=== PATIENT | male | born 1960 | race Asian ===

== ENCOUNTER → 2020-09-11 08:44 | Outpatient (BNVA) | payer OTHER, SELFPAY | PROVIDERS: PCP Internal Medicine; Visit Provider Internal Medicine Cardiovascular Disease | DX: I70.0 Atherosclerosis of aorta (principal) | CPT/HCPCS: 93005 ==

== ENCOUNTER 2022-08-28 14:30 | Outpatient (REF) | payer OTHER, SELFPAY ==
[2022-08-29 11:43] LABS: CRP High Sensitivity 1.3 mg/L
== END 2022-08-28 14:31 | disposition home or self-care (01) ==
LOC: HO.LAB 14:30
PROVIDERS: PCP Internal Medicine; Referring Provider Internal Medicine; Visit Provider Internal Medicine Cardiovascular Disease
DX: I70.0 Atherosclerosis of aorta (principal); E78.5 Hyperlipidemia, unspecified
CPT/HCPCS: 36415; 86141; 93005

== ENCOUNTER 2023-10-29 11:15 | Outpatient (AMB) | payer OTHER, SELFPAY ==
--- NOTE | 2023-10-29 11:16 | A.OFFVIS_ITS ---
Intake Vital Signs 10/29/23 11:19 Height 5 ft 9 in Weight 194 lb 0.108 oz BMI 28.6 BP 138/71 Blood Pressure Location Lt brachial Position Sitting Pulse 81 Intake Visit Reasons: Crohn's disease Intake Note: Solis presents in the office as a new patient for Crohns disease. CC: Allergies ciprofloxacin [From Cipro] Allergy (Mild, Verified 10/29/23 11:19) Unknown HPI HPI Comments History of Present Illness Details 63 y.o M with PMH of known hx of crohns disease, GERD with BE, HTN who is here to establish care. IBD History: Age/Year: 30s abd cramping, fatigue, diarrhea with bleeding. Location: Right sided colon with rectal sparing Current meds: None Prev meds:Lialda, Asacol, canasa supp PRN Colonoscopy: [place] 2022 (Roland): Abd surgeries: none Fam hx: sister with crohns. EIM: ? Sacroilitis in 40s. Reports having decade of upper gastrointestinal sx that were attributed to functional GI sx until he landed in hospital in his 30s with GI bleeding and required a scope which confirmed the diagnosis. Has been to many doctors since then including Catarina Bolanos, Terry, Guadalupe, Femi, Roland. [place] reports not available but from previous documentation has had evidence of endoscopic inflammation. Pt hesitant to escalate therapy beyond mesalamine due to side effect profile. Currently: no abd pain, diarrhea, blood in stool. No unintentional weight loss. At an average has 2 flares a year that last a few days. Last hospitalization was in 30s. Also has hx of GERD with BE. Most recent EGD was 2022 - was told no martinez's. Currently not on antisecretory therapy. Frustrated that had conflicting report of GERD/BE but reviewed data available from [facility] including EGD, motiltiy study and Castillo that all CONFIRM gerd with esophagitis. Not a candidate for LINX and TIF. Pt does not wish to pursue surgical fundoplication. PFSH Medical History Carotid artery plaque Atherosclerosis of abdominal aorta Surgical History Hx of colonoscopy History of esophagogastroduodenoscopy (EGD) Hx of hand surgery History of shoulder surgery Family History Father Cancer Mother Arthritis Review of Systems Const All systems reviewed & are unremarkable except as noted in HPI and below Physical Exam Vital Signs: Last Vital Signs Pulse 81 10/29/23 11:19 BP 138/71 10/29/23 11:19 BMI result Body Mass Index 28.6 Gen appear: NAD HEENT: nonicteric, no cervical lymphadenopathy Chest: CTA CVS: Regular S1/S2 Abd: soft, nontender, nondistended, bowel sounds + Ext: no peripheral edema Neuro: A/Ox3, noted to move all extremities spontaneously Psych: interacting appropriately Const General: cooperative, healthy appearing and comfortable Orientation/consciousness: patient oriented x3 Resp Effort & Inspection: normal respiratory effort Neuro General: patient oriented x3 and gait normal Assessment & Plan Assessment & Plan (1) Crohn's colitis: Code(s): K50.10 - Crohn's disease of large intestine without complications Plan: Reported that sometimes subjective sx do not correlate with degree of active colitis and therefore will need objective data such as CRP and fecal calpro. In addition will also get baseline labs for renal and liver function as well as hep, TB in anticipation of biologic in future. Records also requested from [facility] (Dr Watkins's office) for last colo report and path. He will likely need a colo this year or next for IBD dysplasia screening. Was also counseled on sun safety. (2) Barretts esophagus: Code(s): K22.70 - Martinez's esophagus without dysplasia (3) GERD (gastroesophageal reflux disease): Code(s): K21.9 - Gastro-esophageal reflux disease without esophagitis Plan: Pt was educated that based on endoscopic evidence of esophagitis, motility study and pH capsule study, he DOES have gerd and with underlying BE should be on antisecretory therapy saqib PPI to mitigate the albeit small but finite risk of progression to adenoca. Pt understands but would still like to hold off as he reports was told does NOT have barretts. EGD records from Dr Watkins's awaited as above. Plan Follow up 8 weeks Orders: Orders Complete Blood Count no Diff Today K21.9 - Gastro-esophageal reflux disease without esophagitis, K22.70 - Martinez's esophagus without dysplasia, K50.10 - Crohn's disease of large intestine without complications Ferritin Today K21.9 - Gastro-esophageal reflux disease without esophagitis, K22.70 - Martinez's esophagus without dysplasia, K50.10 - Crohn's disease of large intestine without complications Vitamin B12 and Folate Today K21.9 - Gastro-esophageal reflux disease without esophagitis, K22.70 - Martinez's esophagus without dysplasia, K50.10 - Crohn's disease of large intestine without complications Vitamin D 25-OH Total Today K21.9 - Gastro-esophageal reflux disease without esophagitis, K22.70 - Martinez's esophagus without dysplasia, K50.10 - Crohn's disease of large intestine without complications Hepatitis A IgG Today K21.9 - Gastro-esophageal reflux disease without esophagi tis, K22.70 - Martinez's esophagus without dysplasia, K50.10 - Crohn's disease of large intestine without complications Hepatitis C Antibody Today K21.9 - Gastro-esophageal reflux disease without esophagitis, K22.70 - Martinez's esophagus without dysplasia, K50.10 - Crohn's disease of large intestine without complications Thiopurine Methyltransferase Today K21.9 - Gastro-esophageal reflux disease without esophagitis, K22.70 - Martinez's esophagus without dysplasia, K50.10 - Crohn's disease of large intestine without complications C Reactive Protein Today K21.9 - Gastro-esophageal reflux disease without esophagitis, K22.70 - Martinez's esophagus without dysplasia, K50.10 - Crohn's disease of large intestine without complications Calprotectin, Fecal Today K21.9 - Gastro-esophageal reflux disease without esophagitis, K22.70 - Martinez's esophagus without dysplasia, K50.10 - Crohn's disease of large intestine without complications Comprehensive Met. Panel Today K21.9 - Gastro-esophageal reflux disease without esophagitis, K22.70 - Martinez's esophagus without dysplasia, K50.10 - Crohn's disease of large intestine without complications TSH reflex Free T4 Today K21.9 - Gastro-esophageal reflux disease without esophagitis, K22.70 - Martinez's esophagus without dysplasia, K50.10 - Crohn's disease of large intestine without complications Transglutaminase IgA Today K21.9 - Gastro-esophageal reflux disease without esophagitis, K22.70 - Martinez's esophagus without dysplasia, K50.10 - Crohn's disease of large intestine without complications Immunoglobulin A Today K21.9 - Gastro-esophageal reflux disease without esophagitis, K22.70 - Martinez's esophagus without dysplasia, K50.10 - Crohn's disease of large intestine without complications Hepatitis B Core Antibody Today K21.9 - Gastro-esophageal reflux disease without esophagitis, K22.70 - Martinez's esophagus without dysplasia, K50.10 - Crohn's disease of large intestine without complications Hepatitis B Surface Antibody Today K21.9 - Gastro-esophageal reflux disease without esophagitis, K22.70 - Martinez's esophagus without dysplasia, K50.10 - Crohn's disease of large intestine without complications Hepatitis B Surface Antigen Today K21.9 - Gastro-esophageal reflux disease without esophagitis, K22.70 - Martinez's esophagus without dysplasia, K50.10 - Crohn's disease of large intestine without complications T Spot TB Today K21.9 - Gastro-esophageal reflux disease without esophagitis, K22.70 - Martinez's esophagus without dysplasia, K50.10 - Crohn's disease of large intestine without complications IRON PROFILE Today K21.9 - Gastro-esophageal reflux disease without esophagitis, K22.70 - Martinez's esophagus without dysplasia, K50.10 - Crohn's disease of large intestine without complications Coding Level of Care Code New Pt Level 5 (33813) Diagnoses Crohn's colitis K50.10 Barretts esophagus K22.70 GERD (gastroesophageal reflux disease) K21.9
[2023-10-29 11:19] VITALS: BP 138/71; PULSE 81; BMI 28.6
== END 2023-10-29 12:12 | disposition home or self-care (01) ==
PROVIDERS: PCP Family Medicine; Visit Provider Internal Medicine
DX: K50.10 Crohn's disease of large intestine without complications (principal); K22.70 Barrett's esophagus without dysplasia; K21.9 Gastro-esophageal reflux disease without esophagitis
CPT/HCPCS: 99204

== ENCOUNTER 2023-10-29 11:15 | Outpatient (REF) | payer OTHER, SELFPAY ==
[2023-10-29 12:48] LABS: Hematocrit 47.6 % (42.0-52.0); Hemoglobin 16.2 g/dl (14.0-18.0); Mean Corpuscular Hemoglobin 32.4 pg (27.0-33.0); Mean Corpuscular Volume 95.2 fL (80.0-98.0); Mean Platelet Volume 9.6 fL (9.4-12.4); Platelet Count 297 X10*3/uL (160-400); Red Cell Distribution Width 12.6 % (11.0-16.0); White Blood Count 8.6 X10*3/uL (4.8-10.8)
[2023-10-29 13:29] LABS: Alanine Aminotransferase 13 U/L (0-40); Albumin Level 4.1 g/dL (3.5-5.0); Alkaline Phosphatase 81 U/L (39-117); Anion Gap 11 (12-20); Aspartate Amino Transferase 12 U/L (5-37); Bilirubin Total 0.6 mg/dL (0.0-1.0); Blood Urea Nitrogen 22 mg/dL (9-16); C Reactive Protein < 0.10 mg/dL (< or = 0.50); Calcium 9.7 mg/dL (8.4-10.2); Carbon Dioxide 27 mmol/L (22-29); Chloride 106 mmol/L (96-108); Estimated Glomerular Filt Rate > 60; Glucose Random 107 mg/dL (60-115); Iron 145 mcg/dL (45-160); Percent Iron Saturation 47 % (15-50); Potassium 4.2 mmol/L (3.3-5.1); Sodium 140 mmol/L (135-145); Total Iron Binding Capacity 309 mcg/dL (228-428); Total Protein 7.4 g/dL (6.5-8.0); Unsaturated Iron Binding 164 ug/dL
[2023-10-29 13:57] LABS: Ferritin 124 ng/mL (20-250); TSH reflex Free T4 1.33 uIU/mL (0.32-4.0); Vitamin D 25-OH Total 53.2 ng/mL (>30)
[2023-10-29 14:01] LABS: Folate 11.7 ng/mL (> or = 4.0); Vitamin B12 305 pg/mL (200-900)
[2023-10-30 08:59] LABS: Hepatitis A Antibody IgG REACTIVE (Nonreactive); ~Hepatitis A Antibody IgG 1.49 S/CO (0.00-0.99)
[2023-10-30 09:00] LABS: HBS Num1 70.88 mIU/mL (0-7.99); HBc Num1 0.17 S/CO (0.00-0.79); HBsAGNum1 0.44 S/CO (0.00-0.99); Hepatitis B Core Antibody Nonreactive (Nonreactive); Hepatitis B Surface Antigen Negative (Negative); ~HepC Num1 0.17 S/CO (0.00-0.79); ~Hepatitis B Surface Antibody REACTIVE (Nonreactive); ~Hepatitis C Antibody Nonreactive (Nonreactive)
[2023-10-30 17:04] LABS: Immunoglobulin A 322 mg/dL (70-320)
[2023-10-30 19:18] LABS: Transglutaminase IgA <1.0 U/mL
[2023-11-01 13:23] LABS: TS Negative Control Passed; TS Panel A 0; TS Panel B 2; TS Positive Control Passed; TSpotTB Negative (Negative)
[2023-11-16 18:19] LABS: TPMT Activity 14
== END 2023-10-29 11:16 | disposition home or self-care (01) ==
LOC: HO.LAB 11:15
PROVIDERS: PCP Family Medicine; Visit Provider Internal Medicine
DX: Z11.1 Encounter for screening for respiratory tuberculosis (principal); K50.10 Crohn's disease of large intestine without complications; K22.70 Barrett's esophagus without dysplasia; K21.9 Gastro-esophageal reflux disease without esophagitis
CPT/HCPCS: 36415; 80053; 82306; 82607; 82728; 82746; 82784; 83540; 84433; 84443; 85027; 86140; 86364; 86481; 86704; 86706; 86708; 86803; 87340

== ENCOUNTER 2023-11-06 14:40 | Outpatient (REF) | payer OTHER, SELFPAY ==
[2023-11-14 00:03] LABS: Calprotectin, Fecal 34 mcg/g
== END 2023-11-06 14:41 | disposition home or self-care (01) ==
LOC: HO.LNP 14:40
PROVIDERS: Visit Provider Internal Medicine
DX: K50.10 Crohn's disease of large intestine without complications (principal); K21.9 Gastro-esophageal reflux disease without esophagitis; K22.70 Barrett's esophagus without dysplasia
CPT/HCPCS: 83993

== ENCOUNTER 2023-12-29 08:57 | Outpatient (AMB) | payer OTHER, SELFPAY ==
--- NOTE | 2023-12-29 08:58 | A.OFFVIS_ITS ---
Vital Signs 12/29/23 08:59 Height 5 ft 9 in Weight 194 lb 0.108 oz BMI 28.6 BP 145/76 H Blood Pressure Location Lt brachial Position Sitting Pulse 75 Intake Visit Reasons: 8 week follow up crohns, BE Intake Note: Solis presents in the office as a 8 week follow up regarding crohns. CC: states that he is here for results to his labs and get scheduled for procedures. Allergies ciprofloxacin [From Cipro] Allergy (Mild, Verified 12/29/23 09:00) Unknown HPI Comments Details: 63 y.o M with PMH of known hx of crohns disease, GERD with BE, HTN who is here to establish care. 10/29/23: IBD History: Age/Year: 30s abd cramping, fatigue, diarrhea with bleeding. Location: Right sided colon with rectal sparing Current meds: None Prev meds:Lialda, Asacol, canasa supp PRN Colonoscopy: [place] 2022 (Roland): Abd surgeries: none Fam hx: sister with crohns. EIM: ? Sacroilitis in 40s. Reports having decade of upper gastrointestinal sx that were attributed to functional GI sx until he landed in hospital in his 30s with GI bleeding and required a scope which confirmed the diagnosis. Has been to many doctors since then including Catarina Bolanos, Terry, Guadalupe, Femi, Roland. [place] reports not available but from previous documentation has had evidence of endoscopic inflammation. Pt hesitant to escalate therapy beyond mesalamine due to side effect profile. Currently: no abd pain, diarrhea, blood in stool. No unintentional weight loss. At an average has 2 flares a year that last a few days. Last hospitalization was in 30s. Also has hx of GERD with BE. Most recent EGD was 2022 - was told no martinez's. Currently not on antisecretory therapy. Frustrated that had conflicting report of GERD/BE but reviewed data available from [facility] including EGD, motiltiy study and Castillo that all CONFIRM gerd with esophagitis. Not a candidate for LINX and TIF. Pt does not wish to pursue surgical fundoplication. 12/29/23: Here for follow up. Records were requested from [facility] but returned with not a pt here notification. Pt notified. Otherwise, no acute GI issues. Lab results reviewed. Pt on pepcid, cont to be reluctant to switch to PPI despite known hx of GERD with esophagitis and ?BE. PFSH Medical History Carotid artery plaque Atherosclerosis of abdominal aorta Surgical History Hx of colonoscopy History of esophagogastroduodenoscopy (EGD) Hx of hand surgery History of shoulder surgery Family History Father Cancer Mother Arthritis Review of Systems Const All systems reviewed & are unremarkable except as noted in HPI and below Physical Exam Vital Signs: Last Vital Signs Pulse 75 12/29/23 08:59 BP 145/76 H 12/29/23 08:59 BMI result Body Mass Index 28.6 NAD Nonicteric No overt resp distress A/Ox3, normal gait Assessment & Plan Assessment & Plan (1) Crohn's colitis: Code(s): K50.10 - Crohn's disease of large intestine without complications Category: Medical (2) Barretts esophagus: Code(s): K22.70 - Martinez's esophagus without dysplasia Category: Medical (3) GERD (gastroesophageal reflux disease): Code(s): K21.9 - Gastro-esophageal reflux disease without esophagitis Category: Medical Plan #Crohns: Appears to be in biochemical remission. As above, pt not on any meds. Treats occ flares with PO pred course. Plan: - [place] for IBD dysplasia screening due next year. - CRP and fecal calpro in 6 months for proactive disease monitoring/ - If results normal, follow up in a year. #GERD w/ BE Pt was educated that based on endoscopic evidence of esophagitis, motility study and pH capsule study, he DOES have gerd and with underlying BE should be on antisecretory therapy saqib PPI to mitigate the albeit small but finite risk of progression to adenoca. Pt understands but would still like to hold off as he reports was told does NOT have barretts. Records could not be obtained from Dr Watkins's as above. Pt mentions he will call their office and attempt to get them faxed over. Will also book for EGD next year alongside colo. Orders: Orders C Reactive Protein 6 Months K50.10 - Crohn's disease of large intestine without complications Calprotectin, Fecal 6 Months K50.10 - Crohn's disease of large intestine without complications Coding Level of Care Code Est Pt Level 3 (39452) Diagnoses Crohn's colitis K50.10 Barretts esophagus K22.70 GERD (gastroesophageal reflux disease) K21.9
[2023-12-29 08:59] VITALS: BP 145/76; PULSE 75; BMI 28.6
== END 2023-12-29 09:34 | disposition home or self-care (01) ==
PROVIDERS: PCP Family Medicine; Visit Provider Internal Medicine
DX: K50.10 Crohn's disease of large intestine without complications (principal); K22.70 Barrett's esophagus without dysplasia; K21.9 Gastro-esophageal reflux disease without esophagitis
CPT/HCPCS: 99213

== ENCOUNTER → 2023-12-29 08:57 | Outpatient (BNVA) | payer OTHER, SELFPAY | PROVIDERS: PCP Family Medicine; Visit Provider Internal Medicine ==

== ENCOUNTER 2024-03-08 09:53 | Outpatient (AMB) | payer OTHER, SELFPAY ==
[2024-03-08 10:00] VITALS: BP 126/70; PULSE 72; RESP 15; TEMP 36.4; O2SAT 98; BMI 29.3
--- NOTE | 2024-03-08 10:00 | MHC.PC.OV ---
Vital Signs 03/08/24 10:00 Height 5 ft 9 in Weight 198 lb 6 oz BMI 29.3 BP 126/70 Blood Pressure Location Rt brachial Position Sitting Respiration 15 Pulse 72 Pulse Source Pulse Oximeter Temp 97.6 F Temp Source Temporal Artery Scan Pulse Oximetry (%) 98 Oxygen Delivery Method Room Air Intake Visit Reasons: Establish Care Intake Note: Patient states that in the morning he has dark cloudy urine. Hat Braider Required: No Accompanied by: Self / Same As Patient Allergies dog dander Allergy (Intermediate, Verified 03/08/24 10:13) Unknown ciprofloxacin [From Cipro] Allergy (Mild, Verified 03/08/24 10:12) Unknown Tobacco use date assessed: 03/08/24 Dental Screening Dental Screen Date: 03/08/24 Did you have a dental visit in the last 12 months?: No Did you have a dental problem in the last 6 months where you did not have access to dental care?: No Was dental information given to patient?: Yes HPI Establish Care HPI Details New?patient Prior?PCP: Savannah Herman Last?office?visit/CPE: 1 yr Acute?issue(s): complex?cyst?lower?pole?left?kidney & Small R kidney stone, elevated?rheumatoid?factor?and?JACLYN -Urologist [facility] and follows up with them Hypertension -Blood pressure today 126/70. He is on valsartan 80mg daily. PMHx:??Hypertension,?complex?cyst?lower?pole?left?kidney, elevated?rheumatoid?factor?and?JACLYN, Crohn's, L shoulder impingement, Atherosclerosis of abdominal aorta, Carotid artery plaque. Pulm nodule. Followed by Dr. Hernandez. Detached Retina - Dr. Bautista & Dr. Head SurgHx: L detached retina repair, Shoulder surgery, Hand surgery 3-4x, Vasectomy. FHx: Dad: Glioblastoma. Mom: Healthy. Sister: Crohn's. SocHx: Nonsmoker. EtOH none. No drugs. HPI Comments History of Present Illness Details Documentation assistance for Macario Solano MD, was provided by Chauncey Tomlinson,? Forming Press Operator on 03/08/2024 at 11:03 AM ESTDennis Meraz, Dr. Solano, have read, observed, and verified documentation. [facility] Medical History Sleep apnea Cyst of right kidney Carotid artery plaque Atherosclerosis of abdominal aorta Surgical History Hx of colonoscopy History of esophagogastroduodenoscopy (EGD) Hx of hand surgery History of shoulder surgery Family History Father Cancer Mother Arthritis Social History Household Members: None Both parents involved: No Caregiver staying overnight: No Housing: House Are you a primary insurance healthcare representative to a significant other at home: No Do you presently have visiting nurse or other home services: No Alcohol intake: never Patient Tobacco Use Status: Never used Tobacco Tobacco use type: Cigarette e-Cigarette/Vaping Use: Never Used Special leila needs: No service: Yes Current occupational status: retired Cognitive needs: No Hearing needs: No Vision needs: Yes (Patient wears glasses.) Questionnaire PHQ-9 Over the last 2 weeks, how often have you been bothered by any of the following problems? 1. Little interest or pleasure in doing things: not at all 2. Feeling down, depressed, or hopeless: not at all 3. Trouble falling or staying asleep, or sleeping too much: not at all 4. Feeling tired or having little energy: not at all 5. Poor appetite or overeating: not at all 6. Feeling bad about yourself - or that you are a failure or have let yourself or your family down: not at all 7. Trouble concentrating on things, such as reading the newspaper or watching television: not at all 8. Moving or speaking so slowly that other people could have noticed. Or the opposite - being so fidgety or restless that you have been moving around a lot more than usual: not at all 9. Thoughts that you would be better off or of hurting yourself in some way: not at all Total score: 0 Depression Screening Interpretation: Negative Depression Screening Done: Yes 42009 - PHQ-9 Billing: Yes Source: Developed by Drs. Keyshawn Rodriguez, Ladonna Spears, Clovis Frances and colleagues, with an educational maggie from [employer]. Thrive Questionnaire Date Thrive assessed: 03/08/24 I am a: Patient What is your living situation today?: I have a steady place to live Within the past 12 months, did the food you bought not last and you didn't have the money to get more?: Never true Within the past 12 months, did you worry whether your food would run out before you got money to buy more?: Never true Do you have trouble paying for medicines?: No Do you have trouble getting transportation to medical appointments?: No Do you have trouble paying your heating and electricity bill?: No Do you have trouble taking care of your child, family member or friend?: No Do you have trouble with day-to-day activities such as bathing, preparing meals, shopping, managing finances, etc.?: No Are you currently unemployed and looking for a job?: No Are you interested in more education?: No Please select the resources that you would like help with: None Currently or been in a relationship where the following occur: No concerns reported THRIVE Score: 0 AUDIT C Alcohol Use Questionnaire (AUDIT-C) 1. How often do you have a drink containing alcohol?: Never 3. How often do you have six or more drinks on one occasion?: Never Total Score: 0 TEGAN-7 AMB Questionnaire TEGAN-7 Date TEGAN - 7 assessed: 03/08/24 Feeling nervous, anxious, or on edge: 0 = Not at all Not being able to stop or control worryin = Not at all Worrying too much about different things: 0 = Not at all Trouble relaxin = Not at all Being so restless that it is hard to sit still: 0 = Not at all Becoming easily annoyed or irritable: 0 = Not at all Feeling afraid as if something awful might happen: 0 = Not at all Total TEGAN-7 score (0-4 normal; 5-9 mild; 10-14 moderate; 15-21 severe): 0 Source: Developed by Drs. Keyshawn Rodriguez, Ladonna Spears, Clvois Frances and colleagues, with an educational maggie from [employer]. TEGAN-7 Assessment Billing TEGAN-7 Assessment Tool: TEGAN-7 Assessment 82048 Review of Systems Const Denies chills, Denies fatigue, Denies fever(s), Denies headache(s) and Denies weakness ENT Denies dizziness and Denies headache(s) Card Denies chest pain, Denies lightheadedness, Denies dyspnea and Denies other (Palpitations) Resp Denies cough, Denies dyspnea, Denies wheezing and Denies other ( shortness of breath) Musc Denies numbness and Denies tingling Neuro Denies dizziness, Denies headache(s), Denies numbness, Denies tingling, Denies paresthesias and Denies weakness Psych Denies anxiety and Denies depression Endo Denies fatigue Aller/Immun Denies wheezing Physical exam (Primary Care) Vital Signs: Last Vital Signs Temp 97.6 F 03/08/24 10:00 Pulse 72 03/08/24 10:00 Resp 15 03/08/24 10:00 BP 126/70 03/08/24 10:00 Pulse Ox 98 03/08/24 10:00 Oxygen Delivery Method Room Air 03/08/24 10:00 BMI result Body Mass Index 29.3 Tobacco/Smoking Status: Tobacco use Status Tobacco use date assessed 03/08/24 03/08/24 10:16 Patient Tobacco Use Status Never used Tobacco 03/08/24 10:16 Tobacco use type Cigarette 03/08/24 10:16 e-Cigarette/Vaping Use Never Used 03/08/24 10:16 PHQ-9: PHQ-9 Score PHQ-9: Total score 0 03/08/24 10:29 Depression Screening Interpretation: Negative Thrive Assessment: Date of Thrive Assessment Date Thrive assessed 03/08/24 03/08/24 10:16 Currently or been in a relationship where the following occur: No concerns reported Const General: no acute distress and well developed Nutritional Appearance: well nourished Orientation/consciousness: patient oriented x3 [facility] Head: Yes normocephalic and Yes atraumatic Eyes General: appearance normal, both eyes and all related structures Pupils: Equal, round and reactive pupils present EOM: EOMs intact bilaterally Resp Effort & Inspection: normal respiratory effort Auscultation: clear to auscultation bilaterally Cardio Rate: regular rate Rhythm: regular rhythm Heart sounds: S1 normal heart sound present, S2 normal heart sound present, no gallops, no murmurs and no rubs Neuro General: patient oriented x3 and gait normal Cranial nerves: Yes Equal, round and reactive pupils present Psych Affect: normal affect Assessment and Plan Assessment & Plan (1) Left shoulder pain: Code(s): M25.512 - Pain in left shoulder Plan: Followed?by?Ortho?for?left?shoulder?impingement. Continue?conservative?care?including?physical?therapy?with?dry?needling (2) Hypertension: Code(s): I10 - Essential (primary) hypertension Plan: Blood?pressure?is?controlled.??Goal?is?less?than?130/80 Continue?valsartan (3) Complex renal cyst: Code(s): N28.1 - Cyst of kidney, acquired Plan: Followed?by[facility] I?have?asked?him?to?forward?his?urologist?notes (4) Crohn's colitis: Code(s): K50.10 - Crohn's disease of large intestine without complications Plan: Followed?by?[facility] Patient?gets?flare?ups?of?up?to?about?3?times?per?year. Follow-up?with?GI Will?help?manage?acutely?if?patient?calls?with?flare (5) Carotid artery plaque: Code(s): I65.29 - Occlusion and stenosis of unspecified carotid artery Plan: Maintain?blood?pressure?less?than?130/80 Recommended?LDL?cholesterol?less?than?70.??Patient?will?work?on?diet?low?in?saturated?fats?and?cholesterol Checking?lipids?with?upcoming?blood?draw. He?is?somewhat?against?taking?statin?medications?but?we?did?have?a?long?discussion?about?this. Will?try?to?have?patient?reach?goal?without?medication?however?we?did?talk?about?the?fact?that?statin?medications?reduce?intravascular?inflammation?which?he?may?have?due?to?Crohn's?so?best?recommendation?might?still?be?using?a?statin?at?low?dose. (6) Elevated antinuclear antibody (JACLYN) level: Code(s): R76.8 - Other specified abnormal immunological findings in serum Plan: JACLYN?and?rheumatoid?factor?mildly?elevated?likely?secondary?to?Crohns (7) Laboratory exam ordered as part of routine general medical examination: Code(s): Z00.00 - Encounter for general adult medical examination without abnormal findings Plan: Patient?requests checking?magnesium?level?and?A1c?along?with?his?pre?physical?labs. Ordered (8) Hyperlipidemia: Code(s): E78.5 - Hyperlipidemia, unspecified Plan: LDL?cholesterol?is?above?goal?of?less?than?70?for?this?patient See?above?for?discussion?on?recommendations (9) Atherosclerosis of abdominal aorta: Code(s): I70.0 - Atherosclerosis of aorta Plan: As?above Orders: Orders Complete Blood Count Auto Diff Today Z00.00 - Encounter for general adult medical examination without abnormal findings Lipid Panel Today Z00.00 - Encounter for general adult medical examination without abnormal findings Prostate Specific Antigen Scr Today Z00.00 - Encounter for general adult medical examination without abnormal findings, Z12.5 - Encounter for screening for malignant neoplasm of prostate TSH reflex Free T4 Today Z00.00 - Encounter for general adult medical examination without abnormal findings UA and rflx microscopic Today Z00.00 - Encounter for general adult medical examination without abnormal findings Hemoglobin A1c Today R73.01 - Impaired fasting glucose, Z00.00 - Encounter for general adult medical examination without abnormal findings Magnesium Today Z00.00 - Encounter for general adult medical examination without abnormal findings Comprehensive [place]. Panel Fast Today Z00.00 - Encounter for general adult medical examination without abnormal findings Microalbumin, Random (w Creat) Today I10 - Essential (primary) hypertension, Z00.00 - Encounter for general adult medical examination without abnormal findings Vitamin D 25-OH Total Today E55.9 - Vitamin D deficiency, unspecified, Z00.00 - Encounter for general adult medical examination without abnormal findings Coding Level of Care Code New Pt Level 4 (02739) Diagnoses Left shoulder pain M25.512 Hypertension I10 Complex renal cyst N28.1 Crohn's colitis K50.10 Carotid artery plaque I65.29 Elevated antinuclear antibody (JACLYN) level R76.8 Laboratory exam ordered as part of routine general medical examination Z00.00 Hyperlipidemia E78.5 Atherosclerosis of abdominal aorta I70.0 Additional Codes TEGAN-7 Assessment Billing - TEGAN-7 Assessment Tool: TEGAN-7 Assessment 88905 ([id number])
== END 2024-03-08 11:00 | disposition home or self-care (01) ==
PROVIDERS: PCP Family Medicine; Visit Provider Family Medicine
DX: M25.512 Pain in left shoulder (principal); K50.10 Crohn's disease of large intestine without complications; I70.0 Atherosclerosis of aorta; I10 Essential (primary) hypertension; N28.1 Cyst of kidney, acquired; I65.29 Occlusion and stenosis of unspecified carotid artery; R76.8 Other specified abnormal immunological findings in serum; E78.5 Hyperlipidemia, unspecified
CPT/HCPCS: 99214

== ENCOUNTER 2024-05-03 08:13 | Outpatient (REF) | payer OTHER, SELFPAY ==
[2024-05-03 11:17] LABS: MANUAL DIFF FLAG NO
[2024-05-03 11:26] LABS: Appearance Urine Turbid; Color Urine Yellow; Glucose Urine UA Negative (Negative); Leukocyte Esterase Urine Negative (Negative); Nitrite Urine Negative (Negative); PH 5.5 (5.0-9.0); Specific Gravity - Urine 1.025 (1.005-1.025); Urine Blood Negative (Negative); Urine Ketones Negative (Negative); Urine Protein Trace mg/dL (Neg-Trace)
[2024-05-03 11:49] LABS: Basophils Percent Auto 0.7 % (0-2); Eosinophils Absolute Auto 0.1 X10*3/uL (0.0-0.4); Eosinophils Percent Auto 2.1 % (0-4); Hematocrit 46.5 % (42.0-52.0); Hemoglobin 15.9 g/dl (14.0-18.0); Imm Gran Abs Auto 0.01 X10*3/uL (0.00-0.03); Imm Gran Pct Auto 0.2 % (0.0-0.4); Lymphocytes Absolute Auto 1.7 X10*3/uL (1.2-4.9); Lymphocytes Percent Auto 29.3 % (20-40); Mean Corpuscular HGB Conc 34.2 g/dl (31.0-36.0); Mean Corpuscular Hemoglobin 31.6 pg (27.0-33.0); Mean Corpuscular Volume 92.4 fL (80.0-98.0); Mean Platelet Volume 9.6 fL (9.4-12.4); Monocytes Absolute Auto 0.7 X10*3/uL (0.1-1.2); Monocytes Percent Auto 11.5 % (2-11); Neutrophils Absolute Auto 3.2 x10*3/uL (2.0-8.3); Neutrophils Percent Auto 56.2 % (45-73); Platelet Count 169 X10*3/uL (160-400); Red Blood Count 5.03 X10*6/uL (4.60-5.80); Red Cell Distribution Width 12.3 % (11.0-16.0); White Blood Count 5.7 X10*3/uL (4.8-10.8)
[2024-05-03 12:16] LABS: Estimated Average Glucose 111 mg/dL; Hemoglobin A1c % 5.5 % (<6.0)
[2024-05-03 12:19] LABS: Prostate Specific Antigen Scr 1.24 ng/mL (<0.05-4.0)
[2024-05-03 12:29] LABS: Creatinine Urine 198.92 mg/dL
[2024-05-03 13:09] LABS: Alanine Aminotransferase 22 U/L (0-40); Albumin Level 3.7 g/dL (3.5-5.0); Alkaline Phosphatase 55 U/L (39-117); Anion Gap 10 (12-20); Aspartate Amino Transferase 15 U/L (5-37); Bilirubin Total 0.6 mg/dL (0.0-1.0); Blood Urea Nitrogen 14 mg/dL (9-16); Calcium 8.7 mg/dL (8.4-10.2); Carbon Dioxide 25 mmol/L (22-29); Chloride 110 mmol/L (96-108); Cholesterol 136 mg/dL (<200); Estimated Glomerular Filt Rate > 60; Glucose Fasting 109 mg/dL (60-99); HDL Cholesterol 38 mg/dL (>40); LDL Cholesterol Calculated 76 mg/dL (<100); Potassium 4.1 mmol/L (3.3-5.1); Sodium 141 mmol/L (135-145); TSH reflex Free T4 1.98 uIU/mL (0.32-4.0); Total Protein 6.6 g/dL (6.5-8.0); Triglycerides 112 mg/dL (<150); Vitamin D 25-OH Total 62.7 ng/mL (>30)
== END 2024-05-03 08:14 | disposition home or self-care (01) ==
LOC: HO.WFDLDS 08:13
PROVIDERS: Visit Provider Family Medicine
DX: Z00.00 Encounter for general adult medical examination without abnormal findings (principal); I10 Essential (primary) hypertension; Z12.5 Encounter for screening for malignant neoplasm of prostate; R73.01 Impaired fasting glucose; E55.9 Vitamin D deficiency, unspecified
CPT/HCPCS: 36415; 80053; 80061; 81003; 82043; 82306; 82570; 83036; 83735; 84153; 84443; 85025; 86140

== ENCOUNTER 2024-05-05 11:56 | Outpatient (REF) | payer OTHER, SELFPAY ==
[2024-05-14 03:33] LABS: Calprotectin, Fecal 12 mcg/g
== END 2024-05-05 11:57 | disposition home or self-care (01) ==
LOC: HO.LNP 11:56
PROVIDERS: Visit Provider Internal Medicine
DX: K50.10 Crohn's disease of large intestine without complications (principal)
CPT/HCPCS: 83993

== ENCOUNTER 2024-05-20 09:30 | Outpatient (AMB) | payer OTHER, SELFPAY ==
--- NOTE | 2024-05-20 09:36 | A.OFFPC_ITS ---
Vital Signs 05/20/24 09:37 Height 5 ft 9 in Weight 198 lb 8 oz BMI 29.3 BP 132/72 Blood Pressure Location Rt brachial Position Sitting Respiration 14 Pulse 75 Pulse Source Pulse Oximeter Pulse Oximetry (%) 95 Oxygen Delivery Method Room Air Intake Visit Reasons: CPE with f/u labs and health maint. Intake Note: Physical Yarn Handler Required: No Allergies dog dander Allergy (Intermediate, Verified 05/20/24 09:36) Unknown ciprofloxacin [From Cipro] Allergy (Mild, Verified 05/20/24 09:36) Unknown Medication List - Last Reconciled 05/20/24 by Sunita Sharp PA-C valsartan 80 mg PO DAILY Tobacco use date assessed: 03/08/24 Dental Screening Dental Screen Date: 03/08/24 Did you have a dental visit in the last 12 months?: Yes Did you have a dental problem in the last 6 months where you did not have access to dental care?: No Was dental information given to patient?: Patient has dentist HPI CPE with f/u labs and health maint. HPI Details Patient is a 64-year-old male with a significant past medical history of hypertension, hyperlipidemia, complex renal cysts, Crohn's disease, Pak's esophagus, atherosclerosis presenting today for a physical exam. He normally follows with Dr. Solano. He is relatively new to this practice. Prior?PCP: Dr Kelly Lowery [facility] uro: Follows with [facility] for his renal cysts and kidney stone. He gets routine ultrasounds. He has had an MRI that was ordered by his mortgage or loan underwriter to monitor this as well. PULM: Has a history of a pulmonary nodule. Follows with Dr. Sierra CV: Blood pressure today in the office is 132/72. He is on valsartan 80 mg. States that he eats very healthy. Follows with cardiology for routine surveillance of his atherosclerosis. Last LDL was 76. He does not like the idea of taking statins. GI: His Crohn's disease and GERD is controlled with diet. Follows with Gastroenterology. SurgHx: L detached retina repair, Shoulder surgery, Hand surgery 3-4x, Vasectomy. FHx: Dad: Glioblastoma. Mom: Healthy. Sister: Crohn's. SocHx: Nonsmoker. EtOH none. No drugs PFSH Medical History (Updated 07/15/24 @ 10:39 by Chauncey Tomlinson) Sleep apnea Cyst of right kidney Carotid artery plaque Atherosclerosis of abdominal aorta Surgical History Hx of colonoscopy History of esophagogastroduodenoscopy (EGD) Hx of hand surgery History of shoulder surgery Family History Father Cancer Mother Arthritis Social History Household Members: None Both parents involved: No Caregiver staying overnight: No Housing: House Are you a primary post anesthesia care unit nurse to a significant other at home: No Do you presently have visiting nurse or other home services: No Alcohol intake: never Patient Tobacco Use Status: Never used Tobacco Tobacco use type: Cigarette e-Cigarette/Vaping Use: Never Used Special leila needs: No service: Yes Current occupational status: retired Cognitive needs: No Hearing needs: No Vision needs: Yes (Patient wears glasses.) Questionnaire PHQ-9 Over the last 2 weeks, how often have you been bothered by any of the following problems? 1. Little interest or pleasure in doing things: not at all 2. Feeling down, depressed, or hopeless: not at all 3. Trouble falling or staying asleep, or sleeping too much: not at all 4. Feeling tired or having little energy: not at all 5. Poor appetite or overeating: not at all 6. Feeling bad about yourself - or that you are a failure or have let yourself or your family down: not at all 7. Trouble concentrating on things, such as reading the newspaper or watching television: not at all 8. Moving or speaking so slowly that other people could have noticed. Or the opposite - being so fidgety or restless that you have been moving around a lot more than usual: not at all 9. Thoughts that you would be better off or of hurting yourself in some way: not at all Total score: 0 Depression Screening Interpretation: Negative Depression Screening Done: Yes 13333 - PHQ-9 Billing: Yes Source: Developed by Drs. Keyshawn Rodriguez, Ladonna Spears, Clovis Frances and colleagues, with an educational maggie from [employer] Thrive Questionnaire Date Thrive assessed: 03/08/24 I am a: Patient What is your living situation today?: I choose not to answer this question Within the past 12 months, did the food you bought not last and you didn't have the money to get more?: I choose not to answer this question Within the past 12 months, did you worry whether your food would run out before you got money to buy more?: I choose not to answer this question Do you have trouble paying for medicines?: I choose not to answer this question Do you have trouble getting transportation to medical appointments?: I choose not to answer this question Do you have trouble paying your heating and electricity bill?: I choose not to answer this question Do you have trouble taking care of your child, family member or friend?: I choose not to answer this question Do you have trouble with day-to-day activities such as bathing, preparing meals, shopping, managing finances, etc.?: I choose not to answer this question Are you currently unemployed and looking for a job?: I choose not to answer this question Are you interested in more education?: I choose not to answer this question Please select the resources that you would like help with: None Currently or been in a relationship where the following occur: I choose not to answer THRIVE Score: 0 AUDIT C Alcohol Use Questionnaire (AUDIT-C) 1. How often do you have a drink containing alcohol?: Never 3. How often do you have six or more drinks on one occasion?: Never Total Score: 0 TEGAN-7 AMB Questionnaire TEGAN-7 Date TEGAN - 7 assessed: 05/20/24 Feeling nervous, anxious, or on edge: 0 = Not at all Not being able to stop or control worryin = Not at all Worrying too much about different things: 0 = Not at all Trouble relaxin = Not at all Being so restless that it is hard to sit still: 0 = Not at all Becoming easily annoyed or irritable: 0 = Not at all Feeling afraid as if something awful might happen: 0 = Not at all Total TEGAN-7 score (0-4 normal; 5-9 mild; 10-14 moderate; 15-21 severe): 0 Source: Developed by Drs. Keyshawn Rodriguez, Ladonna SpearsClovis and colleagues, with an educational maggie from [employer] TEGAN-7 Assessment Billing TEGAN-7 Assessment Tool: TEGAN-7 Assessment 88335 Physical exam (Primary Care) Vital Signs: Last Vital Signs Pulse 75 05/20/24 09:37 Resp 14 05/20/24 09:37 BP 132/72 05/20/24 09:37 Pulse Ox 95 05/20/24 09:37 Oxygen Delivery Method Room Air 05/20/24 09:37 BMI result Body Mass Index 29.3 Tobacco/Smoking Status: Tobacco use Status Tobacco use date assessed 03/08/24 05/20/24 09:45 Patient Tobacco Use Status Never used Tobacco 05/20/24 09:45 Tobacco use type Cigarette 05/20/24 09:45 e-Cigarette/Vaping Use Never Used 05/20/24 09:45 PHQ-9: PHQ-9 Score PHQ-9: Total score 0 05/20/24 09:45 Depression Screening Interpretation: Negative Thrive Assessment: Date of Thrive Assessment Date Thrive assessed 03/08/24 05/20/24 09:45 Currently or been in a relationship where the following occur: I choose not to answer Const Orientation/consciousness: patient oriented x3 HENMT Ears: hearing grossly normal bilaterally and TM's normal bilaterally General nose exam: No nasal polyps present Face and sinus: Yes sinuses nontender Mouth: Normal oral and palatal mucosa present Eyes Pupils: Equal, round and reactive pupils present EOM: EOMs intact bilaterally Neck Neck: Yes full ROM and Yes no lymphadenopathy Thyroid: Thyroid normal Chest Chest palpation & inspection: normal inspection of the chest Resp Auscultation: clear to auscultation bilaterally Cardio Rate: regular rate Rhythm: regular rhythm Heart sounds: S1 normal heart sound present and S2 normal heart sound present Peripheral pulses: Peripheral pulses 2+ throughout GI Other: Soft, nontender Auscultation: normal bowel sounds Rectal Exam - Male: Yes deferred General: Yes no CVA tenderness Back/Spine/Pelvis Other: Nontender Back: no CVA tenderness Skin General skin exam: no rashes or lesions noted Neuro General: patient oriented x3, gait normal, CN's II-XI intact bilaterally and deep tendon reflexes 2+ bilaterally Cranial nerves: Yes Equal, round and reactive pupils present Motor exam (neuro): 5/5 motor strength present throughout Sensory Exam: double simultaneous stimulation for sensation normal Coordination: [id number] test normal and Romberg test negative Extrem General: Yes normal to inspection and Yes full ROM Psych Affect: normal affect Attitude: cooperative Thought process: Normal thought process present Thought content: Normal thought content present Insight: Good insight present (Psych) Judgement: Good judgement present (Psych) Results Reviewed Results Reviewed: Laboratory Tests 05/03/24 05/03/24 08:15 08:20 WBC 5.7 RBC 5.03 Hgb 15.9 Hct 46.5 Plt Count 169 D Sodium 141 Potassium 4.1 Chloride 110 H Carbon Dioxide 25 Anion Gap 10 L Creatinine 0.89 Estimated GFR > 60 Estimat Average Glucose 111 Hemoglobin A1c % 5.5 Triglycerides 112 Cholesterol 136 LDL Cholesterol, Calc 76 HDL Cholesterol 38 L PSA Screen 1.24 TSH 1.98 Urine Creatinine 198.92 Urine Microalbumin 16.0 Microalb/Creat Ratio 8.0 Assessment and Plan Assessment & Plan (1) Routine general medical examination at a health care facility: Code(s): Z00.00 - Encounter for general adult medical examination without abnormal findings Plan: Health maintenance reviewed. Labs reviewed today with patient. (2) Crohn's colitis: Code(s): K50.10 - Crohn's disease of large intestine without complications Plan: Stable. Continue current regimen (3) Complex renal cyst: Code(s): N28.1 - Cyst of kidney, acquired Plan: Follows with [facility]. (4) Carotid artery plaque: Code(s): I65.29 - Occlusion and stenosis of unspecified carotid artery Plan: Continues to eat very healthy. Managed by Cardiology. Does not want statins. (5) Hypertension: Code(s): I10 - Essential (primary) hypertension Plan: BP WNL. Continue current regimen Plan Follow up in 6 months with PCP or sooner if needed. Patient understands and agrees with the plan. Medications: New betamethasone valerate 0.1% 1 appl topical BID PRN 45 grams 3RF rash valsartan 80 mg PO DAILY 90 tabs 3RF Coding Level of Care Code Est Pt Prev Care 40-64y(78452) Diagnoses Routine general medical examination at a health care facility Z00.00 Crohn's colitis K50.10 Complex renal cyst N28.1 Carotid artery plaque I65.29 Hypertension I10 Additional Codes TEGAN-7 Assessment Billing - TEGAN-7 Assessment Tool: TEGAN-7 Assessment 55630 ([id number])
[2024-05-20 09:37] VITALS: BP 132/72; PULSE 75; RESP 14; O2SAT 95; BMI 29.3
== END 2024-05-20 10:52 | disposition home or self-care (01) ==
PROVIDERS: PCP Family Medicine; Visit Provider Physician Assistant
DX: Z00.00 Encounter for general adult medical examination without abnormal findings (principal); K50.10 Crohn's disease of large intestine without complications; N28.1 Cyst of kidney, acquired; I65.29 Occlusion and stenosis of unspecified carotid artery; I10 Essential (primary) hypertension

== ENCOUNTER → 2024-05-20 09:30 | Outpatient (BNVA) | payer OTHER, SELFPAY | PROVIDERS: PCP Family Medicine; Visit Provider Physician Assistant | DX: Z00.00 Encounter for general adult medical examination without abnormal findings (principal); K50.10 Crohn's disease of large intestine without complications; N28.1 Cyst of kidney, acquired; I65.29 Occlusion and stenosis of unspecified carotid artery; I10 Essential (primary) hypertension | CPT/HCPCS: 96127 ==

== ENCOUNTER 2024-07-30 09:26 | Outpatient (AMB) | payer OTHER, SELFPAY ==
--- NOTE | 2024-07-30 09:29 | AM.OFFWIN_ITS ---
Intake Vital Signs 07/30/24 09:32 Height 5 ft 9 in Weight 204 lb BMI 30.1 BP 138/80 Blood Pressure Location Rt brachial Position Sitting Respiration 13 Pulse 79 Pulse Source Pulse Oximeter Temp 97.4 F Temp Source Oral Pulse Oximetry (%) 97 Oxygen Delivery Method Room Air Intake Visit Reasons: Chills, fever had a cold since last week Intake Note: Patient is complaining of coughing, post nasal drip, fever, and chills x10 days Patient Tobacco Use Status: Never used Tobacco Allergies dog dander Allergy (Intermediate, Verified 07/30/24 09:43) Unknown ciprofloxacin [From Cipro] Allergy (Mild, Verified 07/30/24 09:43) Unknown Medication List - Last Reconciled 07/30/24 by JAZMINE Lemos-KAREEN betamethasone valerate 0.1% 1 appl topical BID PRN valsartan 80 mg PO DAILY Do you need a note to return to daycare/school/sports/work: No HPI HPI Comments History of Present Illness Details History of Present Illness The patient is a 64-year-old male presenting with URI sx. The illness began last Friday with symptoms indicative of a common cold, including the production of thick mucus and possible chills. The patient noted marginal improvement by the following Friday; however, over the past few days, his condition has deteriorated. He reports night sweats, waking up drenched, and persistent chills. He also experiences fatigue. The patient has a known history of Crohn's disease, which involves careful consideration when prescribing medications such as antibiotics. Exam Awake alert NAD Sclera and conjunctiva clear bilat Nares mucoid d/c on R, turbinates erythematous and edematous worse on R, + frontal sinus tenderness with palpation TM intact bilat, + injection on R MMM, pharynx + mucoid PND RRR LS CTAB Plan - Acute Sinusitis: The plan is to initia te antibiotic therapy with Amoxicillin- Clavulanate Augmentin. Given the patient's history of Crohn's disease, care will be taken to select an antibiotic regimen with a tolerable side effect profile for his condition. I will review the patient's medical chart to confirm past medication tolerance before prescription. The patient will obtain medication from [facility] on [facility]. I reviewed chart, no listed AB use recently. Consulted w/ GI ok to use Augmentin, if diarrhea, use fiber. - Crohn's Disease: I will conduct additi onal research into the patient's history of Crohn's disease to ensure the prescribed antibiotic regimen is compatible with his condition and does not exacerbate symptoms. Further steps include confirming a history of previous interventions and complications related to Crohn?s disease. Patient was informed and verbally consented to the use of an ambient scribe for clinic note documentation during this visit. Total time spent caring for the patient today was 30 minutes. This includes time spent before the visit reviewing the chart, time spent during the visit, and time spent after the visit on documentation [facility] Medical History (Updated 03/08/24 @ 10:39 by Chauncey Tomlinson) Sleep apnea Cyst of right kidney Carotid artery plaque Atherosclerosis of abdominal aorta Surgical History Hx of colonoscopy History of esophagogastroduodenoscopy (EGD) Hx of hand surgery History of shoulder surgery Family History Father Cancer Mother Arthritis Social History Household Members: None Both parents involved: No Caregiver staying overnight: No Housing: House Are you a primary critical care specialist to a significant other at home: No Do you presently have visiting nurse or other home services: No Alcohol intake: never Patient Tobacco Use Status: Never used Tobacco Tobacco use type: Cigarette e-Cigarette/Vaping Use: Never Used Special leila needs: No service: Yes Current occupational status: retired Cognitive needs: No Hearing needs: No Vision needs: Yes (Patient wears glasses.) Physical Exam Vital Signs: Last Vital Signs Temp 97.4 F 07/30/24 09:32 Pulse 79 07/30/24 09:32 Resp 13 07/30/24 09:32 BP 138/80 07/30/24 09:32 Pulse Ox 97 07/30/24 09:32 Oxygen Delivery Method Room Air 07/30/24 09:32 BMI result Body Mass Index 30.1 Assessment & Plan Assessment & Plan (1) Acute bacterial sinusitis: Code(s): J01.90 - Acute sinusitis, unspecified; B96.89 - Other specified bacterial agents as the cause of diseases classified elsewhere (2) Crohn's colitis: Code(s): K50.10 - Crohn's disease of large intestine without complications Plan . Medications: New amoxicillin-pot clavulanate 875-125 mg 1 tab PO BID 7 days 14 tabs 0RF Coding Level of Care Code Est Pt Level 4 (93427) Diagnoses Acute bacterial sinusitis J01.90; B96.89 Crohn's colitis K50.10
[2024-07-30 09:32] VITALS: BP 138/80; PULSE 79; RESP 13; TEMP 36.3; O2SAT 97; BMI 30.1
--- OUTSIDE RECORDS SUMMARY | 2024-08-04 06:57 | XMS_ITS ---
Author Name [facility] Organization Unknown History of Medication Use Medication Directions Dispensed Refills Start Date End Date Stat Cholecalciferol (VITAMIN D3) 2000 UNITS Cap capsule Vitamin D 2000 UNIT Oral Capsule 1 TAB DAILY Refills: 0 Active 02/08/2023 active Sodium Sulfate-Mag Sulfate-KCl (Sutab) 4441-276-829 MG Tab One dose of 12 tablets on the Day Prior to procedure. One dose of 12 tablets on the Day Of the procedure. 02/08/2023 aborted Sodium Sulfate-Mag Sulfate-KCl (Sutab) 1686-932-983 MG Tab Take 12 tablets by mouth once. One dose of 12 tablets on the Day Prior to procedure. One dose of 12 tablets on the Day Of the procedure. BIN: [id number] PCN: CN GROUP: [id number] ID: [id number] 02/09/2023 active tadalafil (CIALIS) 20 MG tablet 1 tablet 02/08/2023 active Zinc 50 MG Tab 1 tablet 04/25/2023 activ e PANTOprazole (PROTONIX) 40 MG EC tablet 02/08/2023 aborted Calcium Carb-Cholecalciferol 500-10 MG-MCG Tab Calcium-Vitamin D 500-400 MG-UNIT Oral Tablet 1 TAB DAILY Refills: 0 Active 02/08/2023 aborted famotidine (PEPCID) 40 MG tablet Take 1 tablet (40 mg total) by mouth nightly. 02/08/2023 active Ascorbic Acid (vitamin C) 1000 MG tablet Take 1,000 mg by mouth daily. 02/08/2023 active magnesium gluconate (MAGONATE) 500 (27 Mg) MG tablet Take 500 mg by mouth 2 (two) times a day. 02/08/2023 active mesalamine (LIALDA) 1.[address] tablet Take 4 tablets (4.8 g total) by mouth daily. 02/08/2023 active valsartan (DIOVAN) 80 MG tablet 02/08/2023 active Menaquinone-7 (K2 PO) Take by mouth. 02/08/2023 active
== END 2024-07-30 10:55 | disposition home or self-care (01) ==
PROVIDERS: PCP Family Medicine; Visit Provider Nurse Practitioner Family
DX: J01.90 Acute sinusitis, unspecified (principal); B96.89 Other specified bacterial agents as the cause of diseases classified elsewhere; K50.10 Crohn's disease of large intestine without complications

== ENCOUNTER 2024-10-07 11:52 | Outpatient (AMB) | payer OTHER, SELFPAY ==
--- NOTE | 2024-10-07 12:14 | A.OFFPC_ITS ---
Vital Signs 10/07/24 12:16 Height 5 ft 9 in Weight 208 lb 4 oz BMI 30.7 BP 116/60 Blood Pressure Location Lt brachial Position Sitting Respiration 14 Pulse 80 Pulse Source Pulse Oximeter Temp 97.7 F Temp Source Oral Pulse Oximetry (%) 95 Oxygen Delivery Method Room Air Intake Visit Reasons: testosterone replacement therapy Intake Note: pt would like to discuss testosterone therapy Allergies dog dander Allergy (Intermediate, Verified 10/07/24 12:15) Unknown ciprofloxacin [From Cipro] Allergy (Mild, Verified 10/07/24 12:15) Unknown Tobacco use date assessed: 03/08/24 Dental Screening Dental Screen Date: 03/08/24 HPI testosterone replacement therapy HPI Details 64 y/o male presents today to discuss te stosterone therapy. Has complaints of fatigue, decreased libido. No recent testosterone level to review. Does have a CPAP machine which he has gotten last year. He uses this as prescribed. Labs drawn 05/03/24. Reviewed labs with pt. Elevated fasting glucose of 109. A1c 5.5%. Triglycerides 112. TC 136. LDL 76. HDL low at 38. HPI Comments History of Present Illness Details Documentation assistance for Macario Solano MD, was provided by Chauncey Tomlinson,? Stencil Inspector on 10/07/2024 at 12:46 PM EST. I, Dr. Solano, have read, observed, and verified documentation. ?? ON LICENSE OF [facility] Medical History (Updated 10/07/24 @ 12:57 by Chauncey Tomlinson) Sleep apnea Cyst of right kidney Carotid artery plaque Atherosclerosis of abdominal aorta Surgical History Hx of colonoscopy History of esophagogastroduodenoscopy (EGD) Hx of hand surgery History of shoulder surgery Family History Father Cancer Mother Arthritis Social History Household Members: None Both parents involved: No Caregiver staying overnight: No Housing: House Are you a primary acute care certified nursing assistant to a significant other at home: No Do you presently have visiting nurse or other home services: No Alcohol intake: never Patient Tobacco Use Status: Never used Tobacco Tobacco use type: Cigarette e-Cigarette/Vaping Use: Never Used Special leila needs: No service: Yes Current occupational status: retired Cognitive needs: No Hearing needs: No Vision needs: Yes (Patient wears glasses.) Questionnaire PHQ-9 Over the last 2 weeks, how often have you been bothered by any of the following problems? 1. Little interest or pleasure in doing things: several days 4. Feeling tired or having little energy: nearly every day 5. Poor appetite or overeating: not at all 7. Trouble concentrating on things, such as reading the newspaper or watching television: nearly every day 8. Moving or speaking so slowly that other people could have noticed. Or the opposite - being so fidgety or restless that you have been moving around a lot more than usual: not at all 9. Thoughts that you would be better off or of hurting yourself in some way: not at all Source: Developed by Drs. Keyshawn Rodriguez, Ladonna Spears, Clovis Frances and colleagues, with an educational maggie from [employer] Thrive Questionnaire Date Thrive assessed: 10/04/24 I am a: Patient What is your living situation today?: I choose not to answer this question Within the past 12 months, did the food you bought not last and you didn't have the money to get more?: I choose not to answer this question Within the past 12 months, did you worry whether your food would run out before you got money to buy more?: I choose not to answer this question Do you have trouble paying for medicines?: I choose not to answer this question Do you have trouble getting transportation to medical appointments?: I choose not to answer this question Do you have trouble paying your heating and electricity bill?: I choose not to answer this question Do you have trouble taking care of your child, family member or friend?: I choose not to answer this question Do you have trouble with day-to-day activities such as bathing, preparing meals, shopping, managing finances, etc.?: I choose not to answer this question Are you currently unemployed and looking for a job?: I choose not to answer this question Are you interested in more education?: I choose not to answer this question Please select the resources that you would like help with: None Currently or been in a relationship where the following occur: I choose not to answer THRIVE Score: 0 AUDIT C Alcohol Use Questionnaire (AUDIT-C) 1. How often do you have a drink containing alcohol?: Never Total Score: 0 TEGAN-7 AMB Questionnaire TEGAN-7 Date TEGAN - 7 assessed: 05/20/24 Feeling nervous, anxious, or on edge: 0 = Not at all Not being able to stop or control worryin = Not at all Worrying too much about different things: 0 = Not at all Trouble relaxin = Not at all Being so restless that it is hard to sit still: 0 = Not at all Becoming easily annoyed or irritable: 0 = Not at all Feeling afraid as if something awful might happen: 0 = Not at all Total TEGAN-7 score (0-4 normal; 5-9 mild; 10-14 moderate; 15-21 severe): 0 Source: Developed by Drs. Keyshawn Rodriguez, Ladonna Spears, Clovis Frances and colleagues, with an educational maggie from [employer] Review of Systems Const Denies chills, Reports fatigue, Denies fever(s), Denies headache(s) and Denies weakness ENT Denies dizziness and Denies headache(s) Card Denies dyspnea Resp Denies cough, Denies dyspnea, Denies wheezing and Denies other (shortness of breath) Musc Denies numbness and Denies tingling Neuro Denies dizziness, Denies headache(s), Denies numbness, Denies tingling and Denies weakness Psych Denies anxiety and Denies depression Endo Reports fatigue Aller/Immun Denies wheezing Physical exam (Primary Care) Vital Signs: Last Vital Signs Temp 97.7 F 10/07/24 12:16 Pulse 80 10/07/24 12:16 Resp 14 10/07/24 12:16 BP 116/60 10/07/24 12:16 Pulse Ox 95 10/07/24 12:16 Oxygen Delivery Method Room Air 10/07/24 12:16 BMI result Body Mass Index 30.7 Tobacco/Smoking Status: Tobacco use Status Tobacco use date assessed 03/08/24 10/07/24 12:20 Patient Tobacco Use Status Never used Tobacco 10/07/24 12:20 Tobacco use type Cigarette 10/07/24 12:20 e-Cigarette/Vaping Use Never Used 02/13/25 12:20 Thrive Assessment: Date of Thrive Assessment Date Thrive assessed 10/04/24 10/07/24 12:20 Currently or been in a relationship where the following occur: I choose not to answer Const General: well developed; No acute distress Nutritional Appearance: well nourished Orientation/consciousness: patient oriented x3 [facility] Head: Yes normocephalic and Yes atraumatic Eyes General: appearance normal, both eyes and all related structures Pupils: Equal, round and reactive pupils present EOM: EOMs intact bilaterally Resp Effort & Inspection: normal respiratory effort Neuro General: patient oriented x3 and gait normal Cranial nerves: Yes Equal, round and reactive pupils present Psych Affect: normal affect Coding Level of Care Code Est Pt Level 4 (89392) Diagnoses Fatigue R53.83 Elevated fasting glucose R73.01 Low HDL (under 40) E78.6 Assessment & Plan Assessment & Plan (1) Fatigue: Code(s): R53.83 - Other fatigue Category: Medical Plan: Patient?has?fatigue, decreased?libido, changes?in?memory?and?concentration. Recently started?CPAP?less?than?a?year?ago?and?is?using?prescribed Unclear?cause Will?check?testosterone?levels,?thyroid,?complete?blood?count,?CMP?as?well?as?in flammatory?markers?and?autoimmune?markers;?patient?has?a?history?of?Crohn's?whi ch?can?be?associated?with?other?inflammatory/autoimmune?disorders?or?could?be?an ?underlying?cause?itself. Will?follow-up?on?lab?work?in?a?month (2) Elevated fasting glucose: Code(s): R73.01 - Impaired fasting glucose Category: Medical Plan: Mildly ?elevated?fasting?blood?sugars/insulin?resistance.??A1c?was?at?top?normal?range Encouraged?a?diet?lower?in?sugars?and?starches.??Will?monitor (3) Low HDL (under 40): Code(s): E78.6 - Lipoprotein deficiency Category: Medical Plan: Encouraged?ongoing?exercise?and?increase?in?[place]?3?fatty?acids?in?diet Orders: Orders Free T4 (Free Thyroxine) Today E03.9 - Hypothyroidism, unspecified, R53.83 - Other fatigue Erythrocyte Sedimentation Rate Today R53.83 - Other fatigue CRP High Sensitivity Today R53.83 - Other fatigue JACLYN Reflex Titer and Pattern Today R53.83 - Other fatigue Rheumatoid Factor Today R53.83 - Other fatigue Testosterone, Free/Total Today R53.83 - Other fatigue, Z00.00 - Encounter for general adult medical examination without abnormal findings Comprehensive [place]. Panel Fast Today R53.83 - Other fatigue, Z00.00 - Encounter for general adult medical examination without abnormal findings Hemoglobin A1c Today R53.83 - Other fatigue, R73.01 - Impaired fasting glucose Thyroid Stimulating Hormone Today E03.9 - Hypothyroidism, unspecified, R53.83 - Other fatigue Triiodothyronine T3 Total Today E03.9 - Hypothyroidism, unspecified, R53.83 - Other fatigue UA and rflx microscopic Today R53.83 - Other fatigue, Z00.00 - Encounter for general adult medical examination without abnormal findings Complete Blood Count Auto Diff Today R53.83 - Other fatigue, Z00.00 - Encounter for general adult medical examination without abnormal findings Lyme IgG/IgM w/reflex to WB Today R53.83 - Other fatigue
[2024-10-07 12:16] VITALS: BP 116/60; PULSE 80; RESP 14; TEMP 36.5; O2SAT 95; BMI 30.7
--- OUTSIDE RECORDS SUMMARY | 2024-10-07 12:18 | XMS_ITS | Clinical Summary ---
Author Organization [facility] Address [address] [place] [address] Care Team Providers Care Community Worker Name Role Phone Regi Kelley Primary Care Provider [phone] Allergies Active Allergy Reactions Criticality Noted Date Comments Ciprofibrate Diarrhea 12/04/2020 Medications calcium carbonate-vitam in D3 500 mg-400 units tablet Calcium-Milka min D 500-400 MG-UNIT Oral Tablet 1 TAB DAILY Refills: 0 Active Active cholecalciferol (VITAMIN D3) 2,000 unit capsule Vitamin D 2000 UNIT Oral Capsule 1 TAB DAILY Refills: 0 Active Active mesalamine (Lialda) 1.2 gram EC tablet Lialda 1.2 GM Oral Tablet Delayed Release TAKE 4 TABLETS ONCE DAILY WITH THE EVENING MEAL. Quantity: 360; Refills: 1 LEXUS BOLANOS MD; Started 22-Oct-2012 Active 10/22/2012 Active Active Problems Problem Noted Date Diagnosed Date Right groin pain 12/28/2013 Obstructive sleep apnea 12/28/2013 Neck arthritis 12/28/2013 Joint pain, hip 11/17/2013 Crohn's disease of colon 08/26/2012 Immunizations Immunization Administration Dates Next Due Tuberculin Skin Test; Purifi ed Protein Derivative Solution, Intradermal 09/30/2012 Family History Medical History Relation Name Comments Other Father Family History of neoplasm of brain Other Mother Family History of arthritis Other Other Family history of Malignant Neoplasm Of The Prostate Gland Other Sister Family History of Crohn's disease Relation Name Status Comments Father Mother Other Sister Social History Tobacco Use Types Packs/Day Years Used Date Smoking Tobacco: Never Comments:: Sex and Gender Information Value Date Recorded Sex Assigned at Male 02/17/2024 11:52 AM EDT Legal Sex Male 3:11 AM EDT Gender Identity Male 02/17/2024 11:52 AM EDT Sexual Orientation Not on file Last Filed Vital Signs Vital Sign Reading Time Taken Comments Blood Pressure 174/103 12/04/2020 1:51 PM EDT Pulse 80 12/04/2020 1:51 PM EDT Temperature 36.2 ??C (97.2 ??F) 12/04/2020 1:51 PM ED T Respiratory Rate 18 12/04/2020 1:51 PM EDT Oxygen Saturation 98% 10/06/2013 1:21 PM EST Inhaled Oxygen Concentration - - Weight 95.3 kg (210 lb) 12/04/2020 1:51 PM EDT Height 175.3 cm (5' 9 ) 12/30/2014 1:17 PM EDT Body Mass Index 31.01 12/30/2014 1:17 PM EDT Plan of Treatment Health Maintenance Due Date Last Done Comments HIV Screening 1960 DTaP,Tdap,and Td Vaccines (1 - Tdap) 1984 Colonoscopy 05/22/2019 05/22/2017, 06/11/2014, 04/14/2013, Additional history exists Zoster Vaccines (2 of 2) 10/11/2020 08/16/2020 COVID-19 Vaccine (1 - 2023- season) 2024 Influenza Vaccine (#1) 2024 07/19/2020 Alcohol/Substance Use Screening 08/25/2024 RSV Vaccine (60+ years old and patients) (1 - 1-dose 75+ series) 2037 Hepatitis B Vaccines Aged Out No long er eligible based on patient's age to complete this topic Pneumococcal Vaccine: Pediatric (0-5 Years) and At-Risk Patients (6-50 Years) Aged Out No longer eligible based on patient's age to complete this topic Procedures * Due to [place] [employer] law, this organization might not be sharing negative HIV tests. Procedure Name Priority Date/Time Associated Diagnosis Comments COLONOSCOPY 05/22/2017 8:30 AM EDT from Last 3 Months or Most Recently Relevant to Health Maintenance Results * Due to [place] [employer] law, this organization might not be sharing negative HIV tests. * COLONOSCOPY (05/22/2017 8:30 AM EDT) Narrative Procedure Note Lexus Bolanos MD - 05/22/2017 8:30 AM EDT [facility] Patient Name: Solis Thayer Procedure Date: 05/22/2017 8:30 AM Date of : 1960 Admit Type: Outpatient Age: 57 Room: Procedure Room 2 Gender: Male Note Status: Finalized Attending MD: Lexus Bolanos MD Procedure: Colonoscopy Indications: High risk colon cancer surveillance: Crohn's disease largeintestine Providers: Lexus Bolanos MD Referring MD: Jeovanny Fox MD (Referring MD) Requesting Provider: Medicines: Monitored Anesthesia Care Complications: No immediate complications. Procedure: After I obtained informed consent, the scope was passed under direct vision. Throughout the procedure, the patient's blood pressure, pulse, and oxygen saturations were monitored continuously. The Colonoscope was introduced through the anus and advanced to theterminal ileum, with identification of the appendiceal orificeand IC valve. The bowel preparation used was Miralax. The colonoscopy was performed without difficulty. Thepatient tolerated the procedure well. The quality of the bowel preparation was excellent. Findings: The perianal and digital rectal examinations were normal. The terminal ileum appeared normal. Inflammation characterized by erosions, erythema and friability was found in a continuous and circumferential pattern in the ascending colon. This was mild in severity. Biopsies were taken with a cold forceps for histology. Surveillance biopsies obtained in sigmoid aswell. A 2 mm polyp was found in the transverse colon. The polyp wassessile. The polyp was removed with a cold biopsy forceps. Resection and retrieval were complete. The exam was otherwise without abnormality on direct and retroflexion views. Impression: - The examined portion of the ileum was normal. - Active mild inflammation was found segmentally in the ascending colon secondary to Crohn's disease withcolonic involvement. Biopsied. Surveillance biopsies alsoobtained in sigmoid colon. - One 2 mm polyp in the transverse colon. Resected and retrieved. - The examination was otherwise normal on direct and retroflexion views. Recommendation: - Await pathology results. - Check bloodwork to include CBC, ferritin. - Discuss consideration of maintenance medication. Lexus Bolanos MD 05/22/2017 9:18:19 AM This report has been signed electronically. Number of Addenda: 0 Note Initiated On: 05/22/2017 8:30 AM Estimated Blood Loss: Estimated blood loss was minimal. Lexus Bolanos MD PROVATION PROCEDURES Final Result from Last 3 Months or Most Recently Relevant to Health Maintenance Insurance [facility] Advance Directives Documents on File Type Date Recorded Patient Index Editor Expl anation Advance Directive 05/17/2014 12:00 AM Adva nce Care Directives Advance Directive 03/10/2012 12:00 AM cherie sales Dec Making (Adv.Dir) Care Teams Community Worker Relationship Specialty Start Date End Date Regi Kelley [address] [place] [id number] PCP - General 07/26/20
--- OUTSIDE RECORDS SUMMARY | 2024-10-07 12:18 | XMS_ITS ---
Author Organization [facility] Address [address] [place] [address] Care Team Providers Care Furnace Builder Name Role Phone JAY BENEDICT Primary Care Provider [phone] REASON FOR VISIT Billing Ques Encounters Encounter Location Date Provider Diagnosis [facility] [address] [place] [address] 05/12/2024 JAY BENEDICT PLAN OF TREATMENT No Information Progress Notes * EFE FINLEY WDOB: 2 (64 yo M)Acc No.[id number]:05/12/2024 Patient:??EFE FINLEY :1960?Age:64 Y?Sex:Haylee wren Address:[address] [place] [phone] * true * Date:??
--- OUTSIDE RECORDS SUMMARY | 2024-10-07 12:18 | XMS_ITS | Referral Summary ---
Author Organization [facility] Address [address] [place] [address] Care Team Providers Care Device Sales Consultant Name Role Phone Regi Kelley Primary Care Provider [phone] Allergies Active Allergy Reactions Criticality Noted Date [...] Purifi ed Protein Derivative Solution, Intradermal 09/30/2012 Social History Tobacco Use Types Packs/Day Years [...] 12/30/2014 1:17 PM EDT Plan of Treatment Not on file Procedures * Due to [place] [employer] law, this organization might not be sharing negative HIV tests. Procedure Name Priority Date/Time Associated Diagnosis Comments COLONOSCOPY 05/22/2017 8:30 AM EDT from Last 3 Months or Most Recently Relevant to Health Maintenance Results * Due to [place] [employer] law, this organization might not be sharing [...] Most Recently Relevant to Health Maintenance Insurance [facility] Advance Directives Documents on File Type Date Recorded Patient Lab Technician Expl anation Advance Directive 05/17/2014 12:00 AM Adva nce Care Directives Advance Directive 03/10/2012 12:00 AM cherie sales Dec Aramis (Adv.Dir) Care Teams Device Sales Consultant Relationship Specialty Start Date End Date KelleyJaden oneillsara [address] [place] [id number] PCP - General 07/26/20
--- OUTSIDE RECORDS SUMMARY | 2024-10-07 12:18 | XMS_ITS ---
Author Organization [facility] Address [address] [place] [address] Care Team Providers Care Supervisor Rod Placing Name Role Phone JAY BENEDICT Primary Care Provider REASON FOR VISIT Med Recs Encounters Encounter Location Date Provider Diagnosis [facility] [address] [place] [address] 05/12/2024 JAY BENEDICT PLAN OF TREATMENT No Information Progress Notes * EFE FINLEY WDOB: 2 (64 yo M)Acc No.[id number]:05/12/2024 Patient:??EFE FINLEY :1960?Age:64 Y?Sex:Haylee wren Address:[address] [place] [id number] * true * Date:??
--- OUTSIDE RECORDS SUMMARY | 2024-10-07 12:18 | XMS_ITS ---
Author Organization [facility] Address [address] [place] [address] Care Team Providers Care Professor Of French Name Role Phone JAY KELLEY Primary Care Provider Encounters Encounter Location Date Provider Diagnosis [address] [facility] [address] [place] [address] 03/16/2024 JAY KELLEY PLAN OF TREATMENT No Information Progress Notes * EFE FINLEY WDOB: 2 (64 yo M)Acc No.[id number]:03/16/2024 CPE Patient:??EFE FINLEY Provider:??Jay Kelley MD :1960?Age:64 Y?Sex:Haylee wren Date:03/16/2024 Address:[address] [place], [place] [id number] Subjective: * Chief Complaints: * ? * Medical History:?? Objective: Assessment: Plan: * Treatment: * Images: Billing Information: * Visit Code:?? * Procedure Codes:?? Care Plan Details* * Sign off status: Pending * Provider:??Jay Kelley MD Date:??03/16
--- OUTSIDE RECORDS SUMMARY | 2024-10-07 12:18 | XMS_ITS | Encounter Summary ---
Author Organization [facility] Address [address] [place] [address] Care Team Providers Care Serials Librarian Name Role Phone Regi Kelley MD Primary Care Provider [phone] Encounter Details Date Type Department Care Team (Late st Contact Info) Description 03/26/2023 Scanned Document [facility] [address] [place] [phone] Lebron Watkins MD [address] [place] [address] Social History Tobacco Use Types Packs/Day Years Used Date Smoking Tobacco: Never Smokeless Tobacco: Never Alcohol Use Standard Drinks/Week Comments Never 0 (1 standard drink = 0.6 oz pur e alcohol) Sex and Gender Information Value Date Recorded Sex Assigned at Male 11/04/2022 9:57 AM EDT Gender Identity Male 11/04/2022 9:57 AM EDT Sexual Orientation Homosexual (lesbian or manzano) 0 11/04/2022 9:57 AM EDT documented as of this encounter Plan of Treatment Not on file documented as of this encounter Procedures Procedure Name Priority Date/Time Associated Diagnosis Comments PATHOLOGY REPORT 03/26/2023 1:03 PM EDT documented in this encounter Results * PATHOLOGY REPORT (03/26/2023 1:03 PM EDT) Lebron Watkins MD PATHOLOGY/CYTOLOGY O RDERABLES documented in this encounter Visit Diagnoses Not on filedocumented in this encounter Care Teams Serials Librarian Relationship Specialty Start Date End Date Regi Kelley MD [address] [place] [address] PCP - General Internal Medicine 06/04/21 documented as of this encounter
--- OUTSIDE RECORDS SUMMARY | 2024-10-07 12:18 | XMS_ITS | Clinical Summary ---
Author Organization [facility] Address [address] [place] [address] Care Team Providers Care Seed Cleaner Operator Name Role Phone Unavailable Primary Care Provider Unavailabl e Allergies Active Allergy Reactions Criticality Noted Date Comments Ciprofloxacin Other (See Comments) 09/13/2022 Medications Medication Sig Dispensed Refills Start Date End Date Status valsartan (DIOVAN) tablet 80 mg Take 1 tablet (80 mg total) by mouth daily. 0 12/25/2021 Active pantoprazole (PROTONIX) 40 MG tablet 1 tablet 0 03/07/2022 Active Cholecalciferol (VITAMIN D3 PO) Take 4,800 Units by mouth. 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 023 Hiatal hernia 09/04/2022 Obstructive sleep apnea syndrome 12/28/2013 Family History Medical History Relation Name Comments Brain cancer Father Colon polyps Father Crohn's disease Sister Colon cancer Neg Hx Relation Name Status Comments Father Sister Social History Tobacco Use Types Packs/Day Years Used Date Smoking Tobacco: Never Smokeless Tobacco: Never Tobacco Cessation:Counseling Given: Not Answered Alcohol Use Standard Drinks/Week Comments Not Currently 0 (1 standard drink = 0.6 oz pur e alcohol) Sex and Gender Information Value Date Recorded Sex Assigned at Not on file Gender Identity Not on file Sexual Orientation Not on file Last Filed Vital Signs Vital Sign Reading Time Taken Comments Blood Pressure 120/70 09/27/2022 11:10 AM EST Pulse 79 09/27/2022 11:10 AM EST Temperature 36.2 ??C (97.1 ??F) 09/27/2022 11:[address] Respiratory Rate - - Oxygen Saturation 97% 09/27/2022 11:10 AM EST Inhaled Oxygen Concentration - - Weight 87.1 kg (192 lb) 09/27/2022 11:10 AM EST Height 175.3 cm (5' 9 ) 09/27/2022 11:10 AM EST Body Mass Index 28.35 09/27/2022 11:10 AM EST Plan of Treatment Health Maintenance Due Date Last Done Comments Hepatitis C Screening 1960 COVID-19 Vaccine (#1) 1962 Depression Screening 1974 BMI Counseling 1980 Preventative Health Evaluation 1980 DTap / Tdap / Td (1 - Tdap) 1981 Colon Cancer Screening (Colonoscopy) 2007 Shingrix-Zoster Vaccine (1 of 2) 2012 Influenza Vaccine (#1) 2024 RSV Adult > 60+ Yrs or Pregn ant (1 - 1-dose 75+ series) 2037 Hepatitis B Vaccines Aged Out No long er eligible based on patient's age to complete this topic Pneumococcal Vaccine Aged Out No long er eligible based on patient's age to complete this topic RSV Ped < 20 months Aged Out No longe r eligible based on patient's age to complete this topic Solis Thayer Personal/Family Self 1960 [address] [facility] [place] [address]
--- OUTSIDE RECORDS SUMMARY | 2024-10-07 12:18 | XMS_ITS | Patient Health Record ---
Author Organization [facility] Address [address] [place] [address] Care Team Providers Care Manager Program Name Role Phone JAY BENEDICT Primary Care Provider ALLERGIES Allergen (clinical drug ingredient) Drug/Non Drug Allergy documented on EMR Reaction Allergy Type Onset Date Status ciprofloxacin Cipro Unknown Drug Allergy Act ariel REASON FOR REFERRAL Reason [place] [facility] Diagnosis 1 Crohn's disease, uns pecified, without complications (K50.90) Referral Organization [facility] Referring Provider First Name JAY Referring Provider Last Name MARICHUY Referring Provider Speciality Internal M edicine Referred Provider Specialty Gastroentero logy General Notes referral faxed to lauro lloyd , phone [phone], fax [phone], [address] [place] [address] [place] [address] Clinical Notes Valdo Steele 024 11:55:05 AM >, Valdo Steele 12/09/2023 11:56:39 AM > pt was seen 3/6 Referral Priority Routine MEDICATIONS Medication SIG (Take, Route, Frequency, Duration) Notes Start Date End Date Status predniSONE 10 MG 1 tablet Orally Once a day for 30 days 09/27/2023 Active Budesonide 0.5 MG/2ML 1 spray in each no stril Inhalation Once a day for 30 days 07/31/2023 Active Ambien 5 MG 1 tablet at bedtime as needed Orally Once a day for 30 days 07/31/2023 Active Zinc 50 MG 1 tablet Orally Once a day Active Magnesium Gluconate Active Vitamin D (Ergocalciferol) 2000 UNIT as directed Orally Active Vitamin C 1000 MG 1 tablet Orally Once a day Active Betamethasone Valerate 0.1 % 1 application To affected area Externally Twice a day for 30 days 08/01/2023 Active Valsartan 80 MG TAKE 1 TABLET DAILY for 90 Active IMMUNIZATIONS Vaccine Route Administration Date Status Comme nts Zoster IM Intramuscular 11/30/2020 Administered SOCIAL HISTORY Tobacco Use: Social History Observation Description Date Details (start date - stop date) Never Smoker NA - NA Sex Assigned At : Social History Observation Description Sex Assigned At Unknown Tobacco Use/Smoking Question Answer Notes Are you a nonsmoker PROBLEMS Problem Type ICD Code Onset Dates Problem Status W/U Status Risk SNOMED Code Notes Problem 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 Hemoglobinopath y (86517648) Problem Vitamin D deficiency, unspecified (E55.9) Active confirmed Vitamin D deficiency (11425436) Problem Insomnia, unspecified (G47.00) Active confirmed Insomni a (837212753) Problem Chronic rhinitis (J31.0) Active confirmed Chronic rhiniti s (73514781) Problem Chronic sinusitis, unspecified (J32.9) Active confirmed Chronic sinusitis (49503250) Problem Crohn's disease, unspecified, without complications (K50.90) Active confirmed Crohn's disease (73352629) Problem Encounter for general adult medical examination without abnormal findings (Z00.00) Active confirmed 965910565 Problem Encounter for screening for lipoid disorders (Z13.220) Active confirmed 228692698 Problem Prediabetes (R73.03) Active confirmed 7 52721446 Problem Essential hypertension (I10) Active confirmed 45560378 Problem Hyperlipidemia, unspecified hyperlipidemia type (E78.5) Active confirmed 96248885 Problem Anxiety (F41.9) Active confirmed Anxiet y (22028983) Problem Hypothyroidism, unspecified type (E03.9) Active confirmed 86666832 Problem Arthritis (M19.90) Active confirmed Art hritis (3119384) Problem Hypogonadism in male (E29.1) Active confirmed Male hypogonadi sm (87592811) Problem ROEL (obstructive sleep apnea) (G47.33) Active confirmed 92964614 Problem Hypertension, unspecified type (I10) Active confirmed 78303995 Problem Gastroesophageal reflux disease, unspecified whether esophagitis present (K21.9) Active confirmed 875579358 Problem Prostate cancer screening (Z12.5) Active confirmed Screening for malignant neoplasm of prostate (396195907) Problem Atherosclerosis (I70.90) Active confirmed Atherosclerosis (69130101) Problem Pre-syncope (R55) Active confirmed 4274 65717 Problem Memory change (R41.3) Active confirmed 826486725 Problem Rhinosinusitis (J32.9) Active confirmed 058003655 Encounters Encounter Location Date Provider Diagnosis [address] [place] [address] 03/16/2024 JOSE GUADALUPEELLY BENEDICT [address] [place] [address] 03/08/[address] [place] [address] 03/11/2024 TALELLY BENEDICT [facility] [address] [place] [address] [facility] [address] [place] [address] 05/12/2024 JOSE GUADALUPEELLY BENEDICT [address] [place] [address] 10/09/2023 JOSE GUADALUPEELLY BENEDICT PLAN OF TREATMENT Pending Test Test Name Order Date Echocardiogram 07/04/2021 GGT 09/19/2023 JACLYN w/Reflex 09/19/2023 PSA Total+ Free 01/26/2020 ESR 09/19/2023 Testosterone, total 01/26/2020 MRI : Brain +/- 05/30/2022 25OH VITAMIN D 09/19/2023 25OH VITAMIN D 11/20/2021 ACETYLCHOLINE RECEPTOR MODULATING ANTIBO DIES 09/19/2023 CBC (COMPLETE BLOOD COUNT) 08/04/2018 CBC (COMPLETE BLOOD COUNT) 11/20/2021 CBC (COMPLETE BLOOD COUNT) 07/18/2020 COMPREHENSIVE METABOLIC PANEL 07/18/2020 COMPREHENSIVE METABOLIC PANEL 11/20/2021 COMPREHENSIVE METABOLIC PANEL 09/19/2023 COMPREHENSIVE METABOLIC PANEL 08/04/2018 CRP, HIGH SENSITIVITY 09/19/2023 FERRITIN 09/19/2023 HEMOGLOBIN A1C 09/19/2023 HEMOGLOBIN A1C 11/20/2021 HEMOGLOBIN A1C 08/04/2018 LIPID PANEL 08/04/2018 LIPID PANEL 09/19/2023 LIPID PANEL 07/18/2020 LIPID PANEL 11/20/2021 MAGNESIUM 09/19/2023 PSA, SCREEN 09/19/2023 PSA, SCREEN 11/20/2021 TSH 11/20/2021 TSH 09/19/2023 URINALYSIS W/REFLEX CULTURE 09/19/2023 URINALYSIS, COMPLETE 08/04/2018 URINALYSIS, COMPLETE 07/18/2020 Insulin Level 09/19/2023 DHEA (Dehydroepiandrosterone) 09/19/2023 C-Peptide 09/19/2023 CBC with Differential 09/19/2023 XR Chest 2 Views 01/15/2022 LIPID PANEL, STANDARD 02/17/2023 LIPID PANEL, STANDARD 05/30/2022 COMPREHENSIVE METABOLIC PANEL 02/17/2023 CBC (INCLUDES DIFF/PLT) 02/17/2023 URINALYSIS, COMPLETE 02/17/2023 VITAMIN B12 05/30/2022 VITAMIN D,25-OH,TOTAL,IA 05/30/2022 COMPLETE URINALYSIS 12/04/2022 COMPLETE URINALYSIS 11/20/2021 SARS CoV 2 RNA(COVID 19), QUALITATIVE NA AT 05/23/2021 Insurance Providers Payer Name Payer Address Payer Phone Subscriber Number Group Number Insured Name Patient Relationship to Insured Coverage Start Date Coverage End Date [facility] Indemnity Plan Formerly [facility] [address] [place] [address] [id number] EFE FINLEY Self - patient is the insured MEDICAL (GENERAL) HISTORY Medical History History ICD Code Crohns SI Kidney stones (uric acid) Surgical History Surgery Date(Month/Year) deviated septum repair lasik bilateral shoulder ac joint repair bilateral hands tendon repair right hip tonsillectomy
--- OUTSIDE RECORDS SUMMARY | 2024-10-07 12:18 | XMS_ITS | Clinical Summary ---
Author Organization [facility] Address [address] [place] [address] Care Team Providers Care Cable Television Access Coordinator Name Role Phone Regi Kelley MD Primary Care Provider [phone] Allergies Active Allergy Reactions Criticality Noted Date Comments Ciprofibrate Diarrhea Low 12/04/2020 Ciprofloxacin GI Intolerance/Nausea/Vomiting,Unknown/Pa tient and Family Unable to Define Medium 09/13/2022 Nsaids Unknown/Patient and Family Unable to Define Medium 02/06/2023 Medications Medication Sig Dispensed Refills Start Date End Date Status Cholecalciferol (VITAMIN D3) 2000 UNITS Cap capsule Vitamin D 2000 UNIT Oral Capsule 1 TAB DAILY Refills: 0 Active Active valsartan (DIOVAN) 80 MG tablet 12/03/2022 Active Zinc 50 MG Tab 1 tablet Active tadalafil (CIALIS) 20 MG tablet 1 tablet 05/30/2022 Active magnesium gluconate (MAGONATE) 500 (27 Mg) MG tablet Take 500 mg by mouth 2 (two) times a day. Active Menaquinone-7 (K2 PO) Take by mouth. Active Ascorbic Acid (vitamin C) 1000 MG tablet Take 1,000 mg by mouth daily. Active famotidine (PEPCID) 40 MG tabletIndications:B arrett's esophagus without dysplasia Take 1 tablet (40 mg total) by mouth nightly. 90 tablet 1 02/06/2023 Active Sodium Sulfate-Mag Sulfate-KCl (Sutab) 7103-336-216 MG TabIndications:Croh n's disease of large intestine without complication (HCC) Take 12 tablets by mouth once. One dose of 12 tablets on the Day Prior to procedure. One dose of 12 tablets on the Day Of the procedure. BIN: [id number] PCN: CN GROUP: [id number] ID: [id number] 24 tablet 02/07/2023 Active mesalamine (LIALDA) 1.2 g tabletIndications:C rohn's disease of large intestine without complication (HCC) Take 4 tablets (4.8 g total) by mouth daily. 120 tablet 3 04/23/2023 Active Active Problems Problem Noted Date Diagnosed Date Crohn's disease of large intestine without compl ication 02/06/2023 Social History Tobacco Use Types Packs/Day Years Used Date Smoking Tobacco: Never Smokeless Tobacco: Never Tobacco Cessation:Counseling Given: Not Answered Alcohol Use Standard Drinks/Week Comments Never 0 (1 standard drink = 0.6 oz pur e alcohol) Sex and Gender Information Value Date Recorded Sex Assigned at Male 11/04/2022 9:57 AM EDT Gender Identity Male 11/04/2022 9:57 AM EDT Sexual Orientation Homosexual (lesbian or manzano) 0 11/04/2022 9:57 AM EDT Last Filed Vital Signs Vital Sign Reading Time Taken Comments Blood Pressure 130/80 02/06/2023 10:39 AM EDT Pulse 72 02/06/2023 10:39 AM EDT Temperature 36.3 ??C (97.3 ??F) 02/06/2023 10:39 AM E DT Respiratory Rate - - Oxygen Saturation - - Inhaled Oxygen Concentration - - Weight 86.2 kg (190 lb) 02/06/2023 10:39 AM EDT Height 175.3 cm (5' 9 ) 02/06/2023 10:39 AM EDT Body Mass Index 28.06 02/06/2023 10:39 AM EDT Plan of Treatment Health Maintenance Due Date Last Done Comments Hepatitis C Virus Screening 1960 HIV Screening 1975 DTaP/Tdap/Td Vaccines (1 - Tdap) 1981 Pneumococcal Vaccines 50+ (1 of 1 - PCV) 2012 Zoster (Shingles) Vaccine (1 of 2) 2012 Influenza Vaccine 03/25/2024 COVID-19 Vaccine (1 - 2023-2 5 season) 2024 Colonoscopy 03/25/2033 03/25/2023 RSV Vaccine 60 years and old er and Patients (1 - 1-dose 75+ series) 2037 Hepatitis B Vaccines Aged Out No long er eligible based on patient's age to complete this topic Pneumococcal Vaccine: Pediat brianna (0-5 Years) and At-Risk Patients (6 to 49 Years) Aged Out No longer eligible b ased on patient's age to complete this topic Care Teams Cable Television Access Coordinator Relationship Specialty Start Date End Date Regi Kelley MD [address] [place] [address] PCP - General Internal Medicine 06/04/21
--- OUTSIDE RECORDS SUMMARY | 2024-10-07 12:18 | XMS_ITS | Clinical Summary ---
Author Organization [facility] Address [address] [place] [address] Care Team Providers Care Hydroelectric Plant Operator Name Role Phone Regi Kelley MD Primary Care Provider [phone] Social History Tobacco Use Types Packs/Day Years Used Date Smoking Tobacco: Never Smokeless Tobacco: Never Alcohol Use Standard Drinks/Week Comments Never 0 (1 standard drink = 0.6 oz pur e alcohol) Sex and Gender Information Value Date Recorded Sex Assigned at Not on file Legal Sex Male 5:06 PM EST Gender Identity Not on file Sexual Orientation Not on file Obstetrics History Last Filed Vital Signs Vital Sign Reading Time Taken Comments Blood Pressure 120/70 09/27/2022 11:10 AM EST Sitting Left arm Pulse 79 09/27/2022 11:10 AM EST Temperature - - Respiratory Rate - - Oxygen Saturation - - Inhaled Oxygen Concentration - - Weight 83.9 kg (185 lb) 10/25/2022 2:26 PM EST Height 175.3 cm (5' 9 ) 10/25/2022 2:26 PM EST Body Mass Index 27.32 10/25/2022 2:26 PM EST Plan of Treatment Health Maintenance Due Date Last Done Comments DTaP,Tdap,and Td Vaccines (1 - Tdap) 1981 Zoster Vaccines (1 of 2) 2012 Cholesterol Screening (Lipid Panel) 07/24/2022 Colorectal Cancer Screening: Colonoscopy 07/24/2022 Depression Screening 07/24/2022 HIV Screening 07/24/2022 Hepatitis C Screening 07/24/2022 Social Influencers of Health Screening 07/24/2022 Hypertension/CHF/CAD Annual BMP Blood Test 10/11/2023 COVID-19 Vaccine ( - 2023-2 5 season) 2024 Influenza Vaccine (#1) 2024 RSV Immunization Patients 60 + Years Old (1 - 1-dose 75+ series) 2037 HIB Vaccines Aged Out No longer eligi ble based on patient's age to complete this topic HPV Vaccines Aged Out No longer eligi ble based on patient's age to complete this topic Hepatitis A Vaccines Aged Out No long er eligible based on patient's age to complete this topic Hepatitis B Vaccines Aged Out No long er eligible based on patient's age to complete this topic IPV Vaccines Aged Out No longer eligi ble based on patient's age to complete this topic MMR Vaccines Aged Out No longer eligi ble based on patient's age to complete this topic Meningococcal ACWY Vaccine Aged Out N o longer eligible based on patient's age to complete this topic Pneumococcal Vaccine: Pediat rics (0 to 5 Years) and At-Risk Patients (6 to 64 Years) Aged Out No longer eligible b ased on patient's age to complete this topic RSV Immunization Patients Un jose guadalupe 20 months Aged Out No longer eligible b ased on patient's age to complete this topic Varicella Vaccines Aged Out No longer eligible based on patient's age to complete this topic Care Teams Hydroelectric Plant Operator Relationship Specialty Start Date End Date Regi Kelley MD PCP - General Internal Medicine 07/09/21
== END 2024-10-07 13:02 | disposition home or self-care (01) ==
PROVIDERS: PCP Family Medicine; Visit Provider Family Medicine
DX: R53.83 Other fatigue (principal); R73.01 Impaired fasting glucose; E78.6 Lipoprotein deficiency

== ENCOUNTER 2024-10-08 06:32 | Outpatient (REF) | payer OTHER, SELFPAY ==
--- OUTSIDE RECORDS SUMMARY | 2024-10-08 06:34 | XMS_ITS | Clinical Summary ---
Author Organization [facility] Address [address] [place] [address] Care Team Providers Care Patient Relations Coordinator Name Role Phone Regi Kelley MD Primary Care Provider Allergies Active Allergy Reactions Criticality Noted Date [...] 1 02/06/2023 Active Sodium Sulfate-Mag Sulfate-KCl (Sutab) 7010-831-267 MG TabIndications:Croh n's disease of large intestine without complication (HCC) Take 12 tablets by mouth once. One dose of 12 tablets on the Day Prior to procedure. One dose of 12 tablets on the Day Of the procedure. BIN: [id number] PCN: CN GROUP: [id number] ID: [id number] 24 tablet 02/07/2023 Active mesalamine (LIALDA) 1.2 [...] age to complete this topic Care Teams Patient Relations Coordinator Relationship Specialty Start Date End Date Regi Kelley MD [address] [place] [address] PCP - General Internal Medicine 06/04/21
--- OUTSIDE RECORDS SUMMARY | 2024-10-08 06:34 | XMS_ITS ---
Author Organization [facility] Address [address] [place] [address] Care Team Providers Care Commercial Green Retrofit Architect Name Role Phone JAY BENEDICT Primary Care Provider REASON FOR VISIT Med Recs Encounters Encounter Location Date Provider Diagnosis [facility] [address] [place] [address] 05/12/2024 JAY BENEDICT PLAN OF TREATMENT No Information Progress Notes * EFE FINLEY WDOB: 2 (64 yo M)Acc No.[id number]:05/12/2024 Patient:??EFE FINLEY :1960?Age:64 Y?Sex:Haylee wren Address:[address] [place] [address] * true * Date:??
--- OUTSIDE RECORDS SUMMARY | 2024-10-08 06:34 | XMS_ITS | Encounter Summary ---
Author Organization [facility] Address [address] [place] [address] Care Team Providers Care Hand Router Operator Name Role Phone Regi Kelley MD Primary Care Provider [phone] Encounter Details Date Type Department Care Team (Late st Contact Info) Description 03/26/2023 Scanned Document [facility] [address] [place] [phone] Lebron Watkins MD [address] [place] [address] Social History Tobacco Use Types Packs/Day Years [...] on filedocumented in this encounter Care Teams Hand Router Operator Relationship Specialty Start Date End Date Regi Kelley MD [address] [place] [address] PCP - General Internal Medicine 06/04/21 documented as of this encounter
--- OUTSIDE RECORDS SUMMARY | 2024-10-08 06:34 | XMS_ITS | Patient Health Record ---
Author Organization [facility] Address [address] [place] [address] Care Team Providers Care Assembly Riveter Name Role Phone JAY BENEDICT Primary Care Provider [phone] ALLERGIES Allergen (clinical drug ingredient) Drug/Non Drug Allergy documented on EMR Reaction Allergy Type Onset Date Status ciprofloxacin Cipro Unknown Drug Allergy Act ariel REASON FOR REFERRAL Reason [place] [facility] Diagnosis 1 Crohn's disease, uns pecified, without complications (K50.90) Referral Organization [facility] Referring Provider First Name JAY Referring Provider Last Name MARICHUY Referring Provider Speciality Internal M edicine Referred Provider Specialty Gastroentero logy General Notes referral faxed to lauro lloyd , phone [phone], fax [phone], [address] [place] [address] [place] [address] Clinical Notes Valdo Steele 024 11:55:05 AM [...] 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 Hemoglobinopath y (58693083) Problem Vitamin D deficiency, unspecified (E55.9) Active confirmed Vitamin D deficiency (94052037) Problem Insomnia, unspecified (G47.00) Active confirmed Insomni a (390834133) Problem Chronic rhinitis (J31.0) Active confirmed Chronic rhiniti s (03928992) Problem Chronic sinusitis, unspecified (J32.9) Active confirmed Chronic sinusitis (26369290) Problem Crohn's disease, unspecified, without complications (K50.90) Active confirmed Crohn's disease (73424728) Problem Encounter for general adult medical examination without abnormal findings (Z00.00) Active confirmed 803301657 Problem Encounter for screening for lipoid disorders (Z13.220) Active confirmed 365722858 Problem Prediabetes (R73.03) Active confirmed 7 83871185 Problem Essential hypertension (I10) Active confirmed 19061572 Problem Hyperlipidemia, unspecified hyperlipidemia type (E78.5) Active confirmed 39623603 Problem Anxiety (F41.9) Active confirmed Anxiet y (67203028) Problem Hypothyroidism, unspecified type (E03.9) Active confirmed 72632173 Problem Arthritis (M19.90) Active confirmed Art hritis (8004532) Problem Hypogonadism in male (E29.1) Active confirmed Male hypogonadi sm (28322971) Problem ROEL (obstructive sleep apnea) (G47.33) Active confirmed 71722043 Problem Hypertension, unspecified type (I10) Active confirmed 58726589 Problem Gastroesophageal reflux disease, unspecified whether esophagitis present (K21.9) Active confirmed 847486669 Problem Prostate cancer screening (Z12.5) Active confirmed Screening for malignant neoplasm of prostate (589826611) Problem Atherosclerosis (I70.90) Active confirmed Atherosclerosis (33614444) Problem Pre-syncope (R55) Active confirmed 4274 75769 Problem Memory change (R41.3) Active confirmed 295238054 Problem Rhinosinusitis (J32.9) Active confirmed 201514102 Encounters Encounter Location Date Provider Diagnosis [address] [place] [address] 03/16/2024 JOSE GUADALUPEELLY BENEDICT [address] [place] [address] 03/08/[address] [place] [address] 03/11/2024 TALELLY BENEDICT [facility] [address] [place] [address] 05/[facility] [address] [place] [address] 05/12/2024 JOSE GUADALUPEELLY BENEDICT [address] [place] [address] 10/09/2023 JOSE GUADALUPEELLY BENEDICT PLAN OF TREATMENT Pending Test Test Name Order Date Echocardiogram 07/04/2021 GGT 09/19/2023 JACLYN w/Reflex 09/19/2023 PSA Total+ Free 01/26/2020 ESR 09/19/2023 Testosterone, total 01/26/2020 MRI : Brain +/- 05/30/2022 25OH VITAMIN D 11/20/2021 25OH VITAMIN D 09/19/2023 ACETYLCHOLINE RECEPTOR MODULATING ANTIBO DIES 09/19/2023 CBC (COMPLETE BLOOD COUNT) 11/20/2021 CBC (COMPLETE BLOOD COUNT) 08/04/2018 CBC (COMPLETE BLOOD COUNT) 07/18/2020 COMPREHENSIVE METABOLIC PANEL 08/04/2018 COMPREHENSIVE METABOLIC PANEL 11/20/2021 COMPREHENSIVE METABOLIC PANEL 07/18/2020 COMPREHENSIVE METABOLIC PANEL 09/19/2023 CRP, HIGH SENSITIVITY 09/19/2023 FERRITIN 09/19/2023 HEMOGLOBIN A1C 09/19/2023 HEMOGLOBIN A1C 11/20/2021 HEMOGLOBIN A1C 08/04/2018 LIPID PANEL 08/04/2018 LIPID PANEL 07/18/2020 LIPID PANEL 11/20/2021 LIPID PANEL 09/19/2023 MAGNESIUM 09/19/2023 PSA, SCREEN 09/19/2023 PSA, SCREEN 11/20/2021 TSH 09/19/2023 TSH 11/20/2021 URINALYSIS W/REFLEX CULTURE 09/19/2023 URINALYSIS, COMPLETE 07/18/2020 URINALYSIS, COMPLETE 08/04/2018 Insulin Level 09/19/2023 DHEA (Dehydroepiandrosterone) 09/19/2023 C-Peptide 09/19/2023 CBC with Differential 09/19/2023 XR Chest 2 Views 01/15/2022 LIPID PANEL, STANDARD 05/30/2022 LIPID PANEL, STANDARD 02/17/2023 COMPREHENSIVE METABOLIC PANEL 02/17/2023 CBC (INCLUDES DIFF/PLT) 02/17/2023 URINALYSIS, COMPLETE 02/17/2023 VITAMIN B12 05/30/2022 VITAMIN D,25-OH,TOTAL,IA 05/30/2022 COMPLETE URINALYSIS 11/20/2021 COMPLETE URINALYSIS 12/04/2022 SARS CoV 2 RNA(COVID 19), QUALITATIVE NA AT 05/23/2021 Insurance Providers Payer Name Payer Address Payer Phone Subscriber Number Group Number Insured Name Patient Relationship to Insured Coverage Start Date Coverage End Date [facility] Indemnity Plan [facility] [address] [place] [address] [id number] EFE FINLEY Self - patient is the insured MEDICAL (GENERAL) HISTORY Medical History History ICD Code Crohns SI Kidney stones (uric acid) Surgical History Surgery Date(Month/Year) deviated septum repair lasik bilateral shoulder ac joint repair bilateral hands tendon repair right hip tonsillectomy
--- OUTSIDE RECORDS SUMMARY | 2024-10-08 06:34 | XMS_ITS | Referral Summary ---
Author Organization [facility] Address [address] [place] [address] Care Team Providers Care Ward Nurse Name Role Phone Regi Kelley Primary Care Provider [phone] Allergies Active Allergy Reactions Criticality Noted Date [...] Not on file Procedures * Due to [place] [employer] law, this organization might not be sharing negative HIV tests. Procedure Name Priority Date/Time Associated Diagnosis Comments COLONOSCOPY 05/22/2017 8:30 AM EDT from Last 3 Months or Most Recently Relevant to Health Maintenance Results * Due to [place] [employer] law, this organization might not be sharing [...] Documents on File Type Date Recorded Patient Sfdc Consultant Expl anation Advance Directive 05/17/2014 12:00 AM Adva nce Care Directives Advance Directive 03/10/2012 12:00 AM cherie sales Dec Aramis (Adv.Dir) Care Teams Ward Nurse Relationship Specialty Start Date End Date KelleyJaden oneillsara [address] [place] [address] PCP - General 07/26/20
--- OUTSIDE RECORDS SUMMARY | 2024-10-08 06:35 | XMS_ITS | Clinical Summary ---
Author Organization [facility] Address [address] [place] [address] Care Team Providers Care Judicial Clerk Name Role Phone Regi Kelley MD Primary Care Provider Social History Tobacco Use Types Packs/Day Years [...] DTaP,Tdap,and Td Vaccines (1 - Tdap) 1981 Pneumococcal Vaccine: 50+ Ye ars (1 of 1 - PCV) 2012 Zoster Vaccines (1 of 2) 2012 Cholesterol Screening (Lipid Panel) 07/24/2022 Colorectal Cancer Screening: Colonoscopy 07/24/2022 Depression Screening 07/24/2022 HIV Screening 07/24/2022 Hepatitis C Screening 07/24/2022 Social Influencers of Health Screening 07/24/2022 Hypertension/CHF/CAD Annual BMP Blood Test 10/11/2023 COVID-19 Vaccine (1 - 2023-2 5 season) 2024 Influenza Vaccine [...] patient's age to complete this topic Meningococcal B Vacine Aged Out No lo nger eligible based on patient's age to complete [...] age to complete this topic Care Teams Judicial Clerk Relationship Specialty Start Date End Date Regi Kelley MD PCP - General Internal Medicine 07/09/21
--- OUTSIDE RECORDS SUMMARY | 2024-10-08 06:35 | XMS_ITS ---
Author Organization [facility] Address [address] [place] [address] Care Team Providers Care Tower Operator Name Role Phone JAY BENEDICT Primary Care Provider [phone] REASON FOR VISIT Billing Ques Encounters Encounter Location Date Provider Diagnosis [facility] [address] [place] [address] 05/12/2024 JAY BENEDICT PLAN OF TREATMENT No Information Progress Notes * EFE FINLEY WDOB: 2 (64 yo M)Acc No.[id number]:05/12/2024 Patient:??EFE FINLEY :1960?Age:64 Y?Sex:Haylee wren Address:[address] [place] [address] * true * Date:??
--- OUTSIDE RECORDS SUMMARY | 2024-10-08 06:35 | XMS_ITS | Clinical Summary ---
Author Organization [facility] Address [address] [place] [address] Care Team Providers Care Cross Tie Turner Name Role Phone Unavailable Primary Care Provider [...] topic Solis Thayer Personal/Family Self 1960 [address] [facility] [place] [address]
--- OUTSIDE RECORDS SUMMARY | 2024-10-08 06:35 | XMS_ITS ---
Author Organization [facility] Address [address] [place] [address] Care Team Providers Care Radiographic Technologist Name Role Phone JAY KELLEY Primary Care Provider Encounters Encounter Location Date Provider Diagnosis [address] [facility] [address] [place] [address] 03/16/2024 JAY KELLEY PLAN OF TREATMENT No Information Progress Notes * EFE FINLEY WDOB: 2 (64 yo M)Acc No.[id number]:03/16/2024 CPE Patient:??EFE FINLEY Provider:??Jay Kelley MD :1960?Age:64 Y?Sex:Haylee wren Date:03/16/2024 Address:[address] [place], [place] [address] Subjective: * Chief Complaints: * ? * Medical History:?? Objective: Assessment: Plan: * Treatment: * Images: Billing Information: * Visit Code:?? * Procedure Codes:?? Care Plan Details* * Sign off status: Pending * Provider:??Jay Kelley MD Date:??03/16
[2024-10-08 09:53] LABS: MANUAL DIFF FLAG NO
[2024-10-08 10:00] LABS: Basophils Absolute Auto 0.1 X10*3/uL (0.0-0.2); Eosinophils Absolute Auto 0.4 X10*3/uL (0.0-0.4); Eosinophils Percent Auto 5.1 % (0-4); Hematocrit 46.3 % (42.0-52.0); Hemoglobin 15.3 g/dl (14.0-18.0); Imm Gran Abs Auto 0.02 X10*3/uL (0.00-0.03); Imm Gran Pct Auto 0.3 % (0.0-0.4); Lymphocytes Absolute Auto 2.1 X10*3/uL (1.2-4.9); Lymphocytes Percent Auto 29.6 % (20-40); Mean Corpuscular Hemoglobin 31.2 pg (27.0-33.0); Mean Corpuscular Volume 94.5 fL (80.0-98.0); Mean Platelet Volume 9.8 fL (9.4-12.4); Monocytes Absolute Auto 0.5 X10*3/uL (0.1-1.2); Monocytes Percent Auto 7.1 % (2-11); Neutrophils Absolute Auto 3.9 x10*3/uL (2.0-8.3); Neutrophils Percent Auto 56.9 % (45-73); Platelet Count 209 X10*3/uL (160-400); Red Cell Distribution Width 12.9 % (11.0-16.0); White Blood Count 6.9 X10*3/uL (4.8-10.8)
[2024-10-08 10:07] LABS: Estimated Average Glucose 111 mg/dL; Hemoglobin A1c % 5.5 % (<6.0); Total Hemoglobin (HGBA1C) 3969.2921 umol/L
[2024-10-08 10:09] LABS: Appearance Urine Clear; Color Urine Yellow; Glucose Urine UA Negative (Negative); Leukocyte Esterase Urine Negative (Negative); Nitrite Urine Negative (Negative); Urine Blood Negative (Negative); Urine Ketones Negative (Negative); Urine Protein Negative (Neg-Trace)
[2024-10-08 10:14] LABS: Rheumatoid Factor 22.6 IU/mL (<15.0)
[2024-10-08 10:25] LABS: Alanine Aminotransferase 17 U/L (0-40); Albumin Level 3.8 g/dL (3.5-5.0); Alkaline Phosphatase 48 U/L (39-117); Anion Gap 10 (12-20); Aspartate Amino Transferase 19 U/L (5-37); Bilirubin Total 1.2 mg/dL (0.0-1.0); Blood Urea Nitrogen 15 mg/dL (9-16); Calcium 8.4 mg/dL (8.4-10.2); Carbon Dioxide 25 mmol/L (22-29); Chloride 106 mmol/L (96-108); Estimated Glomerular Filt Rate > 60; Glucose Fasting 102 mg/dL (60-99); Potassium 3.7 mmol/L (3.3-5.1); Sodium 137 mmol/L (135-145); Total Protein 6.9 g/dL (6.5-8.0)
[2024-10-08 10:49] LABS: Thyroid Stimulating Hormone 2.24 uIU/mL (0.32-4.0)
[2024-10-08 11:23] LABS: Erythrocyte Sedimentation Rate 2 MM/HR (0-15)
[2024-10-09 23:28] LABS: Triiodothyronine T3 Total 101 ng/dL (76-181)
[2024-10-11 14:37] LABS: CRP High Sensitivity 0.5 mg/L
[2024-10-11 22:49] LABS: Lyme Abs Screen <0.90 index
[2024-10-14 16:09] LABS: Testosterone, Free 64.7 pg/mL (35.0-155.0); Testosterone, Total 348 ng/dL (250-1100)
[2024-10-15 10:58] LABS: Anti Nuclear Antibody Pattern Nuclear, Speckled; Anti Nuclear Antibody Screen POSITIVE (NEGATIVE); Anti Nuclear Antibody Titer 1:40 titer
== END 2024-10-08 06:33 | disposition home or self-care (01) ==
LOC: HO.HMGCLDS 06:32
PROVIDERS: PCP Family Medicine; Visit Provider Family Medicine
DX: Z00.00 Encounter for general adult medical examination without abnormal findings (principal); R53.83 Other fatigue; R73.01 Impaired fasting glucose; E03.9 Hypothyroidism, unspecified
CPT/HCPCS: 36415; 80053; 81003; 83036; 84402; 84403; 84439; 84443; 84480; 85025; 85652; 86038; 86039; 86141; 86431; 86617; 86618

== ENCOUNTER 2024-11-02 11:20 | Outpatient (AMB) | payer OTHER, SELFPAY ==
--- NOTE | 2024-11-02 11:06 | MHC.PC.OV ---
Intake Visit Reasons: F/U Labs Montessori Lead Teacher Required: No Allergies dog dander Allergy (Intermediate, Verified 11/02/24 11:06) Unknown ciprofloxacin [From Cipro] Allergy (Mild, Verified 11/02/24 11:06) Unknown Medication List - Last Reconciled 11/02/24 by Macario Solano MD betamethasone valerate 0.1% 1 appl topical BID PRN valsartan 80 mg PO DAILY Tobacco use date assessed: 03/08/24 Dental Screening Dental Screen Date: 03/08/24 HPI F/U Labs HPI Details 64 y/o male presents to f/u labs. Had complaints of decreased libido, fatigue and memory/concentration changes. Labs drawn 10/08/24. Reviewed labs with pt. Elevated fasting glucose of 102. A1c 5.5%. TSH 2.24. Testosterone levels are fine. [facility] Medical History (Updated 11/02/24 @ 11:56 by Macario Solano MD) Sleep apnea Cyst of right kidney Carotid artery plaque Atherosclerosis of abdominal aorta Surgical History Hx of colonoscopy History of esophagogastroduodenoscopy (EGD) Hx of hand surgery History of shoulder surgery Family History Father Cancer Mother Arthritis Social History Household Members: None Both parents involved: No Caregiver staying overnight: No Housing: House Are you a primary health care manager to a significant other at home: No Do you presently have visiting nurse or other home services: No Alcohol intake: never Patient Tobacco Use Status: Never used Tobacco Tobacco use type: Cigarette e-Cigarette/Vaping Use: Never Used Special leila needs: No service: Yes Current occupational status: retired Cognitive needs: No Hearing needs: No Vision needs: Yes (Patient wears glasses.) Questionnaire Thrive Questionnaire Date Thrive assessed: 10/04/24 TEGAN-7 AMB Questionnaire TEGAN-7 Date TEGAN - 7 assessed: 05/20/24 Source: Developed by Drs. Keyshawn Rodriguez, Ladonna Spears, Clovis Frances and colleagues, with an educational maggie from [employer]. Physical exam (Primary Care) Tobacco/Smoking Status: Tobacco use Status Tobacco use date assessed 03/08/24 11/02/24 11:08 Patient Tobacco Use Status Never used Tobacco 11/02/24 11:08 Tobacco use type Cigarette 11/02/24 11:08 e-Cigarette/Vaping Use Never Used 11/02/24 11:08 Thrive Assessment: Date of Thrive Assessment Date Thrive assessed 10/04/24 11/02/24 11:08 Telehealth Telehealth Telehealth Platform: Telephone Location of provider rendering services: practice address Location of patient: address on file Patient Identification confirmed using: Name, : Yes Telehealth method: voice only Patient verbally consented to treatment: Yes Patient verbally consented to billing insurance company: Yes Patient informed of any privacy concerns related to visit: Yes Minutes spent on Phone/Video with Pt.: 20 Coding Level of Care Code Tele Est Pt Level 3 (43369) Diagnoses Decreased libido R68.82 Fatigue R53.83 Assessment & Plan Assessment & Plan (1) Decreased libido: Code(s): R68.82 - Decreased libido Category: Medical Plan: Ongoing?decreased?libido. No?underlying?laboratory?derangements?to?explain?this. 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 He?will?follow-up?at?his?next?visit?in?February Orders: Referrals Urology Referral N52.9 - Male erectile dysfunction, unspecified, R68.82 - Decreased libido Nurse Navigator Referral R68.82 - Decreased libido
--- OUTSIDE RECORDS SUMMARY | 2024-11-02 14:00 | XMS_ITS | Clinical Summary ---
Author Organization [facility] Address [address] [place] [address] Care Team Providers Care Instructional Designer Name Role Phone Regi Kelley Primary Care Provider [phone] Allergies Active Allergy Reactions Criticality Noted Date [...] DTaP,Tdap,and Td Vaccines (1 - Tdap) 1984 Pneumococcal Vaccine: 50+ Years (1 of 1 - PCV) 2012 Colonoscopy 05/22/2019 05/22/2017, 06/0 11/2014, 04/14/2013, Additional history exists Zoster Vaccines (2 of 2) 10/11/2020 08/16/2020 COVID-19 Vaccine (1 - 2023- season) 2024 Influenza Vaccine (#1) 2024 07/19/2020 Alcohol/Substance Use Screening 08/25/2024 RSV Vaccine (60+ years old and patients) (1 - 1-dose 75+ series) 2037 Hepatitis B Vaccines Aged Out No long er eligible based on patient's age to complete this topic Procedures * Due to [place] law, this organization might not be sharing negative HIV tests. Procedure Name Priority Date/Time Associated Diagnosis Comments COLONOSCOPY 05/22/2017 8:30 AM EDT from Last 3 Months or Most Recently Relevant to Health Maintenance Results * Due to [place] law, this organization might not be sharing [...] Most Recently Relevant to Health Maintenance Insurance [facility] Advance Directives Documents on File Type Date Recorded Patient Filter Washer And Presser Expl anation Advance Directive 05/17/2014 12:00 AM Adva nce Care Directives Advance Directive 03/10/2012 12:00 AM cherie sales Dec Making (Adv.Dir) Care Teams Instructional Designer Relationship Specialty Start Date End Date Regi Kelley [address] [place] [address] PCP - General 07/26/20
--- OUTSIDE RECORDS SUMMARY | 2024-11-02 14:01 | XMS_ITS | Clinical Summary ---
Author Organization [facility] Address [address] [place] [address] Care Team Providers Care Warp Trucker Name Role Phone Regi Kelley MD Primary Care Provider [phone] Allergies Active Allergy Reactions Criticality Noted Date [...] 1 02/06/2023 Active Sodium Sulfate-Mag Sulfate-KCl (Sutab) 0909-675-131 MG TabIndications:Croh n's disease of large intestine without complication (HCC) Take 12 tablets by mouth once. One dose of 12 tablets on the Day Prior to procedure. One dose of 12 tablets on the Day Of the procedure. BIN: [id number] PCN: CN GROUP: [id number] ID: [id number] 24 tablet 02/07/2023 Active mesalamine (LIALDA) 1.2 [...] age to complete this topic Care Teams Warp Trucker Relationship Specialty Start Date End Date Regi Kelley MD [address] [place] [address] PCP - General Internal Medicine 06/04/21
--- OUTSIDE RECORDS SUMMARY | 2024-11-02 14:01 | XMS_ITS | Patient Health Record ---
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 Hemoglobinopath y (07890726) Problem Vitamin D deficiency, unspecified (E55.9) Active confirmed Vitamin D deficiency (08244880) Problem Insomnia, unspecified (G47.00) Active confirmed Insomni a (171741212) Problem Chronic rhinitis (J31.0) Active confirmed Chronic rhiniti s (38889503) Problem Chronic sinusitis, unspecified (J32.9) Active confirmed Chronic sinusitis (50470439) Problem Crohn's disease, unspecified, without complications (K50.90) Active confirmed Crohn's disease (17277750) Problem Encounter for general adult medical examination without abnormal findings (Z00.00) Active confirmed 489715428 Problem Encounter for screening for lipoid disorders (Z13.220) Active confirmed 357601953 Problem Prediabetes (R73.03) Active confirmed 7 13200348 Problem Essential hypertension (I10) Active confirmed 28320147 Problem Hyperlipidemia, unspecified hyperlipidemia type (E78.5) Active confirmed 43730245 Problem Anxiety (F41.9) Active confirmed Anxiet y (87940488) Problem Hypothyroidism, unspecified type (E03.9) Active confirmed 28920229 Problem Arthritis (M19.90) Active confirmed Art hritis (4686083) Problem Hypogonadism in male (E29.1) Active confirmed Male hypogonadi sm (27280428) Problem ROEL (obstructive sleep apnea) (G47.33) Active confirmed 49176706 Problem Hypertension, unspecified type (I10) Active confirmed 72050141 Problem Gastroesophageal reflux disease, unspecified whether esophagitis present (K21.9) Active confirmed 647900056 Problem Prostate cancer screening (Z12.5) Active confirmed Screening for malignant neoplasm of prostate (777047408) Problem Atherosclerosis (I70.90) Active confirmed Atherosclerosis (80822390) Problem Pre-syncope (R55) Active confirmed 4274 16080 Problem Memory change (R41.3) Active confirmed 441621502 Problem Rhinosinusitis (J32.9) Active confirmed 950338563 Encounters Encounter Location Date Provider Diagnosis [address] [facility] [address] [place] [address] 03/16/2024 JAY BENEDICT [address] [facility] [address] [place] [address] 03/08/2024 JAY BENEDICT [facility] [address] [facility] [address] [facility] [address] [place] [address] 03/11/2024 JAY BENEDICT [facility] [address] [place] [address] 05/12/2024 JAY BENEDICT [facility] [address] [place] [address] 05/12/2024 JAY BENEDICT PLAN OF TREATMENT Pending Test Test Name Order Date Echocardiogram 07/04/2021 GGT 09/19/2023 JACLYN w/Reflex 09/19/2023 PSA Total+ Free 01/26/2020 ESR 09/19/2023 Testosterone, total 01/26/2020 MRI : Brain +/- 05/30/2022 25OH VITAMIN D 09/19/2023 25OH VITAMIN D 11/20/2021 ACETYLCHOLINE RECEPTOR MODULATING ANTIBO DIES 09/19/2023 CBC (COMPLETE BLOOD COUNT) 07/18/2020 CBC (COMPLETE BLOOD COUNT) 08/04/2018 CBC (COMPLETE BLOOD COUNT) 11/20/2021 COMPREHENSIVE METABOLIC PANEL 11/20/2021 COMPREHENSIVE METABOLIC PANEL 08/04/2018 COMPREHENSIVE METABOLIC PANEL 07/18/2020 COMPREHENSIVE METABOLIC PANEL 09/19/2023 CRP, HIGH SENSITIVITY 09/19/2023 FERRITIN 09/19/2023 HEMOGLOBIN A1C 11/20/2021 HEMOGLOBIN A1C 09/19/2023 HEMOGLOBIN A1C 08/04/2018 LIPID PANEL 08/04/2018 LIPID PANEL 11/20/2021 LIPID PANEL 07/18/2020 LIPID PANEL 09/19/2023 MAGNESIUM 09/19/2023 PSA, SCREEN 09/19/2023 PSA, SCREEN 11/20/2021 TSH 11/20/2021 TSH 09/19/2023 URINALYSIS W/REFLEX CULTURE 09/19/2023 URINALYSIS, COMPLETE 07/18/2020 [...] Insured Coverage Start Date Coverage End Date [facility] [address] [place] [address] [id number] EFE FINLEY Self - patient is the insured MEDICAL (GENERAL) HISTORY Medical History History ICD Code Crohns SI Kidney stones (uric acid) Surgical History Surgery Date(Month/Year) deviated septum repair lasik bilateral shoulder ac joint repair bilateral hands tendon repair right hip tonsillectomy
--- OUTSIDE RECORDS SUMMARY | 2024-11-02 14:01 | XMS_ITS | Encounter Summary ---
Author Organization [facility] Address [address] [place] [address] Care Team Providers Care Ldr Rn Name Role Phone Regi Kelley MD Primary Care Provider [phone] Encounter Details Date Type Department Care Team (Late st Contact Info) Description 03/26/2023 Scanned Document [facility] [address] [place] [phone] Lebron Watkins MD [address] [place] [address] Social History Tobacco Use Types Packs/Day Years [...] on filedocumented in this encounter Care Teams Ldr Rn Relationship Specialty Start Date End Date Regi Kelley MD [address] [place] [address] PCP - General Internal Medicine 06/04/21 documented as of this encounter
--- OUTSIDE RECORDS SUMMARY | 2024-11-02 14:01 | XMS_ITS ---
Author Organization [facility] Address [address] [place] [address] Care Team Providers Care Mapping Editor Name Role Phone JAY KELLEY Primary Care Provider Encounters Encounter Location Date Provider Diagnosis [address] [facility] [address] [place] [address] 03/16/2024 JAY KELLEY PLAN OF TREATMENT No Information Progress Notes * EFE FINLEY WDOB: 2 (64 yo M)Acc No.[id number]:03/16/2024 CPE Patient:??EFE FINLEY Provider:??Jay Kelley MD :1960?Age:64 Y?Sex:Haylee wren Date:03/16/2024 Address:[address] [place], [place] [address] Subjective: * Chief Complaints: * ? * Medical History:?? Objective: Assessment: Plan: * Treatment: * Images: Billing Information: * Visit Code:?? * Procedure Codes:?? Care Plan Details* * Sign off status: Pending * Provider:??Jay Kelley MD Date:??03/16
--- OUTSIDE RECORDS SUMMARY | 2024-11-02 14:01 | XMS_ITS | Clinical Summary ---
Author Organization [facility] ity Address [address] [place] [address] Care Team Providers Care Computer Field Technician Name Role Phone Regi Kelley MD Primary Care Provider [phone] Social History Tobacco Use Types Packs/Day Years [...] age to complete this topic Care Teams Computer Field Technician Relationship Specialty Start Date End Date Regi Kelley MD PCP - General Internal Medicine 07/09/21
--- OUTSIDE RECORDS SUMMARY | 2024-11-02 14:01 | XMS_ITS | Clinical Summary ---
Author Organization [facility] Address [address] [place] [address] Care Team Providers Care Web Content Coordinator Name Role Phone Unavailable Primary Care Provider [...] topic Solis Thayer Personal/Family Self 1960 [address] [facility] [place] [address]
--- OUTSIDE RECORDS SUMMARY | 2024-11-02 14:01 | XMS_ITS | Referral Summary ---
Author Organization [facility] Address [address] [place] [address] Care Team Providers Care Ironing Machine Operator Name Role Phone Regi Kelley Primary Care Provider [phone] Allergies Active Allergy Reactions Criticality Noted Date [...] Not on file Procedures * Due to [place] law, this organization might not be sharing negative HIV tests. Procedure Name Priority Date/Time Associated Diagnosis Comments COLONOSCOPY 05/22/2017 8:30 AM EDT from Last 3 Months or Most Recently Relevant to Health Maintenance Results * Due to [place] law, this organization might not be sharing [...] Documents on File Type Date Recorded Patient Dynamite Packing Machine Operator Expl anation Advance Directive 05/17/2014 12:00 AM Adva nce Care Directives Advance Directive 03/10/2012 12:00 AM cherie sales Dec Aramis (Adv.Dir) Care Teams Ironing Machine Operator Relationship Specialty Start Date End Date KelleyRegi oneill [address] [place] [address] PCP - General 07/26/20
--- OUTSIDE RECORDS SUMMARY | 2024-11-02 14:01 | XMS_ITS ---
Author Organization [facility] Address [address] [place] [address] Care Team Providers Care Warehouse Order Filler Name Role Phone JAY BENEDICT Primary Care Provider REASON FOR VISIT Med Recs Encounters Encounter Location Date Provider Diagnosis [facility] [address] [place] [address] 05/12/2024 JAY BENEDICT PLAN OF TREATMENT No Information Progress Notes * EFE FINLEY WDOB: 2 (64 yo M)Acc No.[id number]:05/12/2024 Patient:??EFE FINLEY :1960?Age:64 Y?Sex:Haylee wren Address:[address] [place] [address] * true * Date:??
--- OUTSIDE RECORDS SUMMARY | 2024-11-02 14:01 | XMS_ITS ---
Author Organization [facility] Address [address] [place] [address] Care Team Providers Care Accounts Payable Lead Name Role Phone JAY BENEDICT Primary Care Provider [phone] REASON FOR VISIT Billing Ques Encounters Encounter Location Date Provider Diagnosis [facility] [address] [place] [address] 05/12/2024 JAY BENEDICT PLAN OF TREATMENT No Information Progress Notes * EFE FINLEY WDOB: 2 (64 yo M)Acc No.[id number]:05/12/2024 Patient:??EFE FINLEY :1960?Age:64 Y?Sex:Haylee wren Address:[address] [place] [phone] * true * Date:??
== END 2024-11-02 12:07 | disposition home or self-care (01) ==
LOC: HO.HMCFM 11:20
PROVIDERS: PCP Family Medicine; Visit Provider Family Medicine
DX: R68.82 Decreased libido (principal); R53.83 Other fatigue

== ENCOUNTER 2024-11-10 10:26 | Outpatient (AMB) | payer OTHER, SELFPAY ==
--- NOTE | 2024-11-10 10:28 | MHC.OFFWIV ---
Intake Vital Signs 11/10/24 10:33 Height 5 ft 9 in Weight 207 lb BMI 30.6 BP 138/76 Blood Pressure Location Rt brachial Position Sitting Respiration 13 Pulse 88 Pulse Source Pulse Oximeter Temp 97.1 F Temp Source Oral Pulse Oximetry (%) 94 Oxygen Delivery Method Room Air Intake Visit Reasons: wants test for std Intake Note: Patient wants to get tested for std, patient was not exposed just started a new relationship Patient Tobacco Use Status: Never used Tobacco Lace Machine Operator Required: No Allergies dog dander Allergy (Intermediate, Verified 11/10/24 10:51) Unknown ciprofloxacin [From Cipro] Allergy (Mild, Verified 11/10/24 10:51) Unknown Medication List - Last Reconciled 11/10/24 by Fidelina Cardozo CNP valsartan 80 mg PO DAILY Do you need a note to return to daycare/school/sports/work: No HPI HPI Comments History of Present Illness Details 64-year-old male presents with requests for STD testing. He notes that he is in a new relationship. He is sexually active, in a monogamous relationship and has no concern for STD. He offers no complaints and denies acute symptoms at this time. [facility] Medical History (Updated 11/10/24 @ 10:48 by Fidelina Cardozo CNP) Sleep apnea Cyst of right kidney Carotid artery plaque Atherosclerosis of abdominal aorta Surgical History Hx of colonoscopy History of esophagogastroduodenoscopy (EGD) Hx of hand surgery History of shoulder surgery Family History Father Cancer Mother Arthritis Social History Household Members: None Both parents involved: No Caregiver staying overnight: No Housing: House Are you a primary sub acute care nurse to a significant other at home: No Do you presently have visiting nurse or other home services: No Alcohol intake: never Patient Tobacco Use Status: Never used Tobacco Tobacco use type: Cigarette e-Cigarette/Vaping Use: Never Used Special leila needs: No service: Yes Current occupational status: retired Cognitive needs: No Hearing needs: No Vision needs: Yes (Patient wears glasses.) Review of Systems Const Details: Denies chills, Denies fatigue, Denies fever(s), Denies headache(s) and Denies weakness Cardiac Denies chest pain, Denies claudication, Denies leg edema, Denies lightheadedness, Denies palpitations, Denies dyspnea, Denies dyspnea on exertion, Denies orthopnea and Denies other (Loss of consciousness) Resp Denies cough, Denies excessive phlegm production, Denies dyspnea, Denies dyspnea on exertion, Denies snoring and Denies wheezing Physical Exam Vital Signs: Last Vital Signs Temp 97.1 F 11/10/24 10:33 Pulse 88 11/10/24 10:33 Resp 13 11/10/24 10:33 BP 138/76 11/10/24 10:33 Pulse Ox 94 11/10/24 10:33 Oxygen Delivery Method Room Air 11/10/24 10:33 BMI result Body Mass Index 30.6 Const Other: General: comfortable and no acute distress Orientation/consciousness: patient oriented x3 Chest Chest palpation & inspection: normal inspection of the chest Resp Auscultation: clear to auscultation bilaterally Cardiac Palpation: normal PMI Heart sounds: S1 normal heart sound present, S2 normal heart sound present, no gallops, no murmur, no rubs Assessment & Plan Assessment & Plan (1) Screen for STD (sexually transmitted disease): Code(s): Z11.3 - Encounter for screening for infections with a predominantly sexual mode of transmission Plan: Labs for STD screen ordered. Safe sexual practices encouraged. Verbalized understanding and agreed with the plan. Orders: Orders Syphilis Screen Today Z11.3 - Encounter for screening for infections with a predominantly sexual mode of transmission CT NG by PCR Today Z11.3 - Encounter for screening for infections with a predominantly sexual mode of transmission Hepatitis B,C Profile Today Z11.3 - Encounter for screening for infections with a predominantly sexual mode of transmission HIV Ab/Ag Today Z11.3 - Encounter for screening for infections with a predominantly sexual mode of transmission Coding Level of Care Code Est Pt Level 3 (13894) Diagnoses Screen for STD (sexually transmitted disease) Z11.3
[2024-11-10 10:33] VITALS: BP 138/76; PULSE 88; RESP 13; TEMP 36.2; O2SAT 94; BMI 30.6
--- OUTSIDE RECORDS SUMMARY | 2024-11-10 12:19 | XMS_ITS | Clinical Summary ---
Author Organization [facility] ity Address [address] [place] [address] Care Team Providers Care Information Technology Consultant Name Role Phone Regi Kelley MD Primary Care Provider [phone] Social History Tobacco Use Types Packs/Day Years [...] age to complete this topic Care Teams Information Technology Consultant Relationship Specialty Start Date End Date Regi Kelley MD PCP - General Internal Medicine 07/09/21
--- OUTSIDE RECORDS SUMMARY | 2024-11-10 12:19 | XMS_ITS ---
Author Organization [facility] Address [address] [place] [address] Care Team Providers Care Blow Mold Operator Name Role Phone JAY KELLEY Primary Care Provider Encounters Encounter Location Date Provider Diagnosis [address] [facility] [address] [facility] [address] [place] [address] 03/16/2024 JAY KELLEY PLAN OF TREATMENT No Information Progress Notes * EFE FINLEY WDOB: 2 (64 yo M)Acc No.[id number]:03/16/2024 CPE Patient:??EFE FINLEY Provider:??Jay Kelley MD :1960?Age:64 Y?Sex:Haylee wren Date:03/16/2024 Address:[address] [place], [place] [address] Subjective: * Chief Complaints: * ? * Medical History:?? Objective: Assessment: Plan: * Treatment: * Images: Billing Information: * Visit Code:?? * Procedure Codes:?? Care Plan Details* * Sign off status: Pending * Provider:??Jay Kelley MD Date:??03/16
--- OUTSIDE RECORDS SUMMARY | 2024-11-10 12:19 | XMS_ITS ---
Author Organization [facility] Address [address] [place] [address] Care Team Providers Care Roof Truss Builder Name Role Phone JAY BENEDICT Primary Care Provider [phone] REASON FOR VISIT Billing Ques Encounters Encounter Location Date Provider Diagnosis [facility] [address] [place] [address] 05/12/2024 JAY BENEDICT PLAN OF TREATMENT No Information Progress Notes * EFE FINLEY WDOB: 2 (64 yo M)Acc No.[id number]:05/12/2024 Patient:??EFE FINLEY :1960?Age:64 Y?Sex:Haylee wren Address:[address] [place] [address] * true * Date:??
--- OUTSIDE RECORDS SUMMARY | 2024-11-10 12:19 | XMS_ITS ---
Author Organization [facility] Address [address] [place] [address] Care Team Providers Care Information Assoc Name Role Phone JAY BENEDICT Primary Care Provider REASON FOR VISIT Med Recs Encounters Encounter Location Date Provider Diagnosis [facility] [address] [place] [address] 05/12/2024 JAY BENEDICT PLAN OF TREATMENT No Information Progress Notes * EFE FINLEY WDOB: 2 (64 yo M)Acc No.[id number]:05/12/2024 Patient:??EFE FINLEY :1960?Age:64 Y?Sex:Haylee wren Address:[address] [place] [address] * true * Date:??
--- OUTSIDE RECORDS SUMMARY | 2024-11-10 12:19 | XMS_ITS | Referral Summary ---
Author Organization [facility] Address [address] [place] [address] Care Team Providers Care Psychologist Military Personnel Name Role Phone Regi Kelley Primary Care Provider [phone] Allergies Active Allergy Reactions Criticality Noted Date [...] Not on file Procedures * Due to [place] [employer] law, this organization might not be sharing negative HIV tests. Procedure Name Priority Date/Time Associated Diagnosis Comments COLONOSCOPY 05/22/2017 8:30 AM EDT from Last 3 Months or Most Recently Relevant to Health Maintenance Results * Due to [place] [employer] law, this organization might not be sharing [...] Documents on File Type Date Recorded Patient Clinical Research Nurse Coordinator Expl anation Advance Directive 05/17/2014 12:00 AM Adva nce Care Directives Advance Directive 03/10/2012 12:00 AM cherie sales Dec Aramis (Adv.Dir) Care Teams Psychologist Military Personnel Relationship Specialty Start Date End Date KelleyRegi oneill [address] [place] [address] PCP - General 07/26/20
--- OUTSIDE RECORDS SUMMARY | 2024-11-10 12:19 | XMS_ITS | Clinical Summary ---
Author Organization [facility] Address [address] [place] [address] Care Team Providers Care Identification Clerk Name Role Phone Unavailable Primary Care Provider [...] topic Solis Thayer Personal/Family Self 1960 [address] [facility] [place] [address]
--- OUTSIDE RECORDS SUMMARY | 2024-11-10 12:19 | XMS_ITS | Clinical Summary ---
Author Organization [facility] Address [address] [place] [address] Care Team Providers Care Campaign Fundraiser Name Role Phone Regi Kelley Primary Care Provider [phone] Allergies Active Allergy Reactions Criticality Noted Date [...] this topic Procedures * Due to [place] [employer] law, this organization might not be sharing negative HIV tests. Procedure Name Priority Date/Time Associated Diagnosis Comments COLONOSCOPY 05/22/2017 8:30 AM EDT from Last 3 Months or Most Recently Relevant to Health Maintenance Results * Due to [place] [employer] law, this organization might not be sharing [...] Blood Loss: Estimated blood loss was minimal. Lexsu Bolanos MD PROVATION PROCEDURES Final Result from Last 3 Months or Most Recently Relevant to Health Maintenance Insurance [facility] Advance Directives Documents on File Type Date Recorded Patient Technical Support Consultant Expl anation Advance Directive 05/17/2014 12:00 AM Adva nce Care Directives Advance Directive 03/10/2012 12:00 AM cherie sales Dec Making (Adv.Dir) Care Teams Campaign Fundraiser Relationship Specialty Start Date End Date Regi Kelley [address] [place] [id number] PCP - General 07/26/20
--- OUTSIDE RECORDS SUMMARY | 2024-11-10 12:19 | XMS_ITS | Clinical Summary ---
Author Organization [facility] Address [address] [place] [address] Care Team Providers Care Steward/Stewardess Lounge Name Role Phone Regi Kelley MD Primary Care Provider [phone] Allergies Active Allergy Reactions Criticality Noted Date [...] 1 02/06/2023 Active Sodium Sulfate-Mag Sulfate-KCl (Sutab) 7834-366-655 MG TabIndications:Croh n's disease of large intestine without complication (HCC) Take 12 tablets by mouth once. One dose of 12 tablets on the Day Prior to procedure. One dose of 12 tablets on the Day Of the procedure. BIN: [id number] PCN: CN GROUP: [id number] ID: [id number] 24 tablet 02/07/2023 Active mesalamine (LIALDA) 1.2 [...] age to complete this topic Care Teams Steward/Stewardess Lounge Relationship Specialty Start Date End Date Regi Kelley MD [address] [place] [address] PCP - General Internal Medicine 06/04/21
--- OUTSIDE RECORDS SUMMARY | 2024-11-10 12:19 | XMS_ITS | Encounter Summary ---
Author Organization [facility] Address [address] [place] [address] Care Team Providers Care Oil Well Services Supervisor Name Role Phone Regi Kelley MD Primary Care Provider [phone] Encounter Details Date Type Department Care Team (Late st Contact Info) Description 03/26/2023 Scanned Document [facility] [address] [place] [phone] Lebron Watkins MD [address] [place] [address] Social History Tobacco Use Types Packs/Day Years [...] on filedocumented in this encounter Care Teams Oil Well Services Supervisor Relationship Specialty Start Date End Date Regi Kelley MD [address] [place] [address] PCP - General Internal Medicine 06/04/21 documented as of this encounter
== END 2024-11-10 10:48 | disposition home or self-care (01) ==
PROVIDERS: PCP Family Medicine; Visit Provider Nurse Practitioner Family
DX: Z11.3 Encounter for screening for infections with a predominantly sexual mode of transmission (principal)

== ENCOUNTER → 2024-11-10 10:26 | Outpatient (BNVA) | payer OTHER, SELFPAY | PROVIDERS: PCP Family Medicine ==

== ENCOUNTER 2024-11-10 11:09 | Outpatient (REF) | payer OTHER, SELFPAY ==
[2024-11-10 17:51] LABS: CT PCR NOT DETECTED (Not Detect.); NG PCR NOT DETECTED (Not Detect.)
[2024-11-11 08:09] LABS: Syphilis Screen Nonreactive (Nonreactive)
[2024-11-11 08:22] LABS: HBS Num1 71.26 mIU/mL (0-7.99); HBc Num1 0.15 S/CO (0.00-0.79); HIV AB/AG Nonreactive (Nonreactive); HIV Num 1 0.07 S/CO (0.00-0.99); Hepatitis B Core Antibody Nonreactive (Nonreactive); Hepatitis B Surface Antigen Negative (Negative); ~HepC Num1 0.16 S/CO (0.00-0.79); ~Hepatitis B Surface Antibody REACTIVE (Nonreactive); ~Hepatitis C Antibody Nonreactive (Nonreactive)
== END 2024-11-10 11:10 | disposition home or self-care (01) ==
LOC: HO.WFDLDS 11:09
PROVIDERS: Visit Provider Nurse Practitioner Family
DX: Z11.3 Encounter for screening for infections with a predominantly sexual mode of transmission (principal); Z72.89 Other problems related to lifestyle
CPT/HCPCS: 36415; 86704; 86706; 86780; 86803; 87340; 87389; 87491; 87591

== ENCOUNTER 2024-12-27 08:48 | Outpatient (AMB) | payer OTHER, SELFPAY ==
--- NOTE | 2024-12-27 08:57 | MHC.OFFVIS ---
Vital Signs 12/27/24 08:58 Height 5 ft 9 in Weight 202 lb 13.204 oz BMI 29.9 BP 135/70 Blood Pressure Location Lt brachial Position Sitting Pulse 82 Intake Visit Reasons: 1 year follow up Barretts esophagus Intake Note: Solis presents in the office as a 1 year follow up CC: Stiffness in the hips and knees - states it is due to crohns. Wind Energy Project Manager Required: No Allergies dog dander Allergy (Intermediate, Verified 12/27/24 08:58) Unknown ciprofloxacin [From Cipro] Allergy (Mild, Verified 12/27/24 08:58) Unknown HPI Comments Details: 63 y.o M with PMH of known hx of crohns disease, GERD with BE, HTN who is here to establish care. 10/29/23: IBD History: Age/Year: 30s abd cramping, fatigue, diarrhea with bleeding. Location: Right sided colon with rectal sparing Current meds: None Prev meds:Lialda, Asacol, canasa supp PRN Colonoscopy: [facility] 2022 (Roland): Abd surgeries: none Fam hx: sister with crohns. EIM: ? Sacroilitis in 40s. Reports having decade of upper gastrointestinal sx that were attributed to functional GI sx until he landed in hospital in his 30s with GI bleeding and required a scope which confirmed the diagnosis. Has been to many doctors since then including Catarina Bolanos, Terry, Guadalupe, Femi, Roland. Hope reports not available but from previous documentation has had evidence of endoscopic inflammation. Pt hesitant to escalate therapy beyond mesalamine due to side effect profile. Currently: no abd pain, diarrhea, blood in stool. No unintentional weight loss. At an average has 2 flares a year that last a few days. Last hospitalization was in 30s. Also has hx of GERD with BE. Most recent EGD was 2022 - was told no martinez's. Currently not on antisecretory therapy. Frustrated that had conflicting report of GERD/BE but reviewed data available from [facility] including EGD, motiltiy study and Castillo that all CONFIRM gerd with esophagitis. Not a candidate for LINX and TIF. Pt does not wish to pursue surgical fundoplication. 12/29/23: Here for follow up. Records were requested from [facility] but returned with not a pt here notification. Pt notified. Otherwise, no acute GI issues. Lab results reviewed. Pt on pepcid, cont to be reluctant to switch to PPI despite known hx of GERD with esophagitis and ?BE. 12/27/24: Here for a yearly follow up. Main CC is hip pain and knee pain, which progresses during the day. Has prev hx of sacroilitis. Used to see a extended insurance clerk in [facility]. In terms of crohns, no acute issues. Not on any meds, reports as long as he keeps his diet in check his symptoms are minimal. Last fecal calpro 04/[address] from [address] [facility] reviewed. EGD/colo 03/2023. No barretts but did have mild esophagitis. Inflammatory polyps in cecum with mild-mod inflammation in transverse colon. Due for surveillance colo. [facility] Medical History Sleep apnea Cyst of right kidney Carotid artery plaque Atherosclerosis of abdominal aorta Surgical History Hx of colonoscopy History of esophagogastroduodenoscopy (EGD) Hx of hand surgery History of shoulder surgery Family History Father Cancer Mother Arthritis Social History Household Members: None Both parents involved: No Caregiver staying overnight: No Housing: House Are you a primary doggy daycare activities director to a significant other at home: No Do you presently have visiting nurse or other home services: No Alcohol intake: never Patient Tobacco Use Status: Never used Tobacco Tobacco use type: Cigarette e-Cigarette/Vaping Use: Never Used Special leila needs: No service: Yes Current occupational status: retired Cognitive needs: No Hearing needs: No Vision needs: Yes (Patient wears glasses.) Review of Systems Const All systems reviewed & are unremarkable except as noted in HPI and below Physical Exam Vital Signs: Last Vital Signs Pulse 82 12/27/24 08:58 BP 135/70 12/27/24 08:58 BMI result Body Mass Index 29.9 No apparent distress Nonicteric Abdomen soft, nondistended Alert and oriented x3, normal gait Assessment & Plan Assessment & Plan (1) Crohn's colitis: Code(s): K50.10 - Crohn's disease of large intestine without complications Category: Medical (2) Joint pain: Code(s): M25.50 - Pain in unspecified joint Category: Medical (3) Barretts esophagus: Code(s): K22.70 - Martinez's esophagus without dysplasia Category: Medical (4) GERD (gastroesophageal reflux disease): Code(s): K21.9 - Gastro-esophageal reflux disease without esophagitis Category: Medical Plan #Crohns: Appears to be in biochemical remission. As above, pt not on any meds. Treats occ flares with PO pred course. Plan: - [facility] for IBD dysplasia screening due - SUprep Rxed per his preference and instructions reviewed - CRP and fecal calpro ordered - Also reviewed SCD and handout provided - DEXA scan ordered due to prev hx of PO steroid use #GERD w/ BE Records from prev GI reviewed. NO BE on EGD 03/2023 but note made on BE in past. He was again educated that based on endoscopic evidence of esophagitis, motility study and pH capsule study, he DOES have gerd with hx of BE and should be on antisecretory therapy saqib PPI to mitigate the albeit small but finite risk of progression to adenoca. He continues to take pepcid PRN and would like to hold off ppi use until next endoscopic evaluation - due 03/2026. # Joint pain Typically inflammatory pain worst in the morning but based on prev hx of sacroilitis reported and known crohns will get XR eval. Plan: - XR knees b/l - XR sacroiliac b/l - May need rheum referral based on results Follow up after colo Orders: Orders XR Knee Feliz 1or 2V Today M25.50 - Pain in unspecified joint XR sacroiliac joint 1-2V Today M25.50 - Pain in unspecified joint XR DEXA axial skeleton Today K50.10 - Crohn's disease of large intestine without complications, M25.50 - Pain in unspecified joint Complete Blood Count no Diff Today K50.10 - Crohn's disease of large intestine without complications Comprehensive Met. Panel Today K50.10 - Crohn's disease of large intestine without complications Calprotectin, Fecal Today K50.10 - Crohn's disease of large intestine without complications C Reactive Protein Today K50.10 - Crohn's disease of large intestine without complications Medications: New sodium,potassium,mag sulfates 17.5-3.13-1.6 gram (Suprep Bowel Prep Kit) for colonoscopy prep, as per instructions 354 mL 0RF Coding Level of Care Code Est Pt Level 4 (38766) Diagnoses Crohn's colitis K50.10 Joint pain M25.50 Barretts esophagus K22.70 GERD (gastroesophageal reflux disease) K21.9
[2024-12-27 08:58] VITALS: BP 135/70; PULSE 82; BMI 29.9
--- OUTSIDE RECORDS SUMMARY | 2024-12-27 09:14 | XMS_ITS | Patient Health Record ---
Author Organization [facility] Address [address] [place] [phone] Care Team Providers Care Tank Filler Name Role Phone JAY BENEDICT Primary [...] W/U Status Risk SNOMED Code Notes Problem Rhinosinusitis (J32.9) Active confirmed 502779198 Problem Memory change (R41.3) Active confirmed 979687905 Problem Pre-syncope (R55) Active confirmed 4274 60382 Problem Atherosclerosis (I70.90) Active confirmed Atherosclerosis (47994699) Problem Prostate cancer screening (Z12.5) Active confirmed Screening for malignant neoplasm of prostate (025498896) Problem Gastroesophageal reflux disease, unspecified whether esophagitis present (K21.9) Active confirmed 540400203 Problem Hypertension, unspecified type (I10) Active confirmed 02978636 Problem ROEL (obstructive sleep apnea) (G47.33) Active confirmed 12666265 Problem Hypogonadism in male (E29.1) Active confirmed Male hypogonadi sm (41521755) Problem Arthritis (M19.90) Active confirmed Art hritis (7044905) Problem Hypothyroidism, unspecified type (E03.9) Active confirmed 00099155 Problem Anxiety (F41.9) Active confirmed Anxiet y (06175749) Problem Hyperlipidemia, unspecified hyperlipidemia type (E78.5) Active confirmed 05745557 Problem Essential hypertension (I10) Active confirmed 14471623 Problem Prediabetes (R73.03) Active confirmed 7 48260287 Problem Encounter for screening for lipoid disorders (Z13.220) Active confirmed 442811833 Problem Encounter for general adult medical examination without abnormal findings (Z00.00) Active confirmed 773387360 Problem Crohn's disease, unspecified, without complications (K50.90) Active confirmed Crohn's disease (84609860) Problem Chronic sinusitis, unspecified (J32.9) Active confirmed Chronic sinusitis (00668148) Problem Chronic rhinitis (J31.0) Active confirmed Chronic rhiniti s (07633276) Problem Insomnia, unspecified (G47.00) Active confirmed Insomni a (907085065) Problem Vitamin D deficiency, unspecified (E55.9) Active confirmed Vitamin D deficiency (48863912) Problem 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 Hemoglobinopath y (79842646) Encounters Encounter Location Date Provider Diagnosis [address] [facility] [address] [place] [address] 03/16/2024 JAY BENEDICT [address] [facility] [address] [place] [address] 03/08/2024 JAY BENEDICT [facility] [address] [facility] [address] [place] [address] 03/11/2024 JAY BENEDICT [facility] [address] [place] [address] 05/12/2024 JAY BENEDICT [facility] [address] [place] [address] 05/12/2024 JAY BENEDICT PLAN OF TREATMENT Pending [...] HIGH SENSITIVITY 09/19/2023 FERRITIN 09/19/2023 HEMOGLOBIN A1C 08/04/2018 HEMOGLOBIN A1C 09/19/2023 HEMOGLOBIN A1C 11/20/2021 LIPID PANEL 07/18/2020 LIPID PANEL 11/20/2021 LIPID PANEL 08/04/2018 LIPID PANEL 09/19/2023 MAGNESIUM 09/19/2023 PSA, SCREEN [...] Insured Coverage Start Date Coverage End Date [employer]) [address] JEN ALV[place]Z [address] [phone] [id number] EFE FINLEY Self - patient is the insured MEDICAL (GENERAL) HISTORY Medical History History ICD Code Crohns SI Kidney stones (uric acid) Surgical History Surgery Date(Month/Year) deviated septum repair lasik bilateral shoulder ac joint repair bilateral hands tendon repair right hip tonsillectomy
--- OUTSIDE RECORDS SUMMARY | 2024-12-27 09:14 | XMS_ITS ---
Author Organization [facility] Address [address] [place] [address] Care Team Providers Care Infection Control Nurse Name Role Phone JAY BENEDICT Primary Care Provider [phone] REASON FOR VISIT Billing Ques Encounters Encounter Location Date Provider Diagnosis [facility] [address] [place] [address] 05/12/2024 JAY BENEDICT PLAN OF TREATMENT No Information Progress Notes * EFE FINLEY WDOB: 2 (64 yo M)Acc No.[id number]:05/12/2024 Patient:??EFE FINLEY :1960?Age:64 Y?Sex:Haylee wren Address:[address] [place], [place] [address] [place] [address] * true * Date:??
--- OUTSIDE RECORDS SUMMARY | 2024-12-27 09:14 | XMS_ITS | Clinical Summary ---
Author Organization [facility] Address [address] [place] [address] Care Team Providers Care Steel Layer Name Role Phone Regi Kelley MD Primary Care Provider [phone] Allergies Active Allergy Reactions Criticality Noted Date Comments Ciprofibrate Diarrhea Low 12/04/2020 Ciprofloxacin GI Intolerance/Nausea/Vomiting,Unknown/Pa tient and Family Unable to Define Medium 09/13/2022 Nsaids Unknown/Patient and Family Unable to Define Medium 02/06/2023 Medications Cholecalciferol (VITAMIN D3) 2000 UNITS Cap capsule Vitamin D 2000 UNIT Oral Capsule 1 TAB DAILY Refills: 0 Active Active valsartan (DIOVAN) 80 MG tablet 3 Active Zinc 50 MG Tab 1 tablet Activ e tadalafil (CIALIS) 20 MG tablet 1 tablet 2 Active magnesium gluconate (MAGONATE) 500 (27 Mg) MG tablet Take 500 mg by mouth 2 (two) times a day. Active Menaquinone-7 (K2 PO) Take by mouth. Activ e Ascorbic Acid (vitamin C) 1000 MG tablet Take 1,000 mg by mouth daily. Active famotidine (PEPCID) 40 MG tabletIndication s:Pak's esophagus without dysplasia Take 1 tablet (40 mg total) by mouth nightly. 90 tablet 1 3 Active Sodium Sulfate-Mag Sulfate-KCl (Sutab) 3921-561-680 MG TabIndications:C rohn's disease of large intestine without complication (HCC) Take 12 tablets by mouth once. One dose of 12 tablets on the Day Prior to procedure. One dose of 12 tablets on the Day Of the procedure. BIN: [id number] PCN: CN GROUP: [id number] ID: [id number] 24 tablet 3 Active mesalamine (LIALDA) 1.2 g tabletIndication s:Crohn's disease of large intestine without complication (HCC) Take 4 tablets (4.8 g total) by mouth daily. 120 tablet 3 3 Active Active Problems Problem Noted Date Diagnosed [...] Assigned at Male 11/04/2022 9:57 AM EDT Legal Sex Male 6:42 PM EST Gender Identity Male 11/04/2022 9:57 AM EDT [...] Zoster (Shingles) Vaccine (1 of 2) 2012 COVID-19 Vaccine (1 - 2023-2 5 season) 2024 Influenza Vaccine 03/25/2025 Colonoscopy 03/25/2033 03/25/2023 RSV Vaccine 60 years and old er and Patients (1 - 1-dose 75+ series) 2037 Hepatitis B Vaccines Aged Out No long er eligible based on patient's age to complete this topic Insurance [facility] [employer] Care Teams Steel Layer Relationship Specialty Start Date End Date Regi Kelley MD [address] [place] [address] PCP - General Internal Medicine 06/04/21
--- OUTSIDE RECORDS SUMMARY | 2024-12-27 09:14 | XMS_ITS | Clinical Summary ---
Author Organization [facility] Address [address] [place] [address] Care Team Providers Care Adjunct Professor Of English Name Role Phone Unavailable Primary Care Provider [...] topic Solis Thayer Personal/Family Self 1960 [address] [facility] [place] [address]
--- OUTSIDE RECORDS SUMMARY | 2024-12-27 09:14 | XMS_ITS | Encounter Summary ---
Author Organization [facility] Address [address] [place] [address] Care Team Providers Care Television Receiver Analyzer Name Role Phone Regi Kelley MD Primary Care Provider [phone] Encounter Details Date Type Department Care Team (Late st Contact Info) Description 03/26/2023 Scanned Document [facility] [address] [place] [phone] Lebron Watkins MD [address] [place] [address] Social History Tobacco Use Types Packs/Day Years [...] * PATHOLOGY REPORT (03/26/2023 1:03 PM EDT) us Lebron Watkins MD PATHOLOGY/CYTOLOGY ORDERABLES Final Result documented in this encounter Visit Diagnoses Not on filedocumented in this encounter Care Teams Television Receiver Analyzer Relationship Specialty Start Date End Date Regi Kelley MD [address] [place] [address] PCP - General Internal Medicine 06/04/21 documented as of this encounter
--- OUTSIDE RECORDS SUMMARY | 2024-12-27 09:14 | XMS_ITS | Clinical Summary ---
Author Organization [facility] Address [address] [place] [address] Care Team Providers Care Vocal Performer Name Role Phone Regi Kelley MD Primary Care Provider [phone] Social History Tobacco Use Types Packs/Day Years [...] - 2023-2 5 season) 2024 Influenza Vaccine (Season Ended) 2025 RSV Immunization Adult Patie nts (1 - 1-dose 75+ series) 2037 HIB [...] age to complete this topic Meningococcal B Vaccine Aged Out No l onger eligible based on patient's age to complete [...] age to complete this topic Care Teams Vocal Performer Relationship Specialty Start Date End Date Regi Kelley MD PCP - General Internal Medicine 07/09/21
--- OUTSIDE RECORDS SUMMARY | 2024-12-27 09:14 | XMS_ITS | Referral Summary ---
Author Organization [facility] Address [address] [place] [address] Care Team Providers Care Mechanical Insulator Name Role Phone Regi Kelley Primary Care Provider [phone] Allergies Active Allergy Reactions Criticality Noted Date [...] Not on file Procedures * Due to [place] alike law, this organization might not be sharing negative HIV tests. Procedure Name Priority Date/Time Associated Diagnosis Comments COLONOSCOPY 05/22/2017 8:30 AM EDT from Last 3 Months or Most Recently Relevant to Health Maintenance Results * Due to [place] alike law, this organization might not be sharing [...] Documents on File Type Date Recorded Patient Textile Pin Worker Expl anation Advance Directive 05/17/2014 12:00 AM Adva nce Care Directives Advance Directive 03/10/2012 12:00 AM cherie sales Dec Aramis (Adv.Dir) Care Teams Mechanical Insulator Relationship Specialty Start Date End Date KelleyRegi oneill [address] [place] [address] PCP - General 07/26/20
--- OUTSIDE RECORDS SUMMARY | 2024-12-27 09:14 | XMS_ITS | Clinical Summary ---
Author Organization [facility] Address [address] [place] [address] Care Team Providers Care Law Tutor Name Role Phone Regi Kelley Primary Care Provider [phone] Allergies Active Allergy Reactions Criticality Noted Date [...] COVID-19 Vaccine (1 - 2023- season) 2024 Alcohol/Substance Use Screening 08/25/2024 Influenza Vaccine (Season Ended) 2025 07/19/2020 RSV Vaccine (60+ years old and patients) (1 - 1-dose 75+ series) 2037 Hepatitis B Vaccines Aged Out No long er eligible based on patient's age to complete this topic Procedures * Due to [place] [employer] law, this organization might not be sharing negative HIV tests. Procedure Name Priority Date/Time Associated Diagnosis Comments COLONOSCOPY 05/22/2017 8:30 AM EDT from Last 3 Months or Most Recently Relevant to Health Maintenance Results * Due to [place] [employer] law, this organization might not be sharing [...] Most Recently Relevant to Health Maintenance Insurance [facility] Advance Directives Documents on File Type Date Recorded Patient Pie Icer Machine Expl anation Advance Directive 05/17/2014 12:00 AM Adva nce Care Directives Advance Directive 03/10/2012 12:00 AM cherie sales Dec Making (Adv.Dir) Care Teams Law Tutor Relationship Specialty Start Date End Date Regi Kelley [address] [place] [address] PCP - General 07/26/20
--- OUTSIDE RECORDS SUMMARY | 2024-12-27 09:14 | XMS_ITS ---
Author Organization [facility] Address [address] [place] [address] Care Team Providers Care Mill Control Operator Name Role Phone JAY BENEDICT Primary Care Provider [phone] REASON FOR VISIT Med Recs Encounters Encounter Location Date Provider Diagnosis [facility] [address] [place] [address] 05/12/2024 JAY BENEDICT PLAN OF TREATMENT No Information Progress Notes * EFE FINLEY WDOB: 2 (64 yo M)Acc No.[id number]:05/12/2024 Patient:??EFE FINLEY :1960?Age:64 Y?Sex:Haylee wren Address:[address] [place] [address] [place] [address] * true * Date:??
--- OUTSIDE RECORDS SUMMARY | 2024-12-27 09:15 | XMS_ITS ---
Author Organization [facility] Address [address] [place] [address] Care Team Providers Care Pipe Line Walker Name Role Phone JAY KELLEY Primary Care Provider [phone] Encounters Encounter Location Date Provider Diagnosis [address] [facility] [address] [place] [address] 03/16/2024 JAY KELLEY PLAN OF TREATMENT No Information Progress Notes * EFE FINLEY WDOB: 2 (64 yo M)Acc No.[id number]:03/16/2024 CPE Patient:??EFE FINLEY Provider:??Jay Kelely MD :1960?Age:64 Y?Sex:Haylee wren Date:03/16/2024 Address:[address] [place], [place] [address] Subjective: * Chief Complaints: * ? * Medical History:?? Objective: Assessment: Plan: * Treatment: * Images: Billing Information: * Visit Code:?? * Procedure Codes:?? Care Plan Details* * Sign off status: Pending * Provider:??Jay Kelley MD Date:??03/16
== END 2024-12-27 10:52 | disposition home or self-care (01) ==
LOC: HO.HGI 08:49
PROVIDERS: PCP Family Medicine; Visit Provider Internal Medicine
DX: K50.10 Crohn's disease of large intestine without complications (principal); M25.50 Pain in unspecified joint; K22.70 Barrett's esophagus without dysplasia; K21.9 Gastro-esophageal reflux disease without esophagitis
CPT/HCPCS: 99214

== ENCOUNTER 2025-01-06 08:22 | Outpatient (REF) | payer OTHER, SELFPAY ==
--- OUTSIDE RECORDS SUMMARY | 2025-01-06 08:41 | XMS_ITS | Clinical Summary ---
Author Organization [facility] Address [address] [place] [address] Care Team Providers Care Honey Liquefier Name Role Phone Regi Kelley Primary Care Provider [phone] Allergies Active Allergy Reactions Criticality Noted Date [...] complete this topic Procedures * Due to [place] [employer] law, this organization might not be sharing negative HIV tests. Procedure Name Priority Date/Time Associated Diagnosis Comments COLONOSCOPY 05/22/2017 8:30 AM EDT from Last 3 Months or Most Recently Relevant to Health Maintenance Results * Due to [place] [employer] law, this organization might not be sharing [...] Most Recently Relevant to Health Maintenance Insurance [facility] Advance Directives Documents on File Type Date Recorded Patient Hot Strip Finisher Expl anation Advance Directive 05/17/2014 12:00 AM Adva nce Care Directives Advance Directive 03/10/2012 12:00 AM cherie sales Dec Making (Adv.Dir) Care Teams Honey Liquefier Relationship Specialty Start Date End Date Regi Kelley [address] [place] [address] PCP - General 07/26/20
--- OUTSIDE RECORDS SUMMARY | 2025-01-06 08:42 | XMS_ITS | Clinical Summary ---
Author Organization [facility] Address [address] [place] [address] Care Team Providers Care Store Warehouse Associate Name Role Phone Regi Kelley MD Primary Care Provider [phone] Allergies Active Allergy Reactions Criticality Noted Date [...] 1 3 Active Sodium Sulfate-Mag Sulfate-KCl (Sutab) 4598-508-670 MG TabIndications:C rohn's disease of large intestine without complication (HCC) Take 12 tablets by mouth once. One dose of 12 tablets on the Day Prior to procedure. One dose of 12 tablets on the Day Of the procedure. BIN: [id number] PCN: CN GROUP: [id number] ID: [id number] 24 tablet 3 Active mesalamine (LIALDA) 1.2 [...] patient's age to complete this topic Insurance [facility] Care Teams Store Warehouse Associate Relationship Specialty Start Date End Date Regi Kelley MD [address] [place] [address] PCP - General Internal Medicine 06/04/21
--- OUTSIDE RECORDS SUMMARY | 2025-01-06 08:42 | XMS_ITS | Patient Health Record ---
Author Organization [facility] Address [address] [place] [address] Care Team Providers Care Certified Pharmacy Tech Name Role Phone JAY BENEDICT Primary Care Provider [phone] Allergies Allergen (clinical drug ingredient) Drug/Non Drug Allergy documented on EMR Reaction Allergy Type Onset Date Status ciprofloxacin Cipro Unknown Drug Allergy Act ariel Reason For Referral No Information Medications Medication SIG (Take, Route, Frequency, Duration) Notes [...] TAKE 1 TABLET DAILY for 90 Active Immunizations Vaccine Route Administration Date Status Comme nts Zoster IM Intramuscular 11/30/2020 Administered Social History Tobacco Use: Social History Observation Description Date Details (start date - stop date) Never Smoker NA - NA Tobacco Use/Smoking Question Answer Notes Are you a nonsmoker Problems Problem Type SNOMED Code ICD Code Onset Dates Problem Status W/U Status Risk Notes Problem 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 Problem Vitamin D deficiency (66027992) Vitamin D deficiency, unspecified (E55.9) Active confirmed Problem Insomnia (849712315) Insomnia, unspecified (G47.00) Active confirmed Problem Chronic rhinitis (21107738) Chronic rhinitis (J31.0) Active confirmed Problem Chronic sinusitis (18972654) Chronic sinusitis, unspecified (J32.9) Active confirmed Problem Crohn's disease (90564551) Crohn's disease, unspecified, without complications (K50.90) Active confirmed Problem 542453632 Encounter for general adult medical examination without abnormal findings (Z00.00) Active confirmed Problem 268296868 Encounter for screening for lipoid disorders (Z13.220) Active confirmed Problem 126535394 Prediabetes (R73.03) Active confirmed Problem 94588987 Essential hypertension (I10) Active confirmed Problem 44137163 Hyperlipidemia, unspecified hyperlipidemia type (E78.5) Active confirmed Problem Anxiety (05556569) Anxiety (F41.9) Active confi rmed Problem 26120825 Hypothyroidism, unspecified type (E03.9) Active confirmed Problem Arthritis (0573863) Arthritis (M19.90) Active confirmed Problem Male hypogonadism (99958201) Hypogonadism in male (E29.1) Active confirmed Problem 64607413 ROEL (obstructive sleep apnea) (G47.33) Active confirmed Problem 44626161 Hypertension, unspecified type (I10) Active confirmed Problem 789574467 Gastroesophageal reflux disease, unspecified whether esophagitis present (K21.9) Active confirmed Problem Screening for malignant neoplasm of prostate (807556498) Prostate cancer screening (Z12.5) Active confirmed Problem Atherosclerosis (27675103) Atherosclerosis (I70.90) Active confirmed Problem 226257347 Pre-syncope (R55) Active confirmed Problem 276736067 Memory change (R41.3) Active confirmed Problem 175621680 Rhinosinusitis (J32.9) Active confirmed Encounters Encounter Location Date Provider Diagnosis [address] [facility] [address] [place] [address] 03/08/2024 [facility] [address] [facility] [address] [place] [address] 03/11/2024 [facility] [address] [place] [address] 05/12/[address] [facility] [address] [facility] [place] [address] 05/12/2024 JAY BENEDICT Plan Of Treatment Pending Test Test Name Order Date Echocardiogram [...] Start Date Coverage End Date [employer]) [address] [place] [address] [phone] [id number] EFE FINLEY Self - patient is the insured Medical (General) History Medical History History ICD Code Crohns SI Kidney stones (uric acid) Surgical History Surgery Date(Month/Year) deviated septum repair lasik bilateral shoulder ac joint repair bilateral hands tendon repair right hip tonsillectomy
--- OUTSIDE RECORDS SUMMARY | 2025-01-06 08:42 | XMS_ITS | Referral Summary ---
Author Organization [facility] Address [address] [place] [address] Care Team Providers Care Painter Touch Up Name Role Phone Regi Kelley Primary Care Provider Allergies Active Allergy Reactions [...] on file Procedures * Due to [place] [employer] law, this organization might not be sharing negative HIV tests. Procedure Name Priority Date/Time Associated Diagnosis Comments COLONOSCOPY 05/22/2017 8:30 AM EDT from Last 3 Months or Most Recently Relevant to Health Maintenance Results * Due to [place] [employer] law, this organization might not be sharing [...] Documents on File Type Date Recorded Patient Manager Of Sustainability Expl anation Advance Directive 05/17/2014 12:00 AM Adva nce Care Directives Advance Directive 03/10/2012 12:00 AM cherie sales Dec Aramis (Adv.Dir) Care Teams Painter Touch Up Relationship Specialty Start Date End Date KelleyRegi oneill [address] [place] [address] PCP - General 07/26/20
--- OUTSIDE RECORDS SUMMARY | 2025-01-06 08:42 | XMS_ITS | Clinical Summary ---
Author Organization [facility] ity Address [address] [place] [address] Care Team Providers Care Medical Records Coder Name Role Phone Regi Kelley MD Primary Care Provider [phone] Social History Tobacco Use Types Packs/Day Years [...] age to complete this topic Care Teams Medical Records Coder Relationship Specialty Start Date End Date Regi Kelley MD PCP - General Internal Medicine 07/09/21
--- OUTSIDE RECORDS SUMMARY | 2025-01-06 08:42 | XMS_ITS | Clinical Summary ---
Author Organization [facility] Address [address] [place] [address] Care Team Providers Care Telephone Solicitor Supervisor Name Role Phone Unavailable Primary Care Provider [...] topic Solis Thayer Personal/Family Self 1960 [address] [facility] [place] [address]
--- OUTSIDE RECORDS SUMMARY | 2025-01-06 08:42 | XMS_ITS | Encounter Summary ---
Author Organization [facility] Address [address] [place] [address] Care Team Providers Care Terrazzo Polisher Name Role Phone Regi Kelley MD Primary Care Provider [phone] Encounter Details Date Type Department Care Team (Late st Contact Info) Description 03/26/2023 Scanned Document [facility] [address] [place] [phone] Lebron Watkins MD [address] [place] [address] Social History Tobacco Use Types Packs/Day Years [...] on filedocumented in this encounter Care Teams Terrazzo Polisher Relationship Specialty Start Date End Date Regi Kelley MD [address] [place] [address] PCP - General Internal Medicine 06/04/21 documented as of this encounter
--- OUTSIDE RECORDS SUMMARY | 2025-01-06 08:42 | XMS_ITS ---
Author Organization [employer] [facility] Address [address] [place] [address] Care Team Providers Care Supervisor Pleating Name Role Phone JAY KELLEY Primary Care Provider Encounters Encounter Location Date Provider Diagnosis [address] [address] 03/16/2024 JAY KELLEY Plan Of Treatment No Information Progress Notes * EFE FINLEY WDOB: 2 (64 yo M)Acc No.[id number]:03/16/2024 CPE Patient:?EFE FINLEY Provider:?Jay Kelley MD :1960???Age:64 Y???Sex:Male Trey e:03/16/2024 Address:[address] [place], [place] [address] Subjective: * Chief Complaints: * ??? * Medical History:? Objective: * Vitals:? Assessment: Plan: * Treatment: * Billing Information: * Visit Code:? * Procedure Codes:? Care Plan Details* * Electronic signature of STEPHEN KELLEY MD on 01/06/2025 at 08:41 AM EDT Sign off status: Pending * Provider:?Jay Kelley MD Date:? 024 Generated for Printi ng/Fahernestog/eTransmitting on:?01/06/2025 08:41 AM EDT
--- OUTSIDE RECORDS SUMMARY | 2025-01-06 08:42 | XMS_ITS | Continuity of Care Document ---
Author Organization [facility] Address [address] [facility], [address] [place] [address]- Care Team Providers Care Advertising Campaign Manager Name Role Phone Warren MACHADO, Regi Koehler Primary Care Physician Encounter 12/28/24 - 01/04/25 [facility] [address], [address] [place] [address]- Attending Physician: Jeovanny Hector Admitting Physician: Jeovanny Hector Referring Physician: Jeovanny Hector Encounter Type: OutPatient One Time Allergies, Adverse Reactions, Alerts Substance Criticality Severity Reaction Reaction Severity Status Cipro Active NSAIDs Active Medications Calcium Citrate = 500 mg, By Mouth, Daily, 0 Refills, Maintenance, 03/27/22 12:36:00 PM EDT, Partial fill upon patient request if the prescription is for a schedule II opioid drug. Start Date: 03/27/22 Status: Ordered Repeat number: 1 Lialda 1.2 g oral delayed release tablet 4 tablet = 4.8 Gm, By Mouth, Daily, # 224 tablet, 5 Refills, Maintenance, 11/11/22 11:38:00 AM EDT, EC Tablet, [facility], Partial fill upon patient request if the prescription is for a schedule II opioid drug., 4 tablet By Mouth Daily, 175, cm, 07/01/22 15:04:00 EST, Height, 89, kg, 03/27/22 12:38:00 EDT, Dry Weight Start Date: 11/11/22 Status: Ordered Quantity: 224.0 Unit: tablet Repeat number: 6 Magnesium Oxide = 400 mg, By Mouth, Maintenance, 12/25/20 3:54:00 PM EDT, Partial fill upon patient request if the prescription is for a schedule II opioid drug. Start Date: 12/25/20 Status: Ordered Repeat number: 1 pantoprazole 40 mg oral delayed release tablet 1 tablet = 40 mg, By Mouth, Daily, # 90 tablet, 3 Refills, Maintenance, 03/07/22 11:23:00 AM EDT, ECTablet, 175.2, cm, 12/25/21 13:43:00 EDT, Height, 89.6, kg, 05/11/20 13:13:00 EDT, Dry Weight Start Date: 03/07/22 Stop Date: 03/02/23 Status: Ordered Quantity: 90.0 Unit: tablet Repeat number: 4 valsartan 80 mg oral tablet 80 mg, 1, tablet, By Mouth, Daily, # 30 tablet, Refills 0, Maintenance, 12/25/21 1:48:00 PM EDT, Partial fill upon patient request if the prescription is for a schedule II opioid drug. Start Date: 12/25/21 Status: Ordered Quantity: 30.0 Unit: tablet Repeat number: 1 Vitamin C By Mouth, Daily, 0 Refills, Maintenance, 03/23/20 2:43:00 PM EDT Start Date: 03/23/20 Status: Ordered Repeat number: 1 Vitamin D3 2000 intl units oral capsule 1 capsule = 2,000 International_Units, By Mouth, Daily, 0 Refills, Maintenance, 03/07/14 2:21:53 PM EDT Start Date: 03/07/14 Status: Ordered Repeat number: 1 Problem List Condition Confirmation Course Effective Dates Status H ealth Status Informant Neck arthritis Confirmed Active Crohn's disease of colon Confirmed Active GERD (gastroesophageal reflux disease) Confirmed Active Prostate cancer genetic susceptibility Confirmed Active Hematospermia Confirmed Active Joint pain, hip Confirmed Active Right groin pain Confirmed Active Obstructive sleep apnea Confirmed Active Results Radiology Reports * Exam Date Time Procedure Performing Provider Status 12/28/24 10:34 AM US Renal Bladder Dot Spears; Unique (Verified) Notes: (US Renal Bladder) Reason For Exam: Calculus of kidney RESULT: US Renal Bladder US Renal Bladder Study performed at [facility] [address] [place] [address]. Reason: Calculus of kidney. COMPARISON: 12/18/2023; CT Abdomen 11/26/2022. FINDINGS: Right kidney: 11.4 cm in length. No hydronephrosis. Normal parenchymal thickness and echotexture. No stones. No suspicious mass. Simple appearing exophytic cyst in the interpolar region measures 0.6 x 0.6 x 0.5 cm, similar to prior. Left kidney: 12.9 cm in length. No hydronephrosis. Normal parenchymal thickness and echotexture. Echogenic 0.3 cm focus in the interpolar region with mild posterior acoustic shadow. Exophytic cystic lesion with linear internal echoes measuring 1.9 x 1.8 x 2.1 cm in the lower pole, similar in size to comparison CT and previously characterized as a complicated cyst. Urinary bladder: Normal morphology. No stone, mass, wall thickening or debris. Prevoid volume: 242 cc. Postvoid urinary bladder not assessed as patient declined to void at the time of the examination. Prostate: 4.0 x 4.2 x 4.8 cm, volume 40.8 cc. IMPRESSION: Nonobstructing 0.3 cm left renal calculus. No sonographically apparent right renal calculi. No hydronephrosis. Stable 2.1 cm exophytic left renal lesion, previously characterized as a complicated cyst on CT. Unchanged 0.6 cm simple right renal cyst. WSN: [id number] Ordering Physician: Jeovanny Hutchinson Dictated By: Len Wright MD Dictated Date/Time: 12/28/24 3:29 pm Reviewed By: Len Wright MD Signed By: Len Wright MD Signed Date/Time: 12/28/24 3:29 pm Transcribed By: KOKO Transcribed Date/Time: 12/28/24 1:48 pm Social History Social History Type Response Smoking Status Never (less than 100 in lifetime) entered on: 12/15/19 Sex Sex Representation Male (finding) Patient Care team information Care Team Personnel Name: Regi Kelley MD Position: S Physician - Primary Care Member Role: PCP Address: [address] [place] [address], [address] Primary Care and Weight Management [address] Telecom: Care Team Related Persons Name: YAMILETH FINLEY Name: JAZMYNE CARDOZA Name: LISANDRO PALMER Insurance Providers Guarantor name: EFE FINLEY Health Plan Information #: 1 Payer: [facility] Member Number: [id number] Policy Number: NA Group Number: [id number] Health Plan Information #: 2 Payer: [facility] Member Number: [id number] Policy Number: NA Group Number: [id number]
[2025-01-06 11:52] LABS: Hematocrit 47.3 % (42.0-52.0); Hemoglobin 16.2 g/dl (14.0-18.0); Mean Corpuscular HGB Conc 34.2 g/dl (31.0-36.0); Mean Corpuscular Hemoglobin 32.1 pg (27.0-33.0); Mean Corpuscular Volume 93.7 fL (80.0-98.0); Mean Platelet Volume 10.2 fL (9.4-12.4); Platelet Count 225 X10*3/uL (160-400); Red Blood Count 5.05 X10*6/uL (4.60-5.80); Red Cell Distribution Width 12.1 % (11.0-16.0); White Blood Count 7.1 X10*3/uL (4.8-10.8)
[2025-01-06 12:22] LABS: Alanine Aminotransferase 22 U/L (0-40); Albumin Level 4.1 g/dL (3.5-5.0); Alkaline Phosphatase 55 U/L (39-117); Anion Gap 12 (12-20); Aspartate Amino Transferase 27 U/L (5-37); Bilirubin Total 0.8 mg/dL (0.0-1.0); Blood Urea Nitrogen 19 mg/dL (9-16); C Reactive Protein < 0.10 mg/dL (< or = 0.50); Calcium 9.4 mg/dL (8.4-10.2); Carbon Dioxide 28 mmol/L (22-29); Chloride 106 mmol/L (96-108); Estimated Glomerular Filt Rate > 60; Glucose Random 91 mg/dL (60-115); Potassium 4.3 mmol/L (3.3-5.1); Sodium 142 mmol/L (135-145); Total Protein 7.1 g/dL (6.5-8.0)
== END 2025-01-06 08:23 | disposition home or self-care (01) ==
LOC: HO.WFDLDS 08:22
PROVIDERS: Visit Provider Internal Medicine
DX: K50.10 Crohn's disease of large intestine without complications (principal)
CPT/HCPCS: 36415; 80053; 85027; 86140

== ENCOUNTER 2025-01-10 09:10 | Outpatient (REF) | payer OTHER, SELFPAY ==
--- NOTE | ~2025-01-10 | XR_ITS ---
XR KNEE FELIZ 3V HISTORY: Bilateral knee pain. COMPARISON: None relevant. TECHNIQUE: AP view bilateral knees standing, and lateral views both knees. FINDINGS: RIGHT KNEE: No fracture, dislocation, or suspicious bone lesion. Joint spaces appear normal in all 3 compartments. Minimal spurring of the tibial spines. No evidence of joint effusion. Soft tissues appear normal. LEFT KNEE: No fracture, dislocation, or suspicious bone lesion. Joint spaces appear normal in all 3 compartments. Minimal spurring of the tibial spines. No evidence of joint effusion. Soft tissues appear normal. XR/XR Knee Feliz 1or 2V IMPRESSION: 1. Essentially normal knees bilaterally. Electronically signed by: Nilton Vlilarreal MD 01/10/2025 10:20 AM EDT
--- NOTE | ~2025-01-10 | XR_ITS ---
EXAMINATION: XR SACROILIAC JOINTS CLINICAL INFORMATION: M25.50 - Pain in unspecified joint COMPARISON: None available. TECHNIQUE: 3 views of the sacroiliac joints FINDINGS: Normal bone mineralization. No fracture or bone lesion. Alignment is anatomic. SI joints demonstrate mild to moderate degenerative arthritis bilaterally without evidence of erosions or inflammatory arthropathy. Mild periarticular sclerosis with mild spurring bilaterally. There is a bridging osteophyte in the superior fibrous SI joint joint on the left. No soft tissue abnormalities aside from vasectomy clips. 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 No evidence of inflammatory arthropathy. Electronically signed by: Nilton Villarreal MD 01/10/2025 10:18 AM EDT
--- OUTSIDE RECORDS SUMMARY | 2025-01-10 09:22 | XMS_ITS | Clinical Summary ---
Author Organization [facility] Address [address] [place] [address] Care Team Providers Care Director Account Management Name Role Phone Regi Kelley MD Primary Care Provider [phone] Allergies Active Allergy Reactions Criticality Noted Date [...] 1 3 Active Sodium Sulfate-Mag Sulfate-KCl (Sutab) 7920-265-603 MG TabIndications:C rohn's disease of large intestine without complication (HCC) Take 12 tablets by mouth once. One dose of 12 tablets on the Day Prior to procedure. One dose of 12 tablets on the Day Of the procedure. BIN: [id number] PCN: CN GROUP: [id number] ID: [id number] 24 tablet 3 Active mesalamine (LIALDA) 1.2 [...] patient's age to complete this topic Insurance [facility] Care Teams Director Account Management Relationship Specialty Start Date End Date Regi Kelley MD [address] [place] [address] PCP - General Internal Medicine 06/04/21
--- OUTSIDE RECORDS SUMMARY | 2025-01-10 09:22 | XMS_ITS | Clinical Summary ---
Author Organization [facility] ity Address [address] [place] [address] Care Team Providers Care Tyre Builder Name Role Phone Regi Kelley MD Primary Care Provider [phone] Social History Tobacco Use Types Packs/Day Years [...] age to complete this topic Care Teams Tyre Builder Relationship Specialty Start Date End Date Regi Kelley MD PCP - General Internal Medicine 07/09/21
--- OUTSIDE RECORDS SUMMARY | 2025-01-10 09:22 | XMS_ITS | Clinical Summary ---
Author Organization [facility] Address [address] [place] [address] Care Team Providers Care Pelletising Extruder Operator Name Role Phone Regi Kelley Primary [...] complete this topic Procedures * Due to [place] [employer] law, this organization might not be sharing negative HIV tests. Procedure Name Priority Date/Time Associated Diagnosis Comments COLONOSCOPY 05/22/2017 8:30 AM EDT from Last 3 Months or Most Recently Relevant to Health Maintenance Results * Due to [place] [employer] law, this organization might not be sharing [...] Most Recently Relevant to Health Maintenance Insurance [facility] Advance Directives Documents on File Type Date Recorded Patient Locomotive Boilermaker Expl anation Advance Directive 05/17/2014 12:00 AM Adva nce Care Directives Advance Directive 03/10/2012 12:00 AM cherie sales Dec Making (Adv.Dir) Care Teams Pelletising Extruder Operator Relationship Specialty Start Date End Date Regi Kelley [address] [place] [address] PCP - General 07/26/20
--- OUTSIDE RECORDS SUMMARY | 2025-01-10 09:22 | XMS_ITS | Clinical Summary ---
Author Organization [facility] Address [address] [place] [address] Care Team Providers Care Auto Machinist Name Role Phone Unavailable Primary Care Provider [...] topic Solis Thayer Personal/Family Self 1960 [address] [facility] [place] [address]
--- OUTSIDE RECORDS SUMMARY | 2025-01-10 09:22 | XMS_ITS | Referral Summary ---
Author Organization [facility] Address [address] [place] [address] Care Team Providers Care Management Assistant Name Role Phone Regi Kelley Primary Care Provider [phone] Allergies Active Allergy Reactions Criticality Noted Date [...] Not on file Procedures * Due to [place] [employer] law, this organization might not be sharing negative HIV tests. Procedure Name Priority Date/Time Associated Diagnosis Comments COLONOSCOPY 05/22/2017 8:30 AM EDT from Last 3 Months or Most Recently Relevant to Health Maintenance Results * Due to [place] [employer] law, this organization might not be sharing [...] Documents on File Type Date Recorded Patient Slaughterer Religious Ritual Expl anation Advance Directive 05/17/2014 12:00 AM Adva nce Care Directives Advance Directive 03/10/2012 12:00 AM cherie sales Dec Aramis (Adv.Dir) Care Teams Management Assistant Relationship Specialty Start Date End Date KelleyRegi oneill [address] [place] [address] PCP - General 07/26/20
--- OUTSIDE RECORDS SUMMARY | 2025-01-10 09:22 | XMS_ITS ---
Author Organization [facility] Address [address] [place] [address] Care Team Providers Care Pyrometer Temperature Regulator Name Role Phone JAY KELLEY Primary Care Provider Encounters Encounter Location Date Provider Diagnosis [address] [address] 03/16/2024 JAY KELLEY Plan Of Treatment No Information Progress Notes * EFE FINLEY WDOB: 2 (64 yo M)Acc No.[id number]:03/16/2024 CPE Patient:?EFE FINLEY Provider:?Jay Kelley MD :1960???Age:64 Y???Sex:Male Trey e:03/16/2024 Address:[address] [place], [place] [address] Subjective: * Chief Complaints: * ??? * Medical History:? Objective: * Vitals:? Assessment: Plan: * Treatment: * Billing Information: * Visit Code:? * Procedure Codes:? Care Plan Details* * Electronic signature of STEPHEN KELLEY MD on 01/10/2025 at 09:22 AM EDT Sign off status: Pending * Provider:?Jay Kelley MD Date:? 024 Generated for Nikitai ng/Sjg/eTransmitting on:?01/10/2025 09:22 AM EDT
--- OUTSIDE RECORDS SUMMARY | 2025-01-10 09:22 | XMS_ITS | Patient Health Record ---
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 Problem Vitamin D deficiency (60071318) Vitamin D deficiency, unspecified (E55.9) Active confirmed Problem Insomnia (789104674) Insomnia, unspecified (G47.00) Active confirmed Problem Chronic rhinitis (02556044) Chronic rhinitis (J31.0) Active confirmed Problem Chronic sinusitis (77887257) Chronic sinusitis, unspecified (J32.9) Active confirmed Problem Crohn's disease (95718984) Crohn's disease, unspecified, without complications (K50.90) Active confirmed Problem 257052854 Encounter for general adult medical examination without abnormal findings (Z00.00) Active confirmed Problem 168927108 Encounter for screening for lipoid disorders (Z13.220) Active confirmed Problem 279869858 Prediabetes (R73.03) Active confirmed Problem 53243865 Essential hypertension (I10) Active confirmed Problem 48314971 Hyperlipidemia, unspecified hyperlipidemia type (E78.5) Active confirmed Problem Anxiety (29828784) Anxiety (F41.9) Active confi rmed Problem 93820351 Hypothyroidism, unspecified type (E03.9) Active confirmed Problem Arthritis (9951688) Arthritis (M19.90) Active confirmed Problem Male hypogonadism (32051891) Hypogonadism in male (E29.1) Active confirmed Problem 13960855 ROEL (obstructive sleep apnea) (G47.33) Active confirmed Problem 43019000 Hypertension, unspecified type (I10) Active confirmed Problem 582561734 Gastroesophageal reflux disease, unspecified whether esophagitis present (K21.9) Active confirmed Problem Screening for malignant neoplasm of prostate (926931747) Prostate cancer screening (Z12.5) Active confirmed Problem Atherosclerosis (98062661) Atherosclerosis (I70.90) Active confirmed Problem 731870593 Pre-syncope (R55) Active confirmed Problem 601158841 Memory change (R41.3) Active confirmed Problem 320219503 Rhinosinusitis (J32.9) Active confirmed Encounters Encounter Location Date Provider Diagnosis [address] [facility] [facility] [address] [facility] [address] [place] [address] 03/08/[address] [facility] [address] [facility] [address] [facility] [address] [place] [address] 03/11/2024 [facility] [address] [place] [address] 05/12/[address] [facility] [address] [facility] [place] [address] 05/12/2024 JAY BENEDICT Plan Of Treatment Pending [...] (DUTCH MONTERO) [address] J[place] [address] [id number] EFE FINLEY Self - patient is the insured Medical (General) History Medical History History ICD Code Crohns SI Kidney stones (uric acid) Surgical History Surgery Date(Month/Year) deviated septum repair lasik bilateral shoulder ac joint repair bilateral hands tendon repair right hip tonsillectomy
--- OUTSIDE RECORDS SUMMARY | 2025-01-10 09:22 | XMS_ITS | Encounter Summary ---
Author Organization [facility] Address [address] [place] [address] Care Team Providers Care Candy Attendant Name Role Phone Regi Kelley MD Primary Care Provider [phone] Encounter Details Date Type Department Care Team (Late st Contact Info) Description 03/26/2023 Scanned Document [facility] [address] [place] [phone] Lebron Watkins MD [address] [place] [address] Social History Tobacco Use Types Packs/Day Years [...] on filedocumented in this encounter Care Teams Candy Attendant Relationship Specialty Start Date End Date Regi Kelley MD [address] [place] [id number] PCP - General Internal Medicine 06/04/21 documented as of this encounter
[2025-01-15 17:54] LABS: Calprotectin, Fecal 36 mcg/g
== END 2025-01-10 09:11 | disposition home or self-care (01) ==
LOC: HO.XRAY 09:10
PROVIDERS: PCP Family Medicine; Visit Provider Internal Medicine
DX: M25.50 Pain in unspecified joint (principal); K50.10 Crohn's disease of large intestine without complications; M46.1 Sacroiliitis, not elsewhere classified
CPT/HCPCS: 72200; 73560; 83993

== ENCOUNTER → 2025-01-10 09:13 | Outpatient (BNV) | payer OTHER, SELFPAY | PROVIDERS: PCP Family Medicine; Visit Provider Radiology Diagnostic Radiology | DX: M53.3 Sacrococcygeal disorders, not elsewhere classified (principal); M17.0 Bilateral primary osteoarthritis of knee | CPT/HCPCS: 72200; 73560 ==

== ENCOUNTER 2025-01-21 11:05 | Outpatient (REF) | payer OTHER, SELFPAY ==
--- NOTE | ~2025-01-21 | MM_ITS ---
EXAMINATION: DXA BONE DENSITY AXIAL HISTORY: M25.50 - Pain in unspecified joint TECHNIQUE: [employer] Dual energy absorptiometry (DEXA) of the lumbar spine, total left hip, and femoral neck was performed. COMPARISON: Comparison is made with the prior examination dated 09/25/2012. FINDINGS: The bone mineral density of the lumbar spine is 1.402, corresponding to a T-score of 1.5, and a Z-score of 1.5. This is indicative of normal bone mineral density. This represents a BMD change of 0.6% compared to the prior exam. This is not statistically significant. The bone mineral density of the left total hip is 0.931, corresponding to a T-score of -1.2, and a Z-score of -1.0. This is indicative of osteopenia. This represents a BMD change of -3.7% compared to the prior exam. This is statistically significant. The bone mineral density of the left femoral neck is 0.929, corresponding to a T-score of -1.1, and a Z-score of -0.4. This is indicative of osteopenia.- This represents a BMD change of 0.6% compared to the prior exam. FRACTURE RISK: The FRAX index suggests a ten year probability of major osteoporotic fracture of 4.7%, and of hip fracture 0.5%. MM/XR DEXA axial skeleton IMPRESSION: Based on bone mineral density, and according to World Health Organization (WHO) criteria, the diagnosis is consistent with osteopenia. All bone density values are in grams per centimeter squared (g/cm2). Statistically, 68% of repeat scans fall within 1 SD (+/- 0.010 g/cm2 for AP spine L1-L4) and 1 SD (+/- 0.012 g/cm2 for femur total) FRAX is a trademark of the [employer]'s [place] [employer] Metabolic Bone Disease, a World Health Organization (WHO) Collaborating Center. Electronically signed by: Keyshawn Blanchard MD 01/21/2025 11:49 AM EDT
--- OUTSIDE RECORDS SUMMARY | 2025-01-21 12:00 | XMS_ITS | Clinical Summary ---
Author Organization [facility] Address [address] [place] [address] Care Team Providers Care Tool Maintenance Technician Name Role Phone Regi Kelley Primary Care Provider [phone] Allergies Active Allergy Reactions Criticality Noted Date [...] complete this topic Procedures * Due to [place] [employer] law, this organization might not be sharing negative HIV tests. Procedure Name Priority Date/Time Associated Diagnosis Comments COLONOSCOPY 05/22/2017 8:30 AM EDT from Last 3 Months or Most Recently Relevant to Health Maintenance Results * Due to [place] [employer] law, this organization might not be sharing [...] Most Recently Relevant to Health Maintenance Insurance [facility] Advance Directives Documents on File Type Date Recorded Patient Third Hand Expl anation Advance Directive 05/17/2014 12:00 AM Adva nce Care Directives Advance Directive 03/10/2012 12:00 AM cherie sales Dec Making (Adv.Dir) Care Teams Tool Maintenance Technician Relationship Specialty Start Date End Date Regi Kelley [address] [place] [id number] PCP - General 07/26/20
== END 2025-01-21 11:06 | disposition home or self-care (01) ==
LOC: HO.MAMMO 11:05
PROVIDERS: PCP Family Medicine; Visit Provider Internal Medicine
DX: M25.50 Pain in unspecified joint (principal); K90.9 Intestinal malabsorption, unspecified; K50.10 Crohn's disease of large intestine without complications
CPT/HCPCS: 77080

== ENCOUNTER → 2025-01-21 11:30 | Outpatient (BNV) | payer OTHER, SELFPAY | PROVIDERS: PCP Family Medicine; Visit Provider Radiology Diagnostic Radiology | DX: M85.80 Other specified disorders of bone density and structure, unspecified site (principal) | CPT/HCPCS: 77080 ==

== ENCOUNTER 2025-02-18 08:54 | Outpatient (AMB) | payer OTHER, SELFPAY ==
[2025-02-18 08:59] VITALS: BP 120/76; PULSE 71; TEMP 36.6; O2SAT 97
--- NOTE | 2025-02-18 08:59 | AM.OFFWIN_ITS ---
Intake Vital Signs 02/18/25 08:59 Height 5 ft 9 in Weight 203 lb BMI 30.0 BP 120/76 Blood Pressure Location Rt brachial Position Sitting Pulse 71 Pulse Source Pulse Oximeter Temp 97.9 F Temp Source Oral Pulse Oximetry (%) 97 Oxygen Delivery Method Room Air Intake Visit Reasons: EP Gland Swelling on LT side of face Intake Note: pt presents with left jaw/throat swelling for a few days Patient Tobacco Use Status: Never used Tobacco Allergies dog dander Allergy (Intermediate, Verified 02/18/25 09:03) Unknown ciprofloxacin (From Cipro) Allergy (Mild, Verified 02/18/25 09:03) Unknown Medication List - Last Reconciled 02/18/25 by Tono Hernandez MD valsartan 80 mg PO DAILY Do you need a note to return to daycare/school/sports/work: No HPI EP Gland Swelling on LT side of face HPI Details History - The patient is a 64-year-old male pres enting with swelling of the glands and ear pain. - The patient reports swelling of the gl ands for a couple of days, with associated pain on one side. - The patient experienced difficulty sle eping due to pain, but denies fever, headaches, nausea, or vomiting. - The patient has a history of Crohn's d isease and receives allergy shots monthly. Problem List - Acute Otitis Media - Crohn's Disease Patient Instructions - Avoid using Q-tips in the ears to prev ent irritation. - Take prescribed antibiotics (Azithromy korey) for five days. - Use Tylenol for pain management instea d of NSAIDs due to Crohn's disease. - Consider using Debrox ear drops to sof ten ear wax if needed. Review of Systems - General: No fever no chills - Neurological: No headaches no dizziness - Ear nose throat: No sore throat no hearing difficulty no ear pain - Cardiovascular: No syncope, no chest pain, no palpitations - Gastrointestinal: No nausea vomiting or diarrhea Physical Exam General: No acute distress HEENT: Inflammation in the ear, gland inflamed Neck: Supple Respiratory system: Able to talk in full sentences, no audible wheeze Gastrointestinal: No pain Extremities: No new findings BURGLAR ALARM INSTALLER: Alert awake oriented x3 Skin: Normal turgor [facility] Medical History Sleep apnea Cyst of right kidney Carotid artery plaque Atherosclerosis of abdominal aorta Surgical History Hx of colonoscopy History of esophagogastroduodenoscopy (EGD) Hx of hand surgery History of shoulder surgery Family History Father Cancer Mother Arthritis Social History Household Members: None Both parents involved: No Caregiver staying overnight: No Housing: House Are you a primary care attendant to a significant other at home: No Do you presently have visiting nurse or other home services: No Alcohol intake: never Patient Tobacco Use Status: Never used Tobacco Tobacco use type: Cigarette e-Cigarette/Vaping Use: Never Used Special leila needs: No service: Yes Current occupational status: retired Cognitive needs: No Hearing needs: No Vision needs: Yes (Patient wears glasses.) Physical Exam Vital Signs: Last Vital Signs Temp 97.9 F 02/18/25 08:59 Pulse 71 02/18/25 08:59 BP 120/76 02/18/25 08:59 Pulse Ox 97 02/18/25 08:59 Oxygen Delivery Method Room Air 02/18/25 08:59 BMI result Body Mass Index 30.0 Assessment & Plan Assessment & Plan (1) Infection of left ear: Code(s): H66.92 - Otitis media, unspecified, left ear (2) Lymphadenopathy of left cervical region: Code(s): R59.0 - Localized enlarged lymph nodes Plan History - The patient is a 64-year-old male presenting with swelling of the glands and ear pain. - The patient reports swelling of the glands for a couple of days, with associated pain on one side. - The patient experienced difficulty sleeping due to pain, but denies fever, headaches, nausea, or vomiting. - The patient has a history of Crohn's disease and receives allergy shots monthly. Problem List - Acute Otitis Media - Crohn's Disease Patient Instructions - Avoid using Q-tips in the ears to prevent irritation. - Take prescribed antibiotics (Azithromycin) for five days. - Use Tylenol for pain management instead of NSAIDs due to Crohn's disease. - Consider using Debrox ear drops to soften ear wax if needed. Medications: New azithromycin Take 2 tablets today then 1 daily 250 mg PO ONCE 6 tabs 0RF 5 days J06.9 - Acute upper respiratory infection, unspecified Coding Level of Care Code Est Pt Level 3 (83523) Diagnoses Infection of left ear H66.92 Lymphadenopathy of left cervical region R59.0
--- OUTSIDE RECORDS SUMMARY | 2025-02-18 09:09 | XMS_ITS | Clinical Summary ---
Author Organization [facility] Address [address] [place] [address] Care Team Providers Care Acting Instructor Name Role Phone Regi Kelley Primary Care Provider [phone] Allergies Active Allergy Reactions Criticality Noted Date [...] 80 12/04/2020 1:51 PM EDT Temperature 36.2 C (97.2 F) 12/04/2020 1:51 PM EDT Respiratory Rate 18 12/04/2020 1:51 PM EDT [...] 2) 10/11/2020 08/16/2020 COVID-19 Vaccine (1 - season) 2024 Alcohol/Substance Use Screening 08/25/2024 Influenza Vaccine (Season Ended) 2025 07/19/2020 RSV Vaccine (60+ years old and patients) (1 - 1-dose 75+ series) 2037 Hepatitis B Vaccines Aged Out No long er eligible based on patient's age to complete this topic Procedures * Due to [place] [employer] law, this organization might not be sharing negative HIV tests. Procedure Name Priority Date/Time Associated Diagnosis Comments COLONOSCOPY 05/22/2017 8:30 AM EDT from Last 3 Months or Most Recently Relevant to Health Maintenance Results * Due to [place] [employer] law, this organization might not be sharing [...] Most Recently Relevant to Health Maintenance Insurance [facility] Advance Directives Documents on File Type Date Recorded Patient Pocket Machine Operator Expl anation Advance Directive 05/17/2014 12:00 AM Adva nce Care Directives Advance Directive 03/10/2012 12:00 AM cherie sales Dec Making (Adv.Dir) Care Teams Acting Instructor Relationship Specialty Start Date End Date Regi Kelley [address] [place] [id number] PCP - General 07/26/20
== END 2025-02-18 09:21 | disposition home or self-care (01) ==
PROVIDERS: PCP Family Medicine; Visit Provider Internal Medicine
DX: H66.92 Otitis media, unspecified, left ear (principal); R59.0 Localized enlarged lymph nodes

== ENCOUNTER → 2025-02-18 08:54 | Outpatient (BNVA) | payer OTHER, SELFPAY | PROVIDERS: PCP Family Medicine; Visit Provider Internal Medicine | DX: Z13.89 Encounter for screening for other disorder (principal) ==

== ENCOUNTER 2025-03-07 08:38 | Outpatient (AMB) | payer OTHER, SELFPAY ==
--- OUTSIDE RECORDS SUMMARY | 2025-03-07 08:44 | XMS_ITS | Patient Health Record ---
Author Organization [facility] Address [address] [place] [address] Care Team Providers Care Hot Box Operator Name Role Phone Dominique(inactive) Jeovanny MACHADO Primary Care Provider U Mayo Penaloza Jr Unavailable [phone] Reason For Referral No Information Medications Medication [...] is negative. 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 Problems Problem Type SNOMED Code ICD Code Onset Dates Problem Status W/U Status Risk Notes Problem Esophageal reflux (375068214) Esophageal reflux (530.81) Active confirmed Problem Pak's esophagus (465484516) Pak's esophagus (530.85) Active confirmed Problem Crohn's disease of large bowel (6594327) Regional enteritis of large intestine (555.1) Active confirmed Plan Of Treatment Future Test Test Name Order Date UPPER GI ENDOSCOPY 11/04/2011 COLONOSCOPY 11/04/2011 Insurance Providers Payer Name Payer Address Payer Phone Subscriber Number Group Number Insured Name Patient Relationship to Insured Coverage Start Date Coverage End Date [facility] [address] [facility] [place] [phone] [id number] EFE FINLEY Self - patient is the insured Medical (General) History Medical History History ICD Code Crohn's disease PTSD Pak's esophagus Surgical History Surgery Date(Month/Year) tonsillectomy deviated septum repair shoulder surgery repair of tendon injury on the right marisabel morrison
--- OUTSIDE RECORDS SUMMARY | 2025-03-07 08:44 | XMS_ITS | Clinical Summary ---
Author Organization [facility] Address [address] [place] [address] Care Team Providers Care Direct Mail Manager Name Role Phone Unavailable Primary Care Provider [...] topic Solis Thayer Personal/Family Self 1960 [address] [facility] [place] [address]
--- OUTSIDE RECORDS SUMMARY | 2025-03-07 08:44 | XMS_ITS | Patient Health Record ---
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 Problem Vitamin D deficiency (83720012) Vitamin D deficiency, unspecified (E55.9) Active confirmed Problem Insomnia (705284181) Insomnia, unspecified (G47.00) Active confirmed Problem Chronic rhinitis (27195339) Chronic rhinitis (J31.0) Active confirmed Problem Chronic sinusitis (27268748) Chronic sinusitis, unspecified (J32.9) Active confirmed Problem Crohn's disease (39084114) Crohn's disease, unspecified, without complications (K50.90) Active confirmed Problem Adult health examination (659085941) Encounter for general adult medical examination without abnormal findings (Z00.00) Active confirmed Problem Lipid screening (968319888) Encounter for screening for lipoid disorders (Z13.220) Active confirmed Problem Prediabetes (244879403) Prediabetes (R73.03) Active confirmed Problem Essential hypertension (17992701) Essential hypertension (I10) Active confirmed Problem Hyperlipidaemia (30509351) Hyperlipidemia, unspecified hyperlipidemia type (E78.5) Active confirmed Problem Anxiety (26531541) Anxiety (F41.9) Active confi rmed Problem Hypothyroidism (84868977) Hypothyroidism, unspecified type (E03.9) Active confirmed Problem Arthritis (1000944) Arthritis (M19.90) Active confirmed Problem Male hypogonadism (47213243) Hypogonadism in male (E29.1) Active confirmed Problem Obstructive sleep apnea syndrome (18652584) ROEL (obstructive sleep apnea) (G47.33) Active confirmed Problem Essential hypertension (88377975) Hypertension, unspecified type (I10) Active confirmed Problem Gastroesophageal reflux disease (961551658) Gastroesophageal reflux disease, unspecified whether esophagitis present (K21.9) Active confirmed Problem Screening for malignant neoplasm of prostate (683518309) Prostate cancer screening (Z12.5) Active confirmed Problem Atherosclerosis (07149793) Atherosclerosis (I70.90) Active confirmed Problem Syncope and collapse (468521748) Pre-syncope (R55) Active confirmed Problem Amnesia (53679486) Memory change (R41.3) Active confirmed Problem Rhinosinusitis (285532425) Rhinosinusitis (J32.9) Active confirmed Encounters Encounter Location Date Provider Diagnosis [facility] [address] [place] [phone] 03/08/2024 JAY BENEDICT [facility] [address] [place] [address] 03/11/2024 JAY BENEDICT [facility] [address] [facility] [place] [address] 05/12/2024 JAY BENEDICT [facility] [address] [place] [address] 05/12/2024 JAY BENEDICT Plan Of Treatment Pending [...] A1C 11/20/2021 HEMOGLOBIN A1C 08/04/2018 LIPID PANEL 09/19/2023 LIPID PANEL 08/04/2018 LIPID PANEL 07/18/2020 LIPID PANEL 11/20/2021 MAGNESIUM [...] Coverage Start Date Coverage End Date [employer] ([facility]) [address] [place] [id number] EFE FINLEY Self - patient is the insured Medical (General) History Medical History History ICD Code Crohns SI Kidney stones (uric acid) Surgical History Surgery Date(Month/Year) deviated septum repair lasik bilateral shoulder ac joint repair bilateral hands tendon repair right hip tonsillectomy
--- OUTSIDE RECORDS SUMMARY | 2025-03-07 08:44 | XMS_ITS | Clinical Summary ---
Author Organization [facility] Address [address] [place] [address] Care Team Providers Care Electronic Scale Tester Name Role Phone Regi Kelley MD Primary Care Provider [phone] Allergies Active Allergy Reactions Criticality Noted Date [...] 1 3 Active Sodium Sulfate-Mag Sulfate-KCl (Sutab) 3298-425-854 MG TabIndications:C rohn's disease of large intestine without complication (HCC) Take 12 tablets by mouth once. One dose of 12 tablets on the Day Prior to procedure. One dose of 12 tablets on the Day Of the procedure. BIN: [id number] PCN: CN GROUP: [id number] ID: [id number] 24 tablet 3 Active mesalamine (LIALDA) 1.2 g tabletIndication s:Crohn's disease of large intestine without complication (HCC) Take 4 tablets (4.8 g total) by mouth daily. 120 tablet 3 3 Active Active Problems Problem Noted Date Diagnosed Date Crohn's disease of large intestine without compl ication 02/06/2023 Encounters Date Type Department Care Team Description 02/10/2025 Telephone [facility], [address] [place] [address] Alyssa Obrien Procedure Recall from [...] patient's age to complete this topic Insurance [facility] [employer] Member Subscriber Plan / Payer (Ef fective 2021-Present) Name:Solis Thayer Relation to Subscriber:Self Name:Solis Thayer Payer ID:Not on file Type:Not on file Address: [address] [address] Care Teams Electronic Scale Tester Relationship Specialty Start Date End Date Regi Kelley MD [address] [place] [address] PCP - General Internal Medicine 06/04/21
--- OUTSIDE RECORDS SUMMARY | 2025-03-07 08:44 | XMS_ITS | Clinical Summary ---
Author Organization [facility] Address [address] [place] [address] Care Team Providers Care Director E Learning Name Role Phone Regi Kelley Primary Care [...] complete this topic Procedures * Due to [place] I Move You law, this organization might not be sharing negative HIV tests. Procedure Name Priority Date/Time Associated Diagnosis Comments COLONOSCOPY 05/22/2017 8:30 AM EDT from Last 3 Months or Most Recently Relevant to Health Maintenance Results * Due to [place] I Move You law, this organization might not be sharing [...] Providers: Lexus Bolanos MD Referring MD: Jeovanny oFx MD (Referring MD) Requesting Provider: Medicines: Monitored [...] Most Recently Relevant to Health Maintenance Insurance [facility] Advance Directives Documents on File Type Date Recorded Patient Steeler Expl anation Advance Directive 05/17/2014 12:00 AM Adva nce Care Directives Advance Directive 03/10/2012 12:00 AM cherie sales Dec Making (Adv.Dir) Care Teams Director E Learning Relationship Specialty Start Date End Date Regi Kelley [address] [place] [address] PCP - General 07/26/20
--- OUTSIDE RECORDS SUMMARY | 2025-03-07 08:45 | XMS_ITS | Clinical Summary ---
Author Organization [facility] Address [address] [place] [address] Care Team Providers Care Deep Fat Fry Cook Name Role Phone Regi Kelley MD Primary Care Provider [phone] Social History Tobacco Use Types Packs/Day Years [...] Upcoming Encounters Date Type Department Care Team ([facility] st Contact Info) Description 04/12/2025 9:30 AM EDT Office Visit Pulmonolgy - [place] [address] [phone] Gus Sierra MD [address] [address] Health Maintenance Due Date Last Done Comments [...] patient's age to complete this topic [facility] Care Teams Deep Fat Fry Cook Relationship Specialty Start Date End Date Regi Kelley MD PCP - General Internal Medicine 07/09/21
--- NOTE | 2025-03-07 08:56 | A.OFFPC_ITS ---
Vital Signs 03/07/25 08:59 Height 5 ft 9 in Weight 203 lb 6 oz BMI 30.0 BP 120/78 Blood Pressure Location Rt brachial Position Sitting Respiration 16 Pulse 91 Pulse Source Pulse Oximeter Temp 97.4 F Temp Source Oral Pulse Oximetry (%) 95 Oxygen Delivery Method Room Air Intake Visit Reasons: f/u fatigue, chronic conditions Intake Note: patient is scheduled for chronic condition follow up pt would like to discuss lower extremity edema and bone density results pt would also like to start t aking calcium. Golf Course Starter Required: No Allergies dog dander Allergy (Intermediate, Verified 03/07/25 08:58) Unknown ciprofloxacin (From Cipro) Allergy (Mild, Verified 03/07/25 08:58) Unknown Medication List - Last Reconciled 03/07/25 by Macario Solano MD valsartan 80 mg PO DAILY Tobacco use date assessed: 03/08/24 Dental Screening Dental Screen Date: 03/08/24 HPI f/u fatigue, chronic conditions HPI Details 64 y/o male presents to f/u chronic cond itions. Blood pressure today 120/78, 91p. He is on valsartan 80mg daily. Had complaints of fatigue last office visit in October. No underlying derangements in labs to explain fatigue Mild changes in JACLYN and rheumatoid factor but patient says he has already seen maintenance repairer who did not feel that this was entry level marketing representative of an additional rheumatologic problem. He does have a history of Crohn's which may be altering his lab work. Continues to f/u with urology for decreased libido. Reports LE edema. Denies shortness of breath, chest pain or orthopnea. PFSH Medical History Sleep apnea Cyst of right kidney Carotid artery plaque Atherosclerosis of abdominal aorta Surgical History Hx of colonoscopy History of esophagogastroduodenoscopy (EGD) Hx of hand surgery History of shoulder surgery Family History Father Cancer Mother Arthritis Social History Household Members: None Both parents involved: No Caregiver staying overnight: No Housing: House Are you a primary residential care facility manager to a significant other at home: No Do you presently have visiting nurse or other home services: No Alcohol intake: never Patient Tobacco Use Status: Never used Tobacco Tobacco use type: Cigarette e-Cigarette/Vaping Use: Never Used Special leila needs: No service: Yes Current occupational status: retired Cognitive needs: No Hearing needs: No Vision needs: Yes (Patient wears glasses.) Questionnaire PHQ-9 Over the last 2 weeks, how often have you been bothered by any of the following problems? 2. Feeling down, depressed, or hopeless: not at all 3. Trouble falling or staying asleep, or sleeping too much: several days 6. Feeling bad about yourself - or that you are a failure or have let yourself or your family down: several days Source: Developed by Drs. Keyshawn Rodriguez, Ladonna Spears, Clovis Frances and colleagues, with an educational maggie from [employer]. Thrive Questionnaire Date Thrive assessed: 10/04/24 I am a: Patient What is your living situation today?: I choose not to answer this question Within the past 12 months, did the food you bought not last and you didn't have the money to get more?: I choose not to answer this question Within the past 12 months, did you worry whether your food would run out before you got money to buy more?: I choose not to answer this question Do you have trouble paying for medicines?: I choose not to answer this question Do you have trouble getting transportation to medical appointments?: I choose not to answer this question Do you have trouble paying your heating and electricity bill?: I choose not to answer this question Do you have trouble taking care of your child, family member or friend?: I choose not to answer this question Do you have trouble with day-to-day activities such as bathing, preparing meals, shopping, managing finances, etc.?: I choose not to answer this question Are you currently unemployed and looking for a job?: I choose not to answer this question Are you interested in more education?: I choose not to answer this question Please select the resources that you would like help with: None Currently or been in a relationship where the following occur: I choose not to answer THRIVE Score: 0 AUDIT C Alcohol Use Questionnaire (AUDIT-C) 3. How often do you have six or more drinks on one occasion?: Never Total Score: 0 TEGAN-7 AMB Questionnaire TEGAN-7 Date TEGAN - 7 assessed: 05/20/24 Source: Developed by Drs. Keyshawn Rodriguez, Ladonna Spears, Clovis Frances and colleagues, with an educational maggie from [employer]. Physical exam (Primary Care) Vital Signs: Last Vital Signs Temp 97.4 F 03/07/25 08:59 Pulse 91 03/07/25 08:59 Resp 16 03/07/25 08:59 BP 120/78 03/07/25 08:59 Pulse Ox 95 03/07/25 08:59 Oxygen Delivery Method Room Air 03/07/25 08:59 BMI result Body Mass Index 30.0 Tobacco/Smoking Status: Tobacco use Status Tobacco use date assessed 03/08/24 03/07/25 09:03 Patient Tobacco Use Status Never used Tobacco 03/07/25 09:03 Tobacco use type Cigarette 03/07/25 09:03 e-Cigarette/Vaping Use Never Used 03/07/25 09:03 Thrive Assessment: Date of Thrive Assessment Date Thrive assessed 10/04/24 03/07/25 09:03 Currently or been in a relationship where the following occur: I choose not to answer Coding Level of Care Code Est Pt Level 5 (33683) Diagnoses Hypertension I10 Fatigue R53.83 Decreased libido R68.82 Coronary artery disease I25.10 Crohn's colitis K50.10 GERD (gastroesophageal reflux disease) K21.9 Lower extremity edema R60.0 Assessment & Plan Assessment & Plan (1) Hypertension: Code(s): I10 - Essential (primary) hypertension Category: Medical Plan: Blood pressure is controlled Goal is less than 130/80 Continue current medication (2) Fatigue: Code(s): R53.83 - Other fatigue Category: Medical Plan: Patient is exercising regularly No laboratory abnormalities to explain fatigue - although he is improved. (3) Decreased libido: Code(s): R68.82 - Decreased libido Category: Medical Plan: Ongoing decrease libido Follow-up with urology (4) Coronary artery disease: Code(s): I25.10 - Atherosclerotic heart disease of [place] coronary artery without angina pectoris Category: Medical Plan: Coronary artery disease with coronary artery plaquing and also has aortic plaques He was referred to Cardiology who wanted to start him on a statin Patient was resistant to this. We had a long conversation about it today Will refer him to another obstetrics technician for 2nd opinion (5) Crohn's colitis: Code(s): K50.10 - Crohn's disease of large intestine without complications Category: Medical Plan: Follow-up with Dr. Medeiros Currently stable (6) GERD (gastroesophageal reflux disease): Code(s): K21.9 - Gastro-esophageal reflux disease without esophagitis Category: Medical Plan: Ongoing GERD symptoms GI had recommended PPI but patient is worried that this is causing osteopenia We discussed strategies to use these medications (7) Lower extremity edema: Code(s): R60.0 - Localized edema Category: Medical Plan: Mild lower extremity edema No shortness of breath or orthopnea This appears to be mild venous insufficiency and I advised him to elevate his legs Orders: Orders Comprehensive Sharples. Panel Fast Today Z00.00 - Encounter for general adult medical examination without abnormal findings Complete Blood Count Auto Diff Today Z00.00 - Encounter for general adult medical examination without abnormal findings Microalbumin, Random (w Creat) Today I10 - Essential (primary) hypertension Lipid Panel Today Z00.00 - Encounter for general adult medical examination without abnormal findings UA CC w/rflx Micro + Cult Today Z00.00 - Encounter for general adult medical examination without abnormal findings Vitamin D 25-OH Total Today E55.9 - Vitamin D deficiency, unspecified Prostate Specific Antigen Scr Today Z12.5 - Encounter for screening for malignant neoplasm of prostate TSH reflex Free T4 Today Z00.00 - Encounter for general adult medical examination without abnormal findings Referrals Cardiology Referral I25.10 - Atherosclerotic heart disease of [place] coronary artery without angina pectoris, I65.29 - Occlusion and stenosis of unspecified carotid artery, I70.0 - Atherosclerosis of aorta
[2025-03-07 08:59] VITALS: BP 120/78; PULSE 91; RESP 16; TEMP 36.3; O2SAT 95
== END 2025-03-07 09:56 | disposition home or self-care (01) ==
LOC: HO.HMCFM 08:39
PROVIDERS: PCP Family Medicine; Visit Provider Family Medicine
DX: I10 Essential (primary) hypertension (principal); R53.83 Other fatigue; K50.10 Crohn's disease of large intestine without complications; R68.82 Decreased libido; I25.10 Atherosclerotic heart disease of native coronary artery without angina pectoris; K21.9 Gastro-esophageal reflux disease without esophagitis; R60.0 Localized edema

== ENCOUNTER 2025-03-21 08:05 | Outpatient (AMB) | payer OTHER, SELFPAY ==
--- OUTSIDE RECORDS SUMMARY | 2025-03-21 08:07 | XMS_ITS | Clinical Summary ---
Author Organization [facility] Address [address] [place] [address] Care Team Providers Care Tumbling Instructor Name Role Phone Regi Kelley Primary Care Provider [phone] Allergies Active Allergy Reactions Criticality Noted Date [...] this topic Procedures * Due to [place] law, this organization might not be sharing negative HIV tests. Procedure Name Priority Date/Time Associated Diagnosis Comments COLONOSCOPY 05/22/2017 8:30 AM EDT from Last 3 Months or Most Recently Relevant to Health Maintenance Results * Due to [place] law, this organization might not be sharing [...] Most Recently Relevant to Health Maintenance Insurance [facility] Advance Directives Documents on File Type Date Recorded Patient Manager Process Expl anation Advance Directive 05/17/2014 12:00 AM Adva nce Care Directives Advance Directive 03/10/2012 12:00 AM cherie sales Dec Making (Adv.Dir) Care Teams Tumbling Instructor Relationship Specialty Start Date End Date Regi Kelley [address] [place] [id number] PCP - General 07/26/20
--- OUTSIDE RECORDS SUMMARY | 2025-03-21 08:08 | XMS_ITS | Patient Health Record ---
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 Problem Vitamin D deficiency (46962943) Vitamin D deficiency, unspecified (E55.9) Active confirmed Problem Insomnia (328576116) Insomnia, unspecified (G47.00) Active confirmed Problem Chronic rhinitis (97847985) Chronic rhinitis (J31.0) Active confirmed Problem Chronic sinusitis (56583232) Chronic sinusitis, unspecified (J32.9) Active confirmed Problem Crohn's disease (58882361) Crohn's disease, unspecified, without complications (K50.90) Active confirmed Problem Adult health examination (049656664) Encounter for general adult medical examination without abnormal findings (Z00.00) Active confirmed Problem Lipid screening (280344723) Encounter for screening for lipoid disorders (Z13.220) Active confirmed Problem Prediabetes (885420583) Prediabetes (R73.03) Active confirmed Problem Essential hypertension (21815149) Essential hypertension (I10) Active confirmed Problem Hyperlipidaemia (13657263) Hyperlipidemia, unspecified hyperlipidemia type (E78.5) Active confirmed Problem Anxiety (72054374) Anxiety (F41.9) Active confi rmed Problem Hypothyroidism (71673309) Hypothyroidism, unspecified type (E03.9) Active confirmed Problem Arthritis (8451690) Arthritis (M19.90) Active confirmed Problem Male hypogonadism (61106527) Hypogonadism in male (E29.1) Active confirmed Problem Obstructive sleep apnea syndrome (31803680) ROEL (obstructive sleep apnea) (G47.33) Active confirmed Problem Essential hypertension (79545818) Hypertension, unspecified type (I10) Active confirmed Problem Gastroesophageal reflux disease (723755488) Gastroesophageal reflux disease, unspecified whether esophagitis present (K21.9) Active confirmed Problem Screening for malignant neoplasm of prostate (428946592) Prostate cancer screening (Z12.5) Active confirmed Problem Atherosclerosis (53426145) Atherosclerosis (I70.90) Active confirmed Problem Syncope and collapse (160465399) Pre-syncope (R55) Active confirmed Problem Amnesia (12136497) Memory change (R41.3) Active confirmed Problem Rhinosinusitis (616074633) Rhinosinusitis (J32.9) Active confirmed Encounters Encounter Location Date Provider Diagnosis [facility] [address] [place] [address] 05/12/2024 JAY BENEDICT [facility] [address] [place] [address] 05/12/2024 JAY BENEDICT Plan Of Treatment Pending [...] Coverage Start Date Coverage End Date [employer] ([employer]) [address] [place] [id number] EFE FINLEY Self - patient is the insured Medical (General) History Medical History History ICD Code Crohns SI Kidney stones (uric acid) Surgical History Surgery Date(Month/Year) deviated septum repair lasik bilateral shoulder ac joint repair bilateral hands tendon repair right hip tonsillectomy
--- OUTSIDE RECORDS SUMMARY | 2025-03-21 08:08 | XMS_ITS | Clinical Summary ---
Author Organization [facility] Address [address] [place] [address] Care Team Providers Care Neuro Ophthalmologist Name Role Phone Regi Kelley MD Primary Care Provider [phone] Allergies Active Allergy Reactions Criticality Noted Date [...] 1 3 Active Sodium Sulfate-Mag Sulfate-KCl (Sutab) 9713-820-487 MG TabIndications:C rohn's disease of large intestine without complication (HCC) Take 12 tablets by mouth once. One dose of 12 tablets on the Day Prior to procedure. One dose of 12 tablets on the Day Of the procedure. BIN: [id number] PCN: CN GROUP: [id number] ID: [id number] 24 tablet 3 Active mesalamine (LIALDA) 1.2 g tabletIndication s:Crohn's disease of large intestine without complication (HCC) Take 4 tablets (4.8 g total) by mouth daily. 120 tablet 3 3 Active Active Problems Problem Noted Date Diagnosed Date Crohn's disease of large intestine without compl ication 02/06/2023 Encounters Date Type Department Care Team Description 02/10/2025 Telephone [facility], [address] [place] [address] Alyssa Obrien Procedure Recall from [...] patient's age to complete this topic Insurance [facility] Member Subscriber Plan / Payer (Ef fective 2021-Present) Name:Solis Thayer Relation to Subscriber:Self Name:Solis Thayer Payer ID:Not on file Type:Not on file Address: [address] [address] Care Teams Neuro Ophthalmologist Relationship Specialty Start Date End Date Regi Kelley MD [address] [place] [address] PCP - General Internal Medicine 06/04/21
--- OUTSIDE RECORDS SUMMARY | 2025-03-21 08:08 | XMS_ITS | Clinical Summary ---
Author Organization [facility] Address [address] [place] [address] Care Team Providers Care Top Cager Name Role Phone Regi Kelley MD Primary Care Provider [phone] Social History Tobacco Use Types Packs/Day Years [...] Encounters Date Type Department Care Team ([facility] st Contact Info) Description 04/12/2025 9:30 AM EDT Office Visit Pulmonolgy - [place] [address] [phone] Gus Sierra MD [address] [address] Health Maintenance Due Date Last Done Comments DTaP,Tdap,and Td Vaccines (1 - Tdap) 1981 Pneumococcal Vaccine: 50+ Ye ars (1 of 1 - PCV) 2012 Zoster Vaccines (1 of 2) 2012 Cholesterol Screening (Lipid Panel) 07/24/2022 Colorectal Cancer Screening: Colonoscopy 07/24/2022 HIV Screening 07/24/2022 Hepatitis C Screening 07/24/2022 Social Influencers of Health Screening 07/24/2022 Hypertension/CHF/CAD Annual BMP Blood Test 10/11/2023 COVID-19 Vaccine (1 - 2023-2 5 season) 2024 Depression Screening 08/25/2024 Influenza Vaccine (#1) 2025 RSV Immunization Adult [...] age to complete this topic Insurance [facility] Care Teams Top Cager Relationship Specialty Start Date End Date Regi Kelley MD PCP - General Internal Medicine 07/09/21
--- OUTSIDE RECORDS SUMMARY | 2025-03-21 08:08 | XMS_ITS | Patient Health Record ---
Author Organization [facility] Address [address] [place] [address] Care Team Providers Care Sap Gatherer Name Role Phone Dominique(inactive) Jeovanny MACHADO Primary Care Provider U Mayo Penaloza Jr Unavailable Reason For Referral No Information Medications Medication [...] is negative. He is a retired [employer]. Problems Problem Type SNOMED Code ICD Code Onset Dates Problem Status W/U Status Risk Notes Problem Esophageal reflux (124396057) Esophageal reflux (530.81) Active confirmed Problem Pak's esophagus (546131365) Pak's esophagus (530.85) Active confirmed Problem Crohn's disease of large bowel (6652151) Regional enteritis of large intestine (555.1) Active confirmed Plan Of Treatment Future Test Test Name Order Date UPPER GI ENDOSCOPY 11/04/2011 COLONOSCOPY 11/04/2011 Insurance Providers Payer Name Payer Address Payer Phone Subscriber Number Group Number Insured Name Patient Relationship to Insured Coverage Start Date Coverage End Date [facility] [address] [facility] [place], [place] [phone] [id number] EFE FINLEY Self - patient is the insured Medical (General) History Medical History History ICD Code Crohn's disease PTSD Pak's esophagus Surgical History Surgery Date(Month/Year) tonsillectomy deviated septum repair shoulder surgery repair of tendon injury on the right marisabel morrison
--- OUTSIDE RECORDS SUMMARY | 2025-03-21 08:08 | XMS_ITS | Clinical Summary ---
Author Organization [facility] Address [address] [place] [address] Care Team Providers Care Barrel Burner Name Role Phone Unavailable Primary Care Provider [...] Solis Thayer Personal/Family Self [address] [place] [address]
[2025-03-21 08:12] VITALS: BP 128/72; PULSE 74; TEMP 36.7; O2SAT 94; BMI 29.7
--- NOTE | 2025-03-21 08:12 | MHC.OFFWIV ---
Intake Vital Signs 03/21/25 08:12 Height 5 ft 9 in Weight 201 lb BMI 29.7 BP 128/72 Blood Pressure Location Lt brachial Position Sitting Pulse 74 Pulse Source Pulse Oximeter Temp 98.1 F Temp Source Oral Pulse Oximetry (%) 94 Oxygen Delivery Method Room Air Intake Visit Reasons: EP Pulled muscle in back Intake Note: presents with pulled muscle in back Patient Tobacco Use Status: Never used Tobacco Allergies dog dander Allergy (Intermediate, Verified 03/21/25 08:14) Unknown ciprofloxacin (From Cipro) Allergy (Mild, Verified 03/21/25 08:14) Unknown Medication List - Last Reconciled 03/21/25 by Loulou Del Castillo NP oxycodone-acetaminophen 5-325 mg 1 tab PO QID PRN valsartan 80 mg PO DAILY Do you need a note to return to daycare/school/sports/work: No HPI HPI Comments History of Present Illness Details 65 y/o Male Patient who presents to the walk in clinic with c/o Lower back Muscle Strain/Pull. Pt injured his back at Gym last week - he was evaluated at [facility] Friday and prescribed Oxycodone and Cyclobenzaprine. Pt reports that Muscle relaxants do not work. He tried Lidocaine Patches with no relief. Reports that Oxy have been working better, asking for more refills. [facility] Medical History (Updated 03/21/25 @ 08:39 by Loulou Del Castillo, DEMARCUS) Lumbar spine strain Sleep apnea Cyst of right kidney Carotid artery plaque Atherosclerosis of abdominal aorta Surgical History Hx of colonoscopy History of esophagogastroduodenoscopy (EGD) Hx of hand surgery History of shoulder surgery Family History Father Cancer Mother Arthritis Social History Household Members: None Both parents involved: No Caregiver staying overnight: No Housing: House Are you a primary anesthesiologist and critical care to a significant other at home: No Do you presently have visiting nurse or other home services: No Alcohol intake: never Patient Tobacco Use Status: Never used Tobacco Tobacco use type: Cigarette e-Cigarette/Vaping Use: Never Used Special leila needs: No service: Yes Current occupational status: retired Cognitive needs: No Hearing needs: No Vision needs: Yes (Patient wears glasses.) Review of Systems Const All systems reviewed & are unremarkable except as noted in HPI and below Physical Exam Vital Signs: Last Vital Signs Temp 98.1 F 03/21/25 08:12 Pulse 74 03/21/25 08:12 BP 128/72 03/21/25 08:12 Pulse Ox 94 03/21/25 08:12 Oxygen Delivery Method Room Air 03/21/25 08:12 BMI result Body Mass Index 29.7 Const General: no acute distress; No comfortable Orientation/consciousness: patient oriented x3 Back/Spine/Pelvis Back: back tenderness Thoracic/Lumbar Spine: pain with thoraco-lumbar ROM, thoraco-lumbar spasm and lumbar spinal tenderness Neuro General: patient oriented x3, gait normal and moves all extremities Psych Speech and movement: Normal speech and movement present Assessment & Plan Assessment & Plan (1) Lumbar spine strain: Code(s): S39.012A - Strain of muscle, fascia and tendon of lower back, initial encounter Qualifiers: Encounter type: initial encounter Qualified Code(s): S39.012A - Strain of muscle, fascia and tendon of lower back, initial encounter Plan: D/C Cyclobenzaprine Ordered Methocarbamol TID Advised to take Acetaminophen 1000 mg Q8h Heat/Ice Lidocaine Patches. Medications: New methocarbamol 500 mg PO TID 10 days 30 tabs 0RF S39.012A - Strain of muscle, fascia and tendon of lower back, initial encounter methocarbamol 500 mg PO TID 30 tabs 0RF 10 days S39.012A - Strain of muscle, fascia and tendon of lower back, initial encounter Coding Level of Care Code Est Pt Level 4 (46971) Diagnoses Strain of lumbar region, initial encounter S39.012A Encounter type: initial encounter Time Spent (min) 20
== END 2025-03-21 09:06 | disposition home or self-care (01) ==
PROVIDERS: PCP Family Medicine; Visit Provider Nurse Practitioner Family
DX: S39.012A Strain of muscle, fascia and tendon of lower back, initial encounter (principal)

== ENCOUNTER 2025-03-31 06:52 | Day surgery (SDC) | payer OTHER, SELFPAY ==
--- OUTSIDE RECORDS SUMMARY | 2025-03-03 12:16 | XMS_ITS | Clinical Summary ---
Author Organization [facility] Address [address] [place] [address] Care Team Providers Care Web Applications Administrator Name Role Phone Unavailable Primary Care Provider [...] 79 09/27/2022 11:10 AM EST Temperature 36.2 C (97.1 F) 09/27/2022 11:10 AM EST Respiratory Rate - - Oxygen Saturation 97% [...] (1 of 2) 2012 Influenza Vaccine (#1) 2025 RSV Adult > 60+ Yrs or Pregn [...] topic Solis Thayer Personal/Family Self 1960 [address] [place] [address]
--- OUTSIDE RECORDS SUMMARY | 2025-03-03 12:16 | XMS_ITS | Clinical Summary ---
Author Organization [facility] Address [address] [place] [address] Care Team Providers Care Physician General Internal Medicine Name Role Phone Regi Kelley Primary Care Provider [phone] Allergies Active Allergy Reactions Criticality Noted Date [...] 2024 Alcohol/Substance Use Screening 08/25/2024 Influenza Vaccine (#1) 2025 07/19/2020 RSV Vaccine (60+ years old and patients) (1 - 1-dose 75+ series) 2037 Hepatitis B Vaccines Aged Out No long er eligible based on patient's age to complete this topic Procedures * Due to [place] [employer] law, this organization might not be sharing negative HIV tests. Procedure Name Priority Date/Time Associated Diagnosis Comments COLONOSCOPY 05/22/2017 8:30 AM EDT from Last 3 Months or Most Recently Relevant to Health Maintenance Results * Due to [place] [employer] law, this organization might not be sharing [...] Most Recently Relevant to Health Maintenance Insurance [facility] Advance Directives Documents on File Type Date Recorded Patient Kennel Hand Expl anation Advance Directive 05/17/2014 12:00 AM Adva nce Care Directives Advance Directive 03/10/2012 12:00 AM cherie sales Dec Making (Adv.Dir) Care Teams Physician General Internal Medicine Relationship Specialty Start Date End Date Regi Kelley [address] [place] [id number] PCP - General 07/26/20
--- OUTSIDE RECORDS SUMMARY | 2025-03-03 12:16 | XMS_ITS ---
Author Name [facility] Organization Unknown History of Medication Use Medication Directions Dispensed Refills Start Date End Date Stat us Sodium Sulfate-Mag Sulfate-KCl (Sutab) 8853-862-256 MG Tab Take 12 tablets by mouth once. One dose of 12 tablets on the Day Prior to procedure. One dose of 12 tablets on the Day Of the procedure. BIN: [id number] PCN: CN GROUP: [id number] ID: [id number] 02/07/2023 active Sodium Sulfate-Mag Sulfate-KCl (Sutab) 7812-296-539 MG Tab One dose of 12 tablets on the Day Prior to procedure. One dose of 12 tablets on the Day Of the procedure. 02/06/2023 02/07/2023 aborted famotidine (PEPCID) 40 MG tablet Take 1 tablet (40 mg total) by mouth nightly. 02/06/2023 active mesalamine (LIALDA) 1.[address] tablet Take 4 tablets (4.8 g total) by mouth daily. 01/31/2023 04/23/2023 active PANTOprazole (PROTONIX) 40 MG EC tablet 12/18/2022 02/06/2023 aborted Ascorbic Acid (vitamin C) 1000 MG tablet Take 1,000 mg by mouth daily. active Cholecalciferol (VITAMIN D3) 2000 UNITS Cap capsule Vitamin D 2000 UNIT Oral Capsule 1 TAB DAILY Refills: 0 Active active Zinc 50 MG Tab 1 tablet active Allergies Allergen Reaction Severity Comment Documented Date Source Statu s NSAIDS UNKNOWN/PATIENT AND FAMILY UNABLE TO DEFINE 02/06/2023 [facility] acti ve CIPROFLOXACIN UNKNOWN/PATIENT AND FAMILY UNABLE TO DEFINE 09/13/2022 [facility] acti ve CIPROFIBRATE DIARRHEA 12/04/2020 [facility] active Problems Problem Status Onset Date Problem Type Date of Resoluti on Source Crohn's disease of large intestine without complication active 2023-02-06 ProblemAct [facility] Encounters Encounter Type Encounter Reason Primary Diagnosis Location Date Ambulatory Crohn's disease of large intestine without complications [facility] 02/06/2023 Care Team Organization Name Specialty Phone Email Start Date End [facility] REGI KELLEY Primary Care 02/06/2023 [facility] Regi Kelley Primary Care 07/30/2021 07/30/2021
--- OUTSIDE RECORDS SUMMARY | 2025-03-03 12:16 | XMS_ITS | Patient Health Record ---
Author Organization [facility] [address] Address [address] [place] [address] Care Team Providers Care Crew Supervisor Name Role Phone BENEDICTJAY Primary Care Provider [phone] Allergies Allergen (clinical drug ingredient) Drug/Non Drug Allergy documented on EMR Reaction Allergy Type Onset Date Status ciprofloxacin Cipro Unknown Drug Allergy Act ariel Reason For Referral No Information Medications Medication SIG (Take, Route, Frequency, Duration) Notes Start Date End Date Status predniSONE 10 MG 1 tablet Orally Once a day; Duration: 30 days 09/27/2023 Active Budesonide 0.5 MG/2ML 1 spray in each no stril Inhalation Once a day; Duration: 30 days 07/31/2023 Active Ambien 5 MG 1 tablet at bedtime as needed Orally Once a day; Duration: 30 days 07/31/2023 Active Zinc 50 MG 1 tablet Orally Once a day Active Magnesium Gluconate Active Vitamin D (Ergocalciferol) 2000 UNIT as directed Orally Active Vitamin C 1000 MG 1 tablet Orally Once a day Active Betamethasone Valerate 0.1 % 1 application To affected area Externally Twice a day; Duration: 30 days 08/01/2023 Active Valsartan 80 MG TAKE 1 TABLET DAILY; Duration: 90 Active Immunizations Vaccine Route Administration Date Status Comme nts Zoster IM Intramuscular 11/30/2020 Administered Social History Tobacco Use: Social History Observation Description Date Details (start date - stop date) Never Smoker NA - NA Tobacco Use/Smoking Question Answer Notes Are you a nonsmoker Problems Problem Type SNOMED Code ICD Code Onset Dates Problem Status W/U Status Risk Notes Problem 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 Problem Vitamin D deficiency (64917129) Vitamin D deficiency, unspecified (E55.9) Active confirmed Problem Insomnia (862829433) Insomnia, unspecified (G47.00) Active confirmed Problem Chronic rhinitis (00066703) Chronic rhinitis (J31.0) Active confirmed Problem Chronic sinusitis (64728694) Chronic sinusitis, unspecified (J32.9) Active confirmed Problem Crohn's disease (56775356) Crohn's disease, unspecified, without complications (K50.90) Active confirmed Problem Adult health examination (249595543) Encounter for general adult medical examination without abnormal findings (Z00.00) Active confirmed Problem Lipid screening (107338480) Encounter for screening for lipoid disorders (Z13.220) Active confirmed Problem Prediabetes (735486111) Prediabetes (R73.03) Active confirmed Problem Essential hypertension (37855289) Essential hypertension (I10) Active confirmed Problem Hyperlipidaemia (86765718) Hyperlipidemia, unspecified hyperlipidemia type (E78.5) Active confirmed Problem Anxiety (23782013) Anxiety (F41.9) Active confi rmed Problem Hypothyroidism (48588123) Hypothyroidism, unspecified type (E03.9) Active confirmed Problem Arthritis (7115978) Arthritis (M19.90) Active confirmed Problem Male hypogonadism (39613241) Hypogonadism in male (E29.1) Active confirmed Problem Obstructive sleep apnea syndrome (47932283) ROEL (obstructive sleep apnea) (G47.33) Active confirmed Problem Essential hypertension (44131502) Hypertension, unspecified type (I10) Active confirmed Problem Gastroesophageal reflux disease (522799158) Gastroesophageal reflux disease, unspecified whether esophagitis present (K21.9) Active confirmed Problem Screening for malignant neoplasm of prostate (115673403) Prostate cancer screening (Z12.5) Active confirmed Problem Atherosclerosis (64971576) Atherosclerosis (I70.90) Active confirmed Problem Syncope and collapse (668795162) Pre-syncope (R55) Active confirmed Problem Amnesia (78935688) Memory change (R41.3) Active confirmed Problem Rhinosinusitis (955031808) Rhinosinusitis (J32.9) Active confirmed Encounters Encounter Location Date Provider Diagnosis [facility] [address] [place] [phone] 03/08/2024 [facility] [address] [place] [address] 03/11/2024 JAY BENEDICT [facility] [address] [facility] [place] [address] 05/12/2024 JAY BENEDICT [facility] [address] [facility] [place] [address] 05/12/2024 JAY BENEDICT Plan Of Treatment Pending Test Test Name Order Date Echocardiogram 07/04/2021 GGT 09/19/2023 JACLYN w/Reflex 09/19/2023 PSA Total+ Free 01/26/2020 ESR 09/19/2023 Testosterone, total 01/26/2020 MRI : Brain +/- 05/30/2022 25OH VITAMIN D 11/20/2021 25OH VITAMIN D 09/19/2023 ACETYLCHOLINE RECEPTOR MODULATING ANTIBO DIES 09/19/2023 CBC (COMPLETE BLOOD COUNT) 11/20/2021 CBC (COMPLETE BLOOD COUNT) 07/18/2020 CBC (COMPLETE BLOOD COUNT) 08/04/2018 COMPREHENSIVE METABOLIC PANEL 08/04/2018 COMPREHENSIVE METABOLIC PANEL 07/18/2020 COMPREHENSIVE METABOLIC PANEL 11/20/2021 COMPREHENSIVE METABOLIC PANEL 09/19/2023 CRP, HIGH SENSITIVITY [...] Coverage Start Date Coverage End Date [employer] (FORMER[facility] N[facility]) [address] [place] [address] [id number] EFE FINLEY Self - patient is the insured Medical (General) History Medical History History ICD Code Crohns SI Kidney stones (uric acid) Surgical History Surgery Date(Month/Year) deviated septum repair lasik bilateral shoulder ac joint repair bilateral hands tendon repair right hip tonsillectomy
--- OUTSIDE RECORDS SUMMARY | 2025-03-03 12:16 | XMS_ITS | Patient Health Record ---
Author Organization [facility] Address [address] [place] [address] Care Team Providers Care Reaming Machine Operator Name Role Phone Dominique(inactive) Jeovanny MACHADO Primary Care Provider U Mayo Penaloza Jr Unavailable [phone] Reason For Referral No Information Medications Medication SIG (Take, Route, Fr equency, Duration) Notes Start Date End Date Status predniSONE 10mg 08/25/2024 08/25/2024 Ac tive MoviPrep 100 GM as directed before c olonoscopy Orally for 1 dose 11/04/2011 08/25/2024 Active predniSONE 10 MG 4 tablets daily with food Orally Once a day for one week then taper as directed 07/10/2012 Active Vitamin D 5000iu Act ariel oxyCODONE HCl 10mg A ctive Lialda 1.2 GM 2 Orally once a day 05/24/2013 Active Social History Tobacco Use: Social History Observation Description Date Details (start date - stop date) Never Smoker NA - NA Tobacco Use/Smoking Question Answer Notes Patient is a nonsmoker Alcohol Screen Question Answer Notes Did you have a drink contain ing alcohol in the past year? Yes Points 1 Interpretation Negative How often did you have a dri nk containing alcohol in the past year? Monthly or less (1 point) Section Notes: Tobacco use is negative. Alc ohol abuse is negative. 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 Problems Problem Type SNOMED Code ICD Code Onset Dates Problem Status W/U Status Risk Notes Problem Esophageal reflux (118667291) Esophageal reflux (530.81) Active confirmed Problem Pak's esophagus (945124806) Pak's esophagus (530.85) Active confirmed Problem Crohn's disease of large bowel (3167408) Regional enteritis of large intestine (555.1) Active confirmed Plan Of Treatment Future Test Test Name Order Date UPPER GI ENDOSCOPY 11/04/2011 COLONOSCOPY 11/04/2011 Insurance Providers Payer Name Payer Address Payer Phone Subscriber Number Group Number Insured Name Patient Relationship to Insured Coverage Start Date Coverage End Date [facility] [address] [facility] [place] [phone] [id number] EFE FINLEY Self - patient is the insured Medical (General) History Medical History History ICD Code Crohn's disease PTSD Pak's esophagus Surgical History Surgery Date(Month/Year) tonsillectomy deviated septum repair shoulder surgery repair of tendon injury on the right marisabel morrison
--- OUTSIDE RECORDS SUMMARY | 2025-03-03 12:16 | XMS_ITS | Clinical Summary ---
Author Organization [facility] Address [address] [place] [address] Care Team Providers Care Teacher Early Childhood Development Name Role Phone Regi Kelley MD Primary Care Provider [phone] Allergies Active Allergy Reactions Criticality Noted Date [...] 1 3 Active Sodium Sulfate-Mag Sulfate-KCl (Sutab) 7004-382-777 MG TabIndications:C rohn's disease of large intestine without complication (HCC) Take 12 tablets by mouth once. One dose of 12 tablets on the Day Prior to procedure. One dose of 12 tablets on the Day Of the procedure. BIN: [id number] PCN: CN GROUP: [id number] ID: [id number] 24 tablet 3 Active mesalamine (LIALDA) 1.2 g tabletIndication s:Crohn's disease of large intestine without complication (HCC) Take 4 tablets (4.8 g total) by mouth daily. 120 tablet 3 3 Active Active Problems Problem Noted Date Diagnosed Date Crohn's disease of large intestine without compl ication 02/06/2023 Encounters Date Type Department Care Team Description 02/10/2025 Telephone [facility], [address] [place] [address] Alyssa Obrien Procedure Recall from Last 3 Months Social History Tobacco Use Types Packs/Day Years [...] 72 02/06/2023 10:39 AM EDT Temperature 36.3 C (97.3 F) 02/06/2023 10:39 AM EDT Respiratory Rate - - Oxygen Saturation - [...] Vaccine (1 of 2) 2012 COVID-19 Vaccine ( - 2023-2 5 season) 2024 Influenza Vaccine 03/25/2025 Colonoscopy 03/25/2033 03/25/2023 RSV Vaccine 60 years and old er and Patients (1 - 1-dose 75+ series) 2037 Hepatitis B Vaccines Aged Out No long er eligible based on patient's age to complete this topic Insurance [facility] [employer] Member Subscriber Plan / Payer (Ef fective 2021-Present) Name:Solis Thayer Relation to Subscriber:Self Name:Solis Thayer Payer ID:Not on file Type:Not on file Address: [address] [address] Care Teams Teacher Early Childhood Development Relationship Specialty Start Date End Date Regi Kelley MD [address] [place] [address] PCP - General Internal Medicine 06/04/21
--- OUTSIDE RECORDS SUMMARY | 2025-03-03 12:16 | XMS_ITS | Clinical Summary ---
Author Organization [facility] Address [address] [place] [address] Care Team Providers Care Documentation Engineer Name Role Phone Regi Kelley MD Primary Care Provider [phone] Social History Tobacco Use Types Packs/Day Years [...] 10/25/2022 2:26 PM EST Plan of Treatment Upcoming Encounters Date Type Department Care Team ([facility] st Contact Info) Description 04/12/2025 9:30 AM EDT Office Visit Pulmonolgy - [place] [address] [phone] Gus Sierra MD [address] [address] Health Maintenance Due Date Last Done Comments [...] 2023-2 5 season) 2024 Influenza Vaccine (#1) 2025 RSV Immunization Adult Patie nts (1 [...] 5 Years) and At-Risk Patients (6 to 49 Years) Aged Out No longer eligible b ased on patient's age to complete this topic RSV Immunization Patients Un jose guadalupe 20 months Aged Out No longer eligible b ased on patient's age to complete this topic Varicella Vaccines Aged Out No longer eligible based on patient's age to complete this topic Insurance [employer] Care Teams Documentation Engineer Relationship Specialty Start Date End Date Regi Kelley MD PCP - General Internal Medicine 07/09/21
[2025-03-29 07:44] VITALS: BMI 29.8
--- NOTE | 2025-03-29 10:01 | HO.ANESPROP2 ---
Documented by User: Mami Lane NP 03/29/25 10:05 HPI - Anesthesia Eval Consult details Narrative: 65yo M for Colonoscopy [place] [facility] [place] [facility], ASCVD - last office visit 2022 - stable for 2 year f/u with nml coronary calcium score PMFSH Active Problems Active Problems: All Active Problems Lumbar spine strain (Acute) Coronary artery disease (Acute) Lower extremity edema (Acute) Lymphadenopathy of left cervical region (Acute) Infection of left ear (Acute) Joint pain (Acute) Screen for STD (sexually transmitted disease) (Acute) Erectile dysfunction (Acute) Decreased libido (Acute) Low HDL (under 40) (Acute) Elevated fasting glucose (Acute) Fatigue (Acute) Hyperlipidemia (Acute) Complex renal cyst (Acute) Elevated antinuclear antibody (JACLYN) level (Acute) Elevated rheumatoid factor (Acute) Cyst of right kidney (Acute) Hypertension (Acute) Left shoulder pain (Acute) Laboratory exam ordered as part of routine general medical examination (Acute) Barretts esophagus (Acute) GERD (gastroesophageal reflux disease) (Acute) Crohn's colitis (Acute) Carotid artery plaque (Acute) Atherosclerosis of abdominal aorta (Acute) Past Medical History Medical History Lumbar spine strain Sleep apnea Cyst of right kidney Carotid artery plaque Atherosclerosis of abdominal aorta Family History Family History Father Cancer Mother Arthritis Surgical History Surgical History Hx of colonoscopy History of esophagogastroduodenoscopy (EGD) Hx of hand surgery History of shoulder surgery Social History Social History Household Members: None Housing: House Are you a primary customer care specialist to a significant other at home: No Do you presently have visiting nurse or other home services: No Alcohol intake: never Patient Tobacco Use Status: Never used Tobacco Tobacco use type: Cigarette e-Cigarette/Vaping Use: Never Used Have you been hit, kicked, punched, or otherwise hurt by someone within the past year? If so, by whom?: No Special leila needs: No Are you DNR?: No Advance Directives: No Advance Directives Information Provided: Yes Poor oral hygiene: No service: Yes Current occupational status: retired Cognitive needs: No Hearing needs: No Vision needs: Yes (Patient wears glasses.) Meds Allergies Allergy/AdvReac Type Severity Reaction Status Date / Time dog dander Allergy Intermediate Unknown Verified 03/31/25 07:22 ciprofloxacin (From Cipro) Allergy Mild Unknown Verified 03/31/25 07:22 Exam Height,Weight and Vital Signs: Height 5 ft 9 in Weight 91.626 kg Narrative Narrative: EKG 2024 Ventricular Rate: 81 BPM Atrial Rate: 81 BPM P-R Interval: 144 ms QRS Duration: 88 ms Q-T Interval: 386 ms QTC Calculation(Bazett): 448 ms P Henderson: 46 degrees R Henderson: 12 degrees T Henderson: 33 degrees Normal sinus rhythm Possible Left atrial enlargement Borderline ECG No previous ECGs available Confirmed by MEETA MACHADO, [facility] ([id number]) on 03/21/2025 9:11:37 AM Assessment and Plan Assessment Anesthesia Assessment: Chart Reviewed Documented by User: Gordon Gunn MD 03/31/25 08:40 PMFSH Past Medical History Medical History Lumbar spine strain Sleep apnea Cyst of right kidney Carotid artery plaque Atherosclerosis of abdominal aorta Family History Family History Father Cancer Mother Arthritis Family history of problems with anesthesia: No Surgical History Surgical History Hx of colonoscopy History of esophagogastroduodenoscopy (EGD) Hx of hand surgery History of shoulder surgery History of Problems with Anesthesia: No Social History Social History Household Members: None Housing: House Are you a primary customer care specialist to a significant other at home: No Do you presently have visiting nurse or other home services: No Alcohol intake: never Patient Tobacco Use Status: Never used Tobacco Tobacco use type: Cigarette e-Cigarette/Vaping Use: Never Used Have you been hit, kicked, punched, or otherwise hurt by someone within the past year? If so, by whom?: No Special leila needs: No Are you DNR?: No Advance Directives: No Advance Directives Information Provided: Yes Poor oral hygiene: No service: Yes Current occupational status: retired Cognitive needs: No Hearing needs: No Vision needs: Yes (Patient wears glasses.) Meds Allergies Allergy/AdvReac Type Severity Reaction Status Date / Time dog dander Allergy Intermediate Unknown Verified 03/31/25 07:22 ciprofloxacin (From Cipro) Allergy Mild Unknown Verified 03/31/25 07:22 Exam Airway Mallampati Class: I TM Dist: <=3cm Neck ROM: Full Loose/Missing/Broken Teeth: No Heart: ok Lungs: ok Assessment and Plan Assessment Anesthesia Assessment: Anesthesia Plan Discussed Final Anesthetic Review Family History of Problems with Anesthesia: No History of Problems with Anesthesia: No NPO: Yes ASA Class: III Final Preanesthetic Review: No Changes in Pt Med Stat, Meds/Allgs Chart Reviewed, Consent Obtained/Reviewed and Anes Risks/Benef Reviewed Patient Risk: Intermediate Procedure Risk: Low Anesthetic Plan Anesthetic Plan: MAC: and Agree w/ Assess. and Plan Disposition: Standard PACU
[2025-03-31 07:09] VITALS: BMI 28.6
[2025-03-31] MEDS: Lactated Ringers 1,000 ML 100 ML IVCONT (07:14)
[2025-03-31 07:21] VITALS: BP 139/81; PULSE 70; RESP 18; TEMP 36.7; O2SAT 97
--- NOTE | 2025-03-31 07:42 | MHC.SHP ---
Pre-Procedural Eval Section A - 24 Hr Update-Section A only Date of Service: 03/31/25 Section B - Complete if H&P > 30 days Chief Complaint: Crohn's disease of large intestine Details of Present Illness: Crohns colitis Sleep apnea Cyst of right kidney Carotid artery plaque Atherosclerosis of abdominal aorta Present Medications: see Short Stay Collaborative assessment Medical History: No relevant PMH Allergies: Allergies Allergy/AdvReac Type Severity Reaction Status Date / Time dog dander Allergy Intermediate Unknown Verified 03/31/25 07:22 ciprofloxacin (From Cipro) Allergy Mild Unknown Verified 03/31/25 07:22 Review of Systems Review of Systems Comment: Ten point ROS negative Exam Exam Comment: Gen appear: No acute distress HEENT: no icterus Chest: No overt resp distress Abd: soft, nontender, nondistended Psych: Stable affect, answering questions appropriately Neuro: A/Ox3 noted to move all extremities spontaneously Ext: no peripheral edema Plan Diagnosis/Plan: Unchanged I have reviewed the history and physical and performed a pertinent physical examination on my patient. No changes have occurred unless specified. Time Spent With Patient Time: Total time managing care of this patient today ____ minutes.
[2025-03-31 09:09] VITALS: BP 109/62; PULSE 63; RESP 17; TEMP 36.9; O2SAT 95
--- NOTE | 2025-03-31 09:09 | P.OPN-COLO_ITS ---
Colonoscopy Operative Note Operative Note Date of Service: 03/31/25 Narrative: Procedure: Colonoscopy Indication: Crohns disease Endoscopist: Analisa Medeiros MD Anesthesia Provider: Dr Gordon Gunn Anesthesia type: MAC Instrument: Olympus [id number]-H190L Consent: Indication, risks vs benefits, and alternatives were discussed with the patient who gave written informed consent to proceed. EKG, pulse, pulse oximetry and blood pressure were monitored throughout the procedure. Please see anesthesia flowsheet. Procedure: The patient was brought to the procedure room and placed in the left lateral decubitus position. IV medications were administered by the anesthesia provider in attendance. A digital rectal exam was performed which was normal. A distal attachment cap was affixed to the tip of the colonoscope which was then inserted through the anus and advanced through the colon to the cecum at 75 cm,and terminal ileum. Appendiceal orifice and ileocecal valve were identified. Mucosa was carefully examined under high definition white light as the instrument was slowly withdrawn in a retrograde panoramic fashion. Retroflexion was performed in rectum. The procedure was not difficult. There were no immediate obvious complications. The quality of the prep was BBPS: 3+2+3 = adequate Withdrawal time 31 minutes. Limitations: No limitations. Findings: Mucosa: Normal to cecum and terminal ileum. No endoscopic evidence of ongoing inflammation. The terminal ileum was intubated to 20 cm deep. We then continued the exam with methylene blue for chromo endoscopy. Three raised erythematous and villous appearing lesion in transverse colon at 65 cm were noted measuring 2 mm to 6 mm. Cold forceps biopsies were taken to rule out underlying dysplasia. Protruding lesions: * 1 sessile polyp of size 3 mm in cecum. Cold forceps polypectomy was performed. The polyp was completely removed and retrieved. * 2 sessile polyp of size 2-9 mm in ascending colon. Cold snare polypectomy was performed. The polyps were completely removed and retrieved. * Medium internal hemorrhoids without stigmata of recent bleeding. Excavated lesions: * Mild to moderate diverticulosis of left sided colon. Impression: 1. Abnormal mucosa in transverse colon (biopsy) 2. Total of 3 polyps removed 3. Diverticulosis 3. Internal hemorrhoids Recommendations: - Follow path results. - Repeat colonoscopy in 2 years if no dysplasia noted on histology.
[2025-03-31 09:15] VITALS: BP 110/62; PULSE 58; RESP 17; O2SAT 95
[2025-03-31 09:30] VITALS: BP 124/75; PULSE 64; RESP 17; TEMP 36.6; O2SAT 96
== END 2025-03-31 09:46 | disposition home or self-care (01) ==
PROVIDERS: PCP Family Medicine; Visit Provider Internal Medicine
PROC: 0DJD8ZZ Inspection of Lower Intestinal Tract, Via Natural or Artificial Opening Endoscopic (ICD-10-PCS; CPT 45378; principal; 2025-03-31 08:40)
DX: K50.10 Crohn's disease of large intestine without complications (principal); K51.40 Inflammatory polyps of colon without complications; K63.5 Polyp of colon; K57.30 Diverticulosis of large intestine without perforation or abscess without bleeding; K63.9 Disease of intestine, unspecified; K64.8 Other hemorrhoids; I70.0 Atherosclerosis of aorta; I65.29 Occlusion and stenosis of unspecified carotid artery; N28.1 Cyst of kidney, acquired; G47.30 Sleep apnea, unspecified; Z79.899 Other long term (current) drug therapy; Z88.1 Allergy status to other antibiotic agents
CPT/HCPCS: 45385; 45380; 88305; J2003; J2704; Q9968

== ENCOUNTER → 2025-03-31 06:52 | Outpatient (BNV) | payer OTHER, SELFPAY | PROVIDERS: PCP Family Medicine; Visit Provider Internal Medicine | DX: K50.10 Crohn's disease of large intestine without complications (principal); D12.0 Benign neoplasm of cecum; K57.90 Diverticulosis of intestine, part unspecified, without perforation or abscess without bleeding; K64.8 Other hemorrhoids; D12.2 Benign neoplasm of ascending colon | CPT/HCPCS: 45380; 45385 ==

== ENCOUNTER 2025-05-10 10:20 | Outpatient (REF) | payer OTHER, SELFPAY ==
--- OUTSIDE RECORDS SUMMARY | 2024-03-16 06:00 | XMS_ITS ---
Author Organization [facility] [address] Address [address] [place] [address] Care Team Providers Care Support Assistant Name Role Phone JAY KELLEY Primary Care Provider [phone] Encounters Encounter Location Date Provider Diagnosis [facility] [address] [place] [address] 03/16/2024 JAY KELLEY Plan Of Treatment No Information Progress Notes * EFE FINLEY WDOB: 2 (65 yo M)Acc No.[id number]:03/16/2024 CPE Patient: Keon ROMANEFE Provider: Antonia Kelley MD :1960 A ge:64 Y S ex:Male Date:03/16/2024 Address:[address] [place], [place] [id number] Subjective: * Chief Complaints: * * Medical History: Objective: * Vitals: Assessment: Plan: * Treatment: * Images: Billing Information: * Visit Code: * Procedure Codes: Care Plan Details* * Electronic signature of STEPHEN KELLEY MD on 05/10/2025 at 01:28 PM EDT Sign off status: Pending * Provider: Antonia Kelley MD Date: 03/16/2024 Generated for Vanessa grady/Zoran/eTransmitting on: 05/10/2025 01:28 PM EDT
[2025-05-10 11:46] LABS: MANUAL DIFF FLAG NO
[2025-05-10 11:55] LABS: Hematocrit 46.3 % (42.0-52.0); Hemoglobin 15.9 g/dl (14.0-18.0); Imm Gran Abs Auto 0.03 X10*3/uL (0.00-0.03); Imm Gran Pct Auto 0.5 % (0.0-0.4); Lymphocytes Absolute Auto 1.7 X10*3/uL (1.2-4.9); Mean Corpuscular HGB Conc 34.3 g/dl (31.0-36.0); Mean Corpuscular Hemoglobin 31.5 pg (27.0-33.0); Mean Corpuscular Volume 91.7 fL (80.0-98.0); NRBC Abs Auto 0.000 X10*3/uL (0.0-0.012); NRBC Pct Auto 0.0 /100WBC (0.0-0.2); Platelet Count 237 X10*3/uL (160-400); Red Blood Count 5.05 X10*6/uL (4.60-5.80); White Blood Count 6.0 X10*3/uL (4.8-10.8)
[2025-05-10 12:43] LABS: Alanine Aminotransferase 17 U/L (0-40); Albumin Level 4.3 g/dL (3.5-5.0); Alkaline Phosphatase 56 U/L (39-117); Anion Gap 9 (12-20); Aspartate Amino Transferase 17 U/L (5-37); Blood Urea Nitrogen 17 mg/dL (9-16); Calcium 8.8 mg/dL (8.4-10.2); Carbon Dioxide 27 mmol/L (22-29); Chloride 109 mmol/L (96-108); Cholesterol 132 mg/dL (<200); Estimated Glomerular Filt Rate > 60; HDL Cholesterol 46 mg/dL (>40); Potassium 4.2 mmol/L (3.3-5.1); Sodium 141 mmol/L (135-145); Total Protein 7.0 g/dL (6.5-8.0); Triglycerides 62 mg/dL (<150)
--- OUTSIDE RECORDS SUMMARY | 2025-05-10 13:28 | XMS_ITS | Clinical Summary ---
Author Organization [facility] Address [address] [place] [address] Care Team Providers Care It Support Manager Name Role Phone Regi Kelley Primary Care Provider [phone] Allergies Active Allergy Reactions Criticality Noted Date [...] Zoster Vaccines (2 of 2) 10/11/2020 08/16/2020 Alcohol/Substance Use Screening 08/25/2024 COVID-19 Vaccine (1 - season) 2025 Influenza Vaccine (#1) 2025 07/19/2020 RSV Vaccine (60+ years old and patients) (1 - 1-dose 75+ series) 2037 Hepatitis B Vaccines Aged Out No long er eligible based on patient's age to complete this topic Procedures * Due to [place] [employer] law, this organization might not be sharing negative HIV tests. Procedure Name Priority Date/Time Associated Diagnosis Comments COLONOSCOPY 05/22/2017 8:30 AM EDT from Last 3 Months or Most Recently Relevant to Health Maintenance Results * Due to [place] [employer] law, this organization might not be sharing [...] Recently Relevant to Health Maintenance Insurance [facility] Advance Directives Documents on File Type Date Recorded Patient Director Of Analytical Development Expl anation Advance Directive 05/17/2014 12:00 AM Adva nce Care Directives Advance Directive 03/10/2012 12:00 AM cherie sales Dec Making (Adv.Dir) Care Teams It Support Manager Relationship Specialty Start Date End Date Regi Kelley [address] [place] [id number] PCP - General 07/26/20
--- OUTSIDE RECORDS SUMMARY | 2025-05-10 13:28 | XMS_ITS | Clinical Summary ---
Author Organization [address] [place] [address] [place] [phone] Phone Care Team Providers Care Senior Site Manager Name Role Phone Regi Kelley MD Primary Care Provider [phone] Social History Tobacco Use Types Packs/Day Years [...] - Weight 83.9 kg (185 lb) 10/25/2022 2:2 6 PM EST Height 175.3 cm (5' 9 [...] 07/24/2022 Hypertension/CHF/CAD Annual BMP Blood Test 10/11/2023 Depression Screening 08/25/2024 COVID-19 Vaccine ( - 2023-2 5 season) 2025 Influenza Vaccine (#1) 2025 RSV Immunization Adult [...] patient's age to complete this topic Procedures Procedure Name Priority Date/Time Associated Diagnosis Comments [place] SLEEP STUDY ATTENDED Routine 04/12/2025 10:01 AM EDT from Last 3 Months Results * General sleep study (04/12/2025 10:01 AM EDT) [facility] Provider SLEEP CENTER ORDERABLES F inal Result from Last 3 [id number] [employer] Care Teams Senior Site Manager Relationship Specialty Start Date End Date Regi Kelley MD [address] [place] [place] [address] PCP - General Internal Medicine 07/09/21
--- OUTSIDE RECORDS SUMMARY | 2025-05-10 13:28 | XMS_ITS | Patient Health Record ---
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 Problem Vitamin D deficiency (02824657) Vitamin D deficiency, unspecified (E55.9) Active confirmed Problem Insomnia (949426485) Insomnia, unspecified (G47.00) Active confirmed Problem Chronic rhinitis (87612825) Chronic rhinitis (J31.0) Active confirmed Problem Chronic sinusitis (63788011) Chronic sinusitis, unspecified (J32.9) Active confirmed Problem Crohn's disease (41125223) Crohn's disease, unspecified, without complications (K50.90) Active confirmed Problem Adult health examination (288946946) Encounter for general adult medical examination without abnormal findings (Z00.00) Active confirmed Problem Lipid screening (876645414) Encounter for screening for lipoid disorders (Z13.220) Active confirmed Problem Prediabetes (875469602) Prediabetes (R73.03) Active confirmed Problem Essential hypertension (84985534) Essential hypertension (I10) Active confirmed Problem Hyperlipidaemia (02773671) Hyperlipidemia, unspecified hyperlipidemia type (E78.5) Active confirmed Problem Anxiety (98991472) Anxiety (F41.9) Active confi rmed Problem Hypothyroidism (53782856) Hypothyroidism, unspecified type (E03.9) Active confirmed Problem Arthritis (2442645) Arthritis (M19.90) Active confirmed Problem Male hypogonadism (83902234) Hypogonadism in male (E29.1) Active confirmed Problem Obstructive sleep apnea syndrome (04104915) ROEL (obstructive sleep apnea) (G47.33) Active confirmed Problem Essential hypertension (03595657) Hypertension, unspecified type (I10) Active confirmed Problem Gastroesophageal reflux disease (566629745) Gastroesophageal reflux disease, unspecified whether esophagitis present (K21.9) Active confirmed Problem Screening for malignant neoplasm of prostate (720236247) Prostate cancer screening (Z12.5) Active confirmed Problem Atherosclerosis (71368054) Atherosclerosis (I70.90) Active confirmed Problem Syncope and collapse (066601796) Pre-syncope (R55) Active confirmed Problem Amnesia (23655179) Memory change (R41.3) Active confirmed Problem Rhinosinusitis (332381174) Rhinosinusitis (J32.9) Active confirmed Encounters Encounter Location Date Provider Diagnosis [facility] [address] [place] [phone] 05/12/2024 JAY BENEDICT [facility] [address] [facility] [place] [phone] 05/12/2024 JAY BENEDICT Plan Of Treatment Pending [...] FERRITIN 09/19/2023 HEMOGLOBIN A1C 09/19/2023 HEMOGLOBIN A1C 08/04/2018 HEMOGLOBIN A1C 11/20/2021 LIPID PANEL 11/20/2021 LIPID PANEL 07/18/2020 LIPID PANEL 08/04/2018 LIPID PANEL 09/19/2023 MAGNESIUM [...] (EVEJOSEPH OLIVERBLANQUITA) [address] [place] [address] [id number] EFE FINLEY Self - patient is the insured Medical (General) History Medical History History ICD Code Crohns SI Kidney stones (uric acid) Surgical History Surgery Date(Month/Year) deviated septum repair lasik bilateral shoulder ac joint repair bilateral hands tendon repair right hip tonsillectomy
--- OUTSIDE RECORDS SUMMARY | 2025-05-10 13:28 | XMS_ITS | Clinical Summary ---
Author Organization [facility] Address [address] [place] [id number] Care Team Providers Care Tug Master Name Role Phone Regi Kelley MD Primary Care Provider [phone] Allergies Active Allergy Reactions Criticality Noted Date [...] 1 3 Active Sodium Sulfate-Mag Sulfate-KCl (Sutab) 7809-922-729 MG TabIndications:C rohn's disease of large intestine without complication (HCC) Take 12 tablets by mouth once. One dose of 12 tablets on the Day Prior to procedure. One dose of 12 tablets on the Day Of the procedure. BIN: [id number] PCN: CN GROUP: [id number] ID: [id number] 24 tablet 3 Active mesalamine (LIALDA) 1.2 g tabletIndication s:Crohn's disease of large intestine without complication (HCC) Take 4 tablets (4.8 g total) by mouth daily. 120 tablet 3 3 Active Active Problems Problem Noted Date Diagnosed Date Crohn's disease of large intestine without compl ication 02/06/2023 Encounters Date Type Department Care Team Description 02/10/2025 Telephone [facility], [address] [place] [address] Alyssa Obrien Procedure Recall from [...] Vaccine (1 of 2) 2012 Influenza Vaccine 03/25/2025 COVID-19 Vaccine (1 - 2023-2 5 season) 2025 Colonoscopy 03/25/2033 03/25/2023 RSV Vaccine 60 years and old er and Patients (1 - 1-dose 75+ series) 2037 Hepatitis B Vaccines Aged Out No long er eligible based on patient's age to complete this topic Insurance [facility] Member Subscriber Plan / Payer (Ef fective 2021-Present) Name:Solis Thayer Relation to Subscriber:Self Name:Solis Thayer Payer ID:Not on file Type:Not on file Address: [address] [address] Care Teams Tug Master Relationship Specialty Start Date End Date Regi Kelley MD [address] [place] [address] PCP - General Internal Medicine 06/04/21
--- OUTSIDE RECORDS SUMMARY | 2025-05-10 13:28 | XMS_ITS | Patient Health Record ---
Author Organization [facility] Address [address] [place] [address] Care Team Providers Care International Nurse Name Role Phone Dominique(inactive) Jeovanny MACHADO Primary [...] negative. 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 Problems Problem Type SNOMED Code ICD Code Onset Dates Problem Status W/U Status Risk Notes Problem Esophageal reflux (305721416) Esophageal reflux (530.81) Active confirmed Problem Pak's esophagus (561786553) Pak's esophagus (530.85) Active confirmed Problem Crohn's disease of large bowel (6206282) Regional enteritis of large intestine (555.1) Active confirmed Plan Of Treatment Future Test Test Name Order Date UPPER GI ENDOSCOPY 11/04/2011 COLONOSCOPY 11/04/2011 Insurance Providers Payer Name Payer Address Payer Phone Subscriber Number Group Number Insured Name Patient Relationship to Insured Coverage Start Date Coverage End Date [facility] [address] [facility] [place], [place] [id number] [phone] [id number] EFE FINLEY Self - patient is the insured Medical (General) History Medical History History ICD Code Crohn's disease PTSD Pak's esophagus Surgical History Surgery Date(Month/Year) tonsillectomy deviated septum repair shoulder surgery repair of tendon injury on the right marisabel morrison
--- OUTSIDE RECORDS SUMMARY | 2025-05-10 13:28 | XMS_ITS | Encounter Summary ---
Author Organization [facility] Address [address] [place] [address] Care Team Providers Care Scale And Skip Car Operator Name Role Phone Regi Kelley MD Primary Care Provider [phone] Encounter Details Date Type Department Care Team (Late st Contact Info) Description 03/26/2023 Scanned Document [facility] [address] [place] [phone] Lebron Watkins MD [address] [place] [address] Social History Tobacco Use Types Packs/Day Years [...] on filedocumented in this encounter Care Teams Scale And Skip Car Operator Relationship Specialty Start Date End Date Regi Kelley MD [address] [place] [id number] PCP - General Internal Medicine 06/04/21 documented as of this encounter
[2025-05-10 14:55] LABS: Appearance Urine Clear; Glucose Urine UA Negative (Negative); PH 5.0 (5.0-9.0); Specific Gravity - Urine 1.020 (1.005-1.025)
[2025-05-10 15:39] LABS: Microalbum/Creatinine Ratio Ur 4.7 ug/mg cr (<30)
== END 2025-05-10 10:21 | disposition home or self-care (01) ==
LOC: HO.WFDLDS 10:20
PROVIDERS: Visit Provider Family Medicine
DX: Z00.00 Encounter for general adult medical examination without abnormal findings (principal); I10 Essential (primary) hypertension; E55.9 Vitamin D deficiency, unspecified; Z12.5 Encounter for screening for malignant neoplasm of prostate
CPT/HCPCS: 36415; 80053; 80061; 81003; 82043; 82306; 82570; 84153; 84443; 85025

== ENCOUNTER 2025-05-30 08:45 | Outpatient (AMB) | payer OTHER, SELFPAY ==
--- OUTSIDE RECORDS SUMMARY | 2024-03-16 06:00 | XMS_ITS ---
Author Organization [facility] [address] Address [address] [place] [address] Care Team Providers Care Black Oxide Operator Name Role Phone JAY KELLEY Primary Care Provider [phone] Encounters Encounter Location Date Provider Diagnosis [facility] [address] [place] [place] [address] 03/16/2024 JAY KELLEY Plan Of Treatment No Information Progress Notes * EFE FINLEY WDOB: 2 (65 yo M)Acc No.[id number]:03/16/2024 CPE Patient: Keon ROMAN EFE [place] Provider: Antonia Kelley MD :1960 A ge:64 Y S ex:Male Date:03/16/2024 Address:[address] [place], [place] [id number] Subjective: * Chief Complaints: * * Medical History: Objective: * Vitals: Assessment: Plan: * Treatment: * Images: Billing Information: * Visit Code: * Procedure Codes: Care Plan Details* * Electronic signature of STEPHEN KELLEY MD on 05/30/2025 at 09:31 AM EDT Sign off status: Pending * Provider: Antonia Kelley MD Date: 0 03/16/2024 Generated for Vanessa grady/Zoran/eTransmitting on: 1 09:31 AM EDT
--- NOTE | 2025-05-30 08:55 | MHC.PC.OV ---
Vital Signs 05/30/25 09:00 Height 5 ft 9 in Weight 192 lb 6 oz BMI 28.4 BP 118/80 Blood Pressure Location Rt brachial Position Sitting Respiration 15 Pulse 70 Pulse Source Pulse Oximeter Temp 97.6 F Temp Source Temporal Artery Scan Pulse Oximetry (%) 96 Oxygen Delivery Method Room Air Intake Visit Reasons: cpe Intake Note: Solis presents in the office today for his annual physical. Allergies dog dander Allergy (Intermediate, Verified 05/30/25 08:59) Unknown ciprofloxacin (From Cipro) Allergy (Mild, Verified 05/30/25 08:59) Unknown Medication List - Last Reconciled 05/30/25 by Macario Solano MD valsartan 80 mg PO DAILY Tobacco use date assessed: 05/30/25 Dental Screening Dental Screen Date: 05/30/25 Did you have a dental visit in the last 12 months?: No Did you have a dental problem in the last 6 months where you did not have access to dental care?: No Was dental information given to patient?: Patient has dentist HPI cpe HPI Details 65 y/o male presents for a CPE with f/u labs and health maintenance. Labs drawn 05/10/25. Reviewed labs with pt. Fasting glucose 108. A1c today 5.8%. Triglycerides 62. TC 132. LDL 74. HDL 46. Blood pressure today 118/80, 70p. He is on valsartan 80mg daily. Has been having complaints of low libido. Notes joint pain, fatigue. [facility] Medical History (Updated 05/30/25 @ 10:06 by Chauncey Tomlinson) Lumbar spine strain Sleep apnea Cyst of right kidney Carotid artery plaque Atherosclerosis of abdominal aorta Surgical History Hx of colonoscopy History of esophagogastroduodenoscopy (EGD) Hx of hand surgery History of shoulder surgery Family History Father Cancer Mother Arthritis Social History (Updated 05/30/25 @ 09:00 by Marleni Osuna CMA) Household Members: None Both parents involved: No Caregiver staying overnight: No Housing: House Are you a primary gericare aide teacher to a significant other at home: No Do you presently have visiting nurse or other home services: No Alcohol intake: never Patient Tobacco Use Status: Never used Tobacco Tobacco use type: Cigarette e-Cigarette/Vaping Use: Never Used Second Hand Smoke Exposure: No Special leila needs: No service: Yes Current occupational status: retired Cognitive needs: No Hearing needs: No Vision needs: Yes (Patient wears glasses.) Questionnaire Thrive Questionnaire Date Thrive assessed: 05/30/25 I am a: Patient What is your living situation today?: I choose not to answer this question Within the past 12 months, did the food you bought not last and you didn't have the money to get more?: I choose not to answer this question Within the past 12 months, did you worry whether your food would run out before you got money to buy more?: I choose not to answer this question Do you have trouble paying for medicines?: I choose not to answer this question Do you have trouble getting transportation to medical appointments?: I choose not to answer this question Do you have trouble paying your heating and electricity bill?: I choose not to answer this question Do you have trouble taking care of your child, family member or friend?: I choose not to answer this question Do you have trouble with day-to-day activities such as bathing, preparing meals, shopping, managing finances, etc.?: I choose not to answer this question Are you currently unemployed and looking for a job?: I choose not to answer this question Are you interested in more education?: I choose not to answer this question Please select the resources that you would like help with: None Currently or been in a relationship where the following occur: I choose not to answer THRIVE Score: 0 AUDIT C Alcohol Use Questionnaire (AUDIT-C) 1. How often do you have a drink containing alcohol?: Never 3. How often do you have six or more drinks on one occasion?: Never Total Score: 0 TEGAN-7 AMB Questionnaire TEGAN-7 Date TEGAN - 7 assessed: 05/30/25 Source: Developed by Drs. Keyshawn Rodriguez, Ladonna Spears, Clovis Frances and colleagues, with an educational maggie from [employer]. Review of Systems Const Denies chills, Denies fatigue, Denies fever(s), Denies headache(s) and Denies weakness Eyes Denies change in vision ENT Denies dizziness, Denies headache(s), Denies hearing loss, Denies nasal congestion, Denies sinus pain, Denies sinus pressure and Denies sore throat Card Denies chest pain, Denies lightheadedness, Denies dyspnea and Denies other (palpitations) Resp Denies cough, Denies dyspnea and Denies wheezing GI Denies abdominal pain, Denies melena, Denies hematochezia, Denies change in bowel habits, Denies dyspepsia and Denies nausea Denies hematuria and Denies dysuria Musc Denies abnormal gait, Denies myalgias, Denies arthralgias, Denies numbness and Denies tingling Skin/Breast Denies rash, Denies unusual bruising and Denies wounds Neuro Denies abnormal gait, Denies dizziness, Denies headache(s), Denies memory loss, Denies numbness, Denies Sensory deficit (Neuro), Denies tingling and Denies weakness Psych Denies anxiety, Denies depression and Denies memory loss Endo Denies cold intolerance, Denies fatigue, Denies heat intolerance, Denies polydipsia and Denies polyuria Tramaine/Lymph Denies easy bleeding and Denies easy bruising Aller/Immun Denies wheezing Physical exam (Primary Care) Vital Signs: Last Vital Signs Temp 97.6 F 05/30/25 09:00 Pulse 70 05/30/25 09:00 Resp 15 05/30/25 09:00 BP 118/80 05/30/25 09:00 Pulse Ox 96 05/30/25 09:00 Oxygen Delivery Method Room Air 05/30/25 09:00 BMI result Body Mass Index 28.4 Tobacco/Smoking Status: Tobacco use Status Tobacco use date assessed 05/30/25 05/30/25 09:03 Patient Tobacco Use Status Never used Tobacco 05/30/25 09:03 Tobacco use type Cigarette 05/30/25 09:03 e-Cigarette/Vaping Use Never Used 05/30/25 09:03 Thrive Assessment: Date of Thrive Assessment Date Thrive assessed 05/30/25 05/30/25 09:03 Currently or been in a relationship where the following occur: I choose not to answer Const General: no acute distress, well developed, alert and awake Nutritional Appearance: well nourished Orientation/consciousness: patient oriented x3 HENMT Head: Yes normocephalic and Yes atraumatic Ears: hearing grossly normal bilaterally and TM's normal bilaterally General nose exam: Normal external nose present and Normal nares present Mouth: Normal oral and palatal mucosa present and moist mucous membranes Teeth and gingiva: dentition normal Throat: Yes posterior oropharynx normal Eyes General: appearance normal, both eyes and all related structures Pupils: Equal, round and reactive pupils present and Pupil accommodation reflex normal EOM: EOMs intact bilaterally Neck Neck: Yes normal visual inspection, Yes no lymphadenopathy and Yes trachea midline Thyroid: Thyroid normal Carotids: no bruits Lymphatic: no lymphadenopathy noted Chest Chest palpation & inspection: normal inspection of the chest Resp Effort & Inspection: normal respiratory effort Auscultation: clear to auscultation bilaterally Cardio Rate: regular rate Rhythm: regular rhythm Heart sounds: S1 normal heart sound present, S2 normal heart sound present, no gallops, no murmurs and no rubs Bruits: no abdominal aortic bruits and no carotid bruits GI Palpation (GI): No Abdominal aortic bruit present, Soft to palpation, nontender, No hepatosplenomegaly present and No Rebound tenderness present Auscultation: normal bowel sounds General: Yes no CVA tenderness Back/Spine/Pelvis Back: no CVA tenderness Cervical Spine: cervical ROM normal and No Cervical spine tenderness Thoracic/Lumbar Spine: thoraco-lumbar ROM normal, No pain with thoraco-lumbar ROM, No thoracic spinal tenderness and No lumbar spinal tenderness Skin Lesions: no lesions Rashes: no rashes Trauma: no lacerations or abrasions Wounds: no wounds Nails: normal Neuro General: patient oriented x3 Cranial nerves: Yes Equal, round and reactive pupils present Cognition (Neuro): normal cognition Gait exam (Neuro): Normal gait present Motor exam (neuro): 5/5 motor strength present throughout Sensory Exam: No Sensory deficit (Neuro) Deep tendon reflexes (DTR's): Right patellar reflex intensity grade: 2+ and Left patellar reflex intensity grade: 2+ Extrem General: Yes normal to inspection and No edema Psych Appearance: grossly normal Affect: normal affect Attitude: cooperative Thought process: Normal thought process present Results AMB Hemoglobin A1c AMB Hemoglobin A1c 5.8 % Last Edit by Marleni Osuna CMA on 05/30/25 09:16 Results Reviewed Results Reviewed: Laboratory Last Values Hgb A1c (Clinic) 5.8 % (4.0-6.0) 05/30/25 09:11 Coding Level of Care Code Est Pt Level 4 (57597) Est Pt Prev Care 40-64y(13515) Diagnoses Adult general medical exam Z00.00 Pre-diabetes R73.03 Hypertension I10 Decreased libido R68.82 Crohn's colitis K50.10 Coronary artery disease I25.10 Hyperlipidemia E78.5 Screening for colon cancer Z12.11 Screening for prostate cancer Z12.5 Joint pain M25.50 Fatigue R53.83 Polyarthralgia M25.50 Assessment & Plan Assessment & Plan (1) Adult general medical exam: Code(s): Z00.00 - Encounter for general adult medical examination without abnormal findings Category: Medical Plan: [age] year male presents for complete physical exam Encouraged healthy diet with lifestyle of exercise (2) Pre-diabetes: Code(s): R73.03 - Prediabetes Category: Medical Plan: A1c 5.8%; pre diabetes range. Continue working on diet low in sugars and starches (3) Hypertension: Code(s): I10 - Essential (primary) hypertension Category: Medical Plan: Blood pressure 118/80 today. Fairly good control. Goal is less than 130/80 Continue valsartan Continue exercise and weight control (4) Decreased libido: Code(s): R68.82 - Decreased libido Category: Medical Plan: Ongoing decreased libido Had check testosterone levels in the past and he is also discuss this with his urologist. Will refer him to endocrinology (5) Crohn's colitis: Code(s): K50.10 - Crohn's disease of large intestine without complications Category: Medical Plan: Followed by Dr. Medeiros, gastroenterology He notes joint pain and fatigue Patient would like lab work including rheumatoid factor checked. Labs ordered (6) Coronary artery disease: Code(s): I25.10 - Atherosclerotic heart disease of yuhaaviatam coronary artery without angina pectoris Category: Medical Plan: Coronary artery disease based coronary calcium score Had seen Cardiology at [facility] but wanted a 2nd opinion. [facility] dope weigh operator had recommended a statin. Patient does not to start this. Referred to Cardiology at [facility] (7) Hyperlipidemia: Code(s): E78.5 - Hyperlipidemia, unspecified Category: Medical Plan: LDL cholesterol goal is less than 70 Continue working at a diet low in saturated fats and cholesterol Continue exercise and weight loss Will continue to monitor (8) Screening for colon cancer: Code(s): Z12.11 - Encounter for screening for malignant neoplasm of colon Category: Medical Plan: Follow-up with Gastroenterology as recommended (9) Screening for prostate cancer: Code(s): Z12.5 - Encounter for screening for malignant neoplasm of prostate Category: Medical Plan: PSA within range Follow-up with urology as recommended (10) Joint pain: Code(s): M25.50 - Pain in unspecified joint Category: Medical Plan: Joint pain and fatigue Patient would like additional lab work to evaluate-ordered (11) Fatigue: Code(s): R53.83 - Other fatigue Category: Medical Plan: As above (12) Polyarthralgia: Code(s): M25.50 - Pain in unspecified joint Category: Medical Plan: As above Plan I spent an additional 35 (beyond CPE) minutes ... Labs, Sxs, Counselling pt Orders: Orders AMB Hemoglobin A1c Today R73.01 - Impaired fasting glucose Rheumatoid Factor Today M25.50 - Pain in unspecified joint, R53.83 - Other fatigue Comprehensive [place]. Panel Fast Today I25.10 - Atherosclerotic heart disease of yuhaaviatam coronary artery without angina pectoris, Z00.00 - Encounter for general adult medical examination without abnormal findings CRP High Sensitivity Today R53.83 - Other fatigue Erythrocyte Sedimentation Rate Today R53.83 - Other fatigue Lipid Panel Today I25.10 - Atherosclerotic heart disease of yuhaaviatam coronary artery without angina pectoris, Z00.00 - Encounter for general adult medical examination without abnormal findings Hemoglobin A1c Today R73.01 - Impaired fasting glucose, R73.03 - Prediabetes Referrals Endocrinology Referral R68.82 - Decreased libido Cardiology Referral I10 - Essential (primary) hypertension, I25.10 - Atherosclerotic heart disease of yuhaaviatam coronary artery without angina pectoris, I65.29 - Occlusion and stenosis of unspecified carotid artery, I70.0 - Atherosclerosis of aorta
[2025-05-30 09:00] VITALS: BP 118/80; PULSE 70; RESP 15; TEMP 36.4; O2SAT 96; BMI 28.4
--- OUTSIDE RECORDS SUMMARY | 2025-05-30 09:31 | XMS_ITS | Encounter Summary ---
Author Organization [facility] Address [address] [place] [address] Care Team Providers Care Duct Installer Name Role Phone Regi Kelley MD Primary Care Provider [phone] Encounter Details Date Type Department Care Team (Late st Contact Info) Description 03/26/2023 Scanned Document [facility] [address] [place] [address] [phone] Lebron Watkins MD [address] [place] [address] Social History Tobacco Use Types Packs/Day Years [...] on filedocumented in this encounter Care Teams Duct Installer Relationship Specialty Start Date End Date Regi Kelley MD [address] [place] [id number] PCP - General Internal Medicine 06/04/21 documented as of this encounter
--- OUTSIDE RECORDS SUMMARY | 2025-05-30 09:31 | XMS_ITS | Clinical Summary ---
Author Organization [address] [place] [address] [place] [phone] Phone Care Team Providers Care Hazardous Substances Scientist Name Role Phone Regi Kelley MD Primary [...] Health Maintenance Due Date Last Done Comments Colorectal Cancer Screening: Colonoscopy 1960 DTaP,Tdap,and Td Vaccines (1 - Tdap) 1981 Pneumococcal Vaccine: 50+ Ye ars (1 of 1 - PCV) 2012 Zoster Vaccines (1 of 2) 2012 Cholesterol Screening (Lipid Panel) 07/24/2022 HIV Screening 07/24/2022 Hepatitis C Screening 07/24/2022 Social Influencers of Health Screening 07/24/2022 Hypertension/CHF/CAD Annual BMP Blood Test 10/11/2023 Depression Screening 08/25/2024 COVID-19 Vaccine ( - 2024-2 5 season) 2025 Influenza Vaccine (#1) 2025 [...] Procedure Name Priority Date/Time Associated Diagnosis Comments TX SLEEP STUDY ATTENDED Routine 04/12/2025 10:01 AM EDT from Last 3 Months Results * General sleep study (04/12/2025 10:01 AM EDT) Historical Provider SLEEP CENTER ORDERABLES F inal Result from Last [address] [place] [id number] [facility] Care Teams Hazardous Substances Scientist Relationship Specialty Start Date End Date Regi Kelley MD [address] [place] [address] [place] [address] PCP - General Internal Medicine 07/09/21
--- OUTSIDE RECORDS SUMMARY | 2025-05-30 09:31 | XMS_ITS | Clinical Summary ---
Author Organization [facility] Address [address] [place] [address] Care Team Providers Care Caltrans Equipment Operator Name Role Phone Regi Kelley MD Primary Care Provider [phone] Allergies Active Allergy Reactions Criticality Noted Date [...] 1 3 Active Sodium Sulfate-Mag Sulfate-KCl (Sutab) 3302-874-477 MG TabIndications:C rohn's disease of large intestine without complication (HCC) Take 12 tablets by mouth once. One dose of 12 tablets on the Day Prior to procedure. One dose of 12 tablets on the Day Of the procedure. BIN: [id number] PCN: CN GROUP: [id number] ID: [id number] 24 tablet 3 Active mesalamine (LIALDA) 1.2 [...] patient's age to complete this topic Insurance [facility] Care Teams Caltrans Equipment Operator Relationship Specialty Start Date End Date Regi Kelley MD [address] [place] [id number] PCP - General Internal Medicine 06/04/21
--- OUTSIDE RECORDS SUMMARY | 2025-05-30 09:31 | XMS_ITS | Patient Health Record ---
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 Problem Vitamin D deficiency (29185273) Vitamin D deficiency, unspecified (E55.9) Active confirmed Problem Insomnia (094951350) Insomnia, unspecified (G47.00) Active confirmed Problem Chronic rhinitis (41551286) Chronic rhinitis (J31.0) Active confirmed Problem Chronic sinusitis (59722385) Chronic sinusitis, unspecified (J32.9) Active confirmed Problem Crohn's disease (62443028) Crohn's disease, unspecified, without complications (K50.90) Active confirmed Problem Adult health examination (943631656) Encounter for general adult medical examination without abnormal findings (Z00.00) Active confirmed Problem Lipid screening (827387160) Encounter for screening for lipoid disorders (Z13.220) Active confirmed Problem Prediabetes (222637782) Prediabetes (R73.03) Active confirmed Problem Essential hypertension (01655018) Essential hypertension (I10) Active confirmed Problem Hyperlipidaemia (30409162) Hyperlipidemia, unspecified hyperlipidemia type (E78.5) Active confirmed Problem Anxiety (75387343) Anxiety (F41.9) Active confi rmed Problem Hypothyroidism (73102321) Hypothyroidism, unspecified type (E03.9) Active confirmed Problem Arthritis (4245208) Arthritis (M19.90) Active confirmed Problem Male hypogonadism (05866817) Hypogonadism in male (E29.1) Active confirmed Problem Obstructive sleep apnea syndrome (50699750) ROEL (obstructive sleep apnea) (G47.33) Active confirmed Problem Essential hypertension (66970017) Hypertension, unspecified type (I10) Active confirmed Problem Gastroesophageal reflux disease (569273831) Gastroesophageal reflux disease, unspecified whether esophagitis present (K21.9) Active confirmed Problem Screening for malignant neoplasm of prostate (629997947) Prostate cancer screening (Z12.5) Active confirmed Problem Atherosclerosis (49711975) Atherosclerosis (I70.90) Active confirmed Problem Syncope and collapse (337520359) Pre-syncope (R55) Active confirmed Problem Amnesia (40341919) Memory change (R41.3) Active confirmed Problem Rhinosinusitis (489178332) Rhinosinusitis (J32.9) Active confirmed Plan Of Treatment Pending Test Test Name [...] COMPREHENSIVE METABOLIC PANEL 07/18/2020 COMPREHENSIVE METABOLIC PANEL 08/04/2018 COMPREHENSIVE METABOLIC PANEL 11/20/2021 COMPREHENSIVE METABOLIC PANEL 09/19/2023 CRP, HIGH SENSITIVITY 09/19/2023 FERRITIN 09/19/2023 HEMOGLOBIN A1C 09/19/2023 HEMOGLOBIN A1C 08/04/2018 HEMOGLOBIN A1C 11/20/2021 LIPID PANEL 07/18/2020 LIPID PANEL 08/04/2018 LIPID PANEL 11/20/2021 LIPID PANEL 09/19/2023 MAGNESIUM [...] End Date [employer] [address] [place] [address] [id number] EFE FINLEY Self - patient is the insured Medical (General) History Medical History History ICD Code Crohns SI Kidney stones (uric acid) Surgical History Surgery Date(Month/Year) deviated septum repair lasik bilateral shoulder ac joint repair bilateral hands tendon repair right hip tonsillectomy
--- OUTSIDE RECORDS SUMMARY | 2025-05-30 09:31 | XMS_ITS | Clinical Summary ---
Author Organization [facility] Address [address] [place] [address] Care Team Providers Care Screw Supervisor Name Role Phone Unavailable Primary Care [...] topic Solis Thayer Personal/Family Self 1960 [address] [facility] [place] [address]
--- OUTSIDE RECORDS SUMMARY | 2025-05-30 09:31 | XMS_ITS | Patient Health Record ---
Author Organization [facility] Address [address] [place] [address] Care Team Providers Care Manufacturing Process Engineer Name Role Phone Dominique(inactive) Jeovanny MACHADO Primary Care Provider U Mayo Penaloza Jr Unavailable [phone] Reason For Referral No Information Medications Medication [...] is negative. 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 Problems Problem Type SNOMED Code ICD Code Onset Dates Problem Status W/U Status Risk Notes Problem Esophageal reflux (345808773) Esophageal reflux (530.81) Active confirmed Problem Pak's esophagus (759561407) Pak's esophagus (530.85) Active confirmed Problem Crohn's disease of large bowel (1066996) Regional enteritis of large intestine (555.1) Active confirmed Plan Of Treatment Future Test Test Name Order Date UPPER GI ENDOSCOPY 11/04/2011 COLONOSCOPY 11/04/2011 Insurance Providers Payer Name Payer Address Payer Phone Subscriber Number Group Number Insured Name Patient Relationship to Insured Coverage Start Date Coverage End Date [facility] [address] [facility] [place], [place] [phone] [id number] EFE FINLEY Self - patient is the insured Medical (General) History Medical History History ICD Code Crohn's disease PTSD Pak's esophagus Surgical History Surgery Date(Month/Year) tonsillectomy deviated septum repair shoulder surgery repair of tendon injury on the right marisabel morrison
--- OUTSIDE RECORDS SUMMARY | 2025-05-30 09:31 | XMS_ITS | Clinical Summary ---
Author Organization [facility] Address [address] [place] [address] Care Team Providers Care Personal Fitness Trainer Name Role Phone Regi Kelley Primary Care Provider [phone] Allergies Active Allergy Reactions Criticality Noted Date [...] EVENING MEAL. Quantity: 360; Refills: 1 LEXUS BOLNAOS MD; Started 22-Oct-2012 Active 10/22/2012 Active Active [...] complete this topic Procedures * Due to [place] [employer] law, this organization might not be sharing negative HIV tests. Procedure Name Priority Date/Time Associated Diagnosis Comments COLONOSCOPY 05/22/2017 8:30 AM EDT from Last 3 Months or Most Recently Relevant to Health Maintenance Results * Due to [place] [employer] law, this organization might not be sharing [...] Most Recently Relevant to Health Maintenance Insurance [facility] Advance Directives Documents on File Type Date Recorded Patient [employer] Weapons Sergeant Expl anation Advance Directive 05/17/2014 12:00 AM Adva nce Care Directives Advance Directive 03/10/2012 12:00 AM cherie sales Dec Making (Adv.Dir) Care Teams Personal Fitness Trainer Relationship Specialty Start Date End Date Regi Kelley [address] [place] [id number] PCP - General 07/26/20
== END 2025-05-30 10:06 | disposition home or self-care (01) ==
LOC: HO.HMCFM 08:46
PROVIDERS: PCP Family Medicine; Visit Provider Family Medicine
DX: R73.01 Impaired fasting glucose (principal)

== ENCOUNTER → 2025-05-30 08:45 | Outpatient (BNVA) | payer OTHER, SELFPAY | PROVIDERS: PCP Family Medicine; Visit Provider Family Medicine | DX: Z00.00 Encounter for general adult medical examination without abnormal findings (principal); R73.03 Prediabetes; I10 Essential (primary) hypertension; R68.82 Decreased libido; K50.10 Crohn's disease of large intestine without complications; I25.10 Atherosclerotic heart disease of native coronary artery without angina pectoris; E78.5 Hyperlipidemia, unspecified; M25.50 Pain in unspecified joint; R53.83 Other fatigue; R73.01 Impaired fasting glucose | CPT/HCPCS: 83036; 96127 ==

== ENCOUNTER 2025-06-21 15:47 | Outpatient (AMB) | payer OTHER, SELFPAY ==
--- OUTSIDE RECORDS SUMMARY | 2024-03-16 06:00 | XMS_ITS ---
Author Organization [facility] [address] Address [address] [place] [address] Care Team Providers Care Store Team Leader Name Role Phone JAY KELLEY Primary Care Provider Encounters Encounter Location Date Provider Diagnosis [facility] [address] [place] [place] [address] 03/16/2024 JAY KELLEY Plan Of Treatment No Information Progress Notes * EFE FINLEY WDOB: 2 (65 yo M)Acc No.[id number]:03/16/2024 CPE Patient: Keon ROMANEFE Provider: Antonia Kelley MD :1960 A ge:64 Y S ex:Male Date:03/16/2024 Address:[address] [place], [place] [id number] Subjective: * Chief Complaints: * * Medical History: Objective: * Vitals: Assessment: Plan: * Treatment: * Images: Billing Information: * Visit Code: * Procedure Codes: Care Plan Details* * Electronic signature of STEPHEN KELLEY MD on 06/21/2025 at 08:02 PM EDT Sign off status: Pending * Provider: Antonia Kelley MD Date: 0 03/16/2024 Generated for Vanessa grady/Zoran/eTransmitting on: 1 08:02 PM EDT
[2025-06-21 15:50] VITALS: BP 120/76; PULSE 87; TEMP 36.8; O2SAT 96; BMI 28.9
--- NOTE | 2025-06-21 15:50 | MHC.OFFWIV ---
Intake Vital Signs 06/21/25 15:50 Height 5 ft 9 in Weight 196 lb BMI 28.9 BP 120/76 Blood Pressure Location Lt brachial Position Sitting Pulse 87 Pulse Source Pulse Oximeter Temp 98.3 F Temp Source Oral Pulse Oximetry (%) 96 Oxygen Delivery Method Room Air Intake Visit Reasons: EP-?sinus infection Intake Note: pt presents with non resolving head cold, recurrent yellow to clear sinus discharge with bilateral ear pain, head pressure and lightheaded x5 wks Patient Tobacco Use Status: Never used Tobacco Allergies dog dander Allergy (Intermediate, Verified 06/21/25 15:54) Unknown ciprofloxacin (From Cipro) Allergy (Mild, Verified 06/21/25 15:54) Unknown Do you need a note to return to daycare/school/sports/work: No HPI HPI Comments History of Present Illness Details History of Present Illness - The patient is a 65-year-old male presenting with symptoms suggestive of sinusitis. - Reports cold symptoms for five weeks. - He was having nasal discharge and post nasal drip. - He now has sinus pressure and pain with yellow nasal discharge. - History of ear infections, last noted in January. - Currently using Sudafed for symptom relief, but not Flonase. - Reluctant to use antibiotics due to Crohn's disease and concerns about gut health. - He denies fever, chills, SAEZ, CP, SOB, abd pain, n/v/d, dizziness, or weakness. Physical Exam General: Cooperative, healthy appearing, comfortable, no acute distress and well developed Head: Normal to inspection Ears: Hearing grossly normal bilaterally. No tragus or mastoid tenderness noted. Auditory canals clear bilaterally. TM's normal, not bulging. No fluid noted. Nose: Normal external nose present. Moist mucosa. Turbinates normal bilaterally, not boggy. Face and sinus: Tenderness to palpation of the frontal and maxillary sinuses bilaterally. Neck: Normal visual inspection and Yes full ROM. No lymphadenopathy noted. Respiratory: Normal respiratory effort and able to speak in complete sentences. Clear to auscultation bilaterally Cardiovascular: Regular rate and rhythm. Normal S1 and S2 GI: Normal to inspection. Soft to palpation and nontender, nondistended. No guarding noted. Skin: No rashes or lesions noted [facility] Medical History (Updated 05/30/25 @ 10:06 by Chauncey Tomlinson) Lumbar spine strain Sleep apnea Cyst of right kidney Carotid artery plaque Atherosclerosis of abdominal aorta Surgical History Hx of colonoscopy History of esophagogastroduodenoscopy (EGD) Hx of hand surgery History of shoulder surgery Family History Father Cancer Mother Arthritis Social History (Updated 05/30/25 @ 09:00 by Marleni Osuna CMA) Household Members: None Both parents involved: No Caregiver staying overnight: No Housing: House Are you a primary healthcare advisory services manager to a significant other at home: No Do you presently have visiting nurse or other home services: No Alcohol intake: never Patient Tobacco Use Status: Never used Tobacco Tobacco use type: Cigarette e-Cigarette/Vaping Use: Never Used Second Hand Smoke Exposure: No Special leila needs: No service: Yes Current occupational status: retired Cognitive needs: No Hearing needs: No Vision needs: Yes (Patient wears glasses.) Review of Systems Const All systems reviewed & are unremarkable except as noted in HPI and below Physical Exam Vital Signs: Last Vital Signs Temp 98.3 F 06/21/25 15:50 Pulse 87 06/21/25 15:50 BP 120/76 06/21/25 15:50 Pulse Ox 96 06/21/25 15:50 Oxygen Delivery Method Room Air 06/21/25 15:50 BMI result Body Mass Index 28.9 Assessment & Plan Assessment & Plan (1) Sinus pressure: Code(s): J34.89 - Other specified disorders of nose and nasal sinuses Plan Most likely sinusitis vs allergies vs viral illness plan - Discussed with the patient the treatment plan - Patient does not like antibiotics due to his Crohn's disease - Recommended antibiotics to treat the sinusitis if the prednisone, sudafed and Flonase does not work - Tylenol or Motrin as needed for pain or fever - follow up with PCP Medications: New prednisone 40 mg (2 x 20 mg) PO DAILY 10 tabs 0RF 5 days fluticasone propionate 50 mcg/actuation administer into each nostril 1 spray intranasal Q12H 16 grams 0RF azithromycin For 250 mg dose pack: take 500 mg today (day 1), then 250 mg for 4 days (days 2-5) PO 6 tabs 0RF Coding Level of Care Code Est Pt Level 3 (22188) Diagnoses Sinus pressure J34.89
--- OUTSIDE RECORDS SUMMARY | 2025-06-21 20:02 | XMS_ITS | Clinical Summary ---
Author Organization [address] [place] [address] [place] [phone] Phone Care Team Providers Care Blindstitch Lining Feller Name Role Phone Regi Kelley MD Primary Care Provider [phone] Social History Tobacco Use Types Packs/Day Years [...] Procedure Name Priority Date/Time Associated Diagnosis Comments [place] SLEEP STUDY ATTENDED Routine 04/12/2025 10:01 AM EDT from Last 3 Months Results * General sleep study (04/12/2025 10:01 AM EDT) Historical Provider SLEEP CENTER ORDERABLES F inal Result from Last 3 [place] [id number] [facility] Care Teams Blindstitch Lining Feller Relationship Specialty Start Date End Date Regi Kelley MD [address] [place] [address] [place] [address] PCP - General Internal Medicine 07/09/21
--- OUTSIDE RECORDS SUMMARY | 2025-06-21 20:02 | XMS_ITS | Clinical Summary ---
Author Organization [facility] Address [address] [place] [address] Care Team Providers Care Station Engineer Chief Name Role Phone Unavailable Primary Care Provider [...] Solis Thayer Personal/Family Self 1960 [address] [facility] [place] [address]
--- OUTSIDE RECORDS SUMMARY | 2025-06-21 20:02 | XMS_ITS | Patient Health Record ---
Author Organization [facility] Address [address] [place] [address] Care Team Providers Care Auger Machine Offbearer Name Role Phone Dominique(inactive) Jeovanny MACHADO Primary Care Provider U Mayo Penaloza Jr Unavailable [phone] Reason For Referral No Information Medications Medication SIG (Take, Route, Fr equency, Duration) Notes Start Date End Date Status predniSONE 10mg 08/25/2024 08/25/2024 Ac tive MoviPrep 100 GM as directed before c olonoscopy Orally; Duration: 1 dose 11/04/2011 08/25/2024 Active predniSONE 10 [...] is negative. 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 Problems Problem Type SNOMED Code ICD Code Onset Dates Problem Status W/U Status Risk Notes Problem Esophageal reflux (559580651) Esophageal reflux (530.81) Active confirmed Problem Pak's esophagus (750677537) Pak's esophagus (530.85) Active confirmed Problem Crohn's disease of large bowel (1905163) Regional enteritis of large intestine (555.1) Active confirmed Plan Of Treatment Future Test Test Name Order Date UPPER GI ENDOSCOPY 11/04/2011 COLONOSCOPY 11/04/2011 Insurance Providers Payer Name Payer Address Payer Phone Subscriber Number Group Number Insured Name Patient Relationship to Insured Coverage Start Date Coverage End Date [facility] [address] [place] [address] [phone] [id number] EFE FINLEY Self - patient is the insured Medical (General) History Medical History History ICD Code Crohn's disease PTSD Pak's esophagus Surgical History Surgery Date(Month/Year) tonsillectomy deviated septum repair shoulder surgery repair of tendon injury on the right marisabel morrison
--- OUTSIDE RECORDS SUMMARY | 2025-06-21 20:02 | XMS_ITS | Encounter Summary ---
Author Organization [facility] Address [address] [place] [address] Care Team Providers Care Bus Driver Name Role Phone Regi Kelley MD Primary Care Provider [phone] Encounter Details Date Type Department Care Team (Late st Contact Info) Description 03/26/2023 Scanned Document [facility] [address] [place] [phone] Lebron Watkins MD [address] [place] [address] Social History Tobacco Use Types Packs/Day Years [...] on filedocumented in this encounter Care Teams Bus Driver Relationship Specialty Start Date End Date Regi Kelley MD [address] [place] [address] PCP - General Internal Medicine 06/04/21 documented as of this encounter
--- OUTSIDE RECORDS SUMMARY | 2025-06-21 20:02 | XMS_ITS | Patient Health Record ---
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 Problem Vitamin D deficiency (67567226) Vitamin D deficiency, unspecified (E55.9) Active confirmed Problem Insomnia (704283617) Insomnia, unspecified (G47.00) Active confirmed Problem Chronic rhinitis (18654730) Chronic rhinitis (J31.0) Active confirmed Problem Chronic sinusitis (75661808) Chronic sinusitis, unspecified (J32.9) Active confirmed Problem Crohn's disease (29509287) Crohn's disease, unspecified, without complications (K50.90) Active confirmed Problem Adult health examination (275969924) Encounter for general adult medical examination without abnormal findings (Z00.00) Active confirmed Problem Lipid screening (562549733) Encounter for screening for lipoid disorders (Z13.220) Active confirmed Problem Prediabetes (874061890) Prediabetes (R73.03) Active confirmed Problem Essential hypertension (24959254) Essential hypertension (I10) Active confirmed Problem Hyperlipidaemia (92563005) Hyperlipidemia, unspecified hyperlipidemia type (E78.5) Active confirmed Problem Anxiety (20603265) Anxiety (F41.9) Active confi rmed Problem Hypothyroidism (18142134) Hypothyroidism, unspecified type (E03.9) Active confirmed Problem Arthritis (4044627) Arthritis (M19.90) Active confirmed Problem Male hypogonadism (84526447) Hypogonadism in male (E29.1) Active confirmed Problem Obstructive sleep apnea syndrome (62942527) ROEL (obstructive sleep apnea) (G47.33) Active confirmed Problem Essential hypertension (21256221) Hypertension, unspecified type (I10) Active confirmed Problem Gastroesophageal reflux disease (323369839) Gastroesophageal reflux disease, unspecified whether esophagitis present (K21.9) Active confirmed Problem Screening for malignant neoplasm of prostate (066660026) Prostate cancer screening (Z12.5) Active confirmed Problem Atherosclerosis (53900856) Atherosclerosis (I70.90) Active confirmed Problem Syncope and collapse (838425605) Pre-syncope (R55) Active confirmed Problem Amnesia (72711129) Memory change (R41.3) Active confirmed Problem Rhinosinusitis (726305866) Rhinosinusitis (J32.9) Active confirmed Plan Of Treatment [...] End Date [employer] [address] [place] [address] [id number] EFE FINLEY Self - patient is the insured Medical (General) History Medical History History ICD Code Crohns SI Kidney stones (uric acid) Surgical History Surgery Date(Month/Year) deviated septum repair lasik bilateral shoulder ac joint repair bilateral hands tendon repair right hip tonsillectomy
--- OUTSIDE RECORDS SUMMARY | 2025-06-21 20:02 | XMS_ITS | Clinical Summary ---
Author Organization [facility] Address [address] [place] [address] Care Team Providers Care Cook Italian Style Food Name Role Phone Regi Kelley MD Primary [...] 1 3 Active Sodium Sulfate-Mag Sulfate-KCl (Sutab) 5551-770-094 MG TabIndications:C rohn's disease of large intestine without complication (HCC) Take 12 tablets by mouth once. One dose of 12 tablets on the Day Prior to procedure. One dose of 12 tablets on the Day Of the procedure. BIN: [id number] PCN: CN GROUP: [id number] ID: [id number] 24 tablet 3 Active mesalamine (LIALDA) 1.2 [...] season) 2025 Colonoscopy 03/25/2033 03/25/2023 RSV Vaccine 50 years and old er and Patients (1 - 1-dose 75+ series) 2037 Hepatitis B Vaccines Aged Out No long er eligible based on patient's age to complete this topic Insurance [facility] Care Teams Cook Italian Style Food Relationship Specialty Start Date End Date Regi Kelley MD [address] [place] [address] PCP - General Internal Medicine 06/04/21
--- OUTSIDE RECORDS SUMMARY | 2025-06-21 20:02 | XMS_ITS | Clinical Summary ---
Author Organization [facility] [place] [facility] Address [address] [place] [address] Care Team Providers Care It Security Consulting Director Name Role Phone Regi Kelley Primary Care [...] Use Screening 08/25/2024 COVID-19 Vaccine (1 - 2024- season) 2025 Influenza Vaccine (#1) 2025 07/19/2020 RSV Vaccine (60+ years old and patients) (1 - 1-dose 75+ series) 2037 Hepatitis B Vaccines Aged Out No long er eligible based on patient's age to complete this topic Procedures * Due to [place] [employer] law, this organization might not be sharing negative HIV tests. Procedure Name Priority Date/Time Associated Diagnosis Comments COLONOSCOPY 05/22/2017 8:30 AM EDT from Last 3 Months or Most Recently Relevant to Health Maintenance Results * Due to [place] [employer] law, this organization might not be sharing [...] Most Recently Relevant to Health Maintenance Insurance [facility] Advance Directives Documents on File Type Date Recorded Patient Passenger Agent Expl anation Advance Directive 05/17/2014 12:00 AM Adva nce Care Directives Advance Directive 03/10/2012 12:00 AM cherie sales Dec Making (Adv.Dir) Care Teams It Security Consulting Director Relationship Specialty Start Date End Date Regi Kelley [address] [place] [address] PCP - General 07/26/20
== END 2025-06-21 16:51 | disposition home or self-care (01) ==
PROVIDERS: PCP Family Medicine; Visit Provider Physician Assistant Medical
DX: J34.89 Other specified disorders of nose and nasal sinuses (principal)

== ENCOUNTER 2025-06-29 07:43 | Outpatient (REF) | payer OTHER, SELFPAY ==
--- OUTSIDE RECORDS SUMMARY | 2024-03-16 05:00 | XMS_ITS ---
Author Organization [facility] [address] Address [address] [place] [address] Care Team Providers Care Hydro Operator Name Role Phone JAY KELLEY Primary Care Provider Encounters Encounter Location Date Provider Diagnosis [facility] [address] [place] [address] 03/16/2024 JAY KELLEY Plan Of Treatment No Information Progress Notes * EFE [facility]LEY WDOB: 2 (65 yo M)Acc No.[id number]:03/16/2024 CPE Patient: Keon ROMANEFE Provider: Antonia Kelley MD :1960 A ge:64 Y S ex:Male Date:03/16/2024 Address:[address] [place], [place] [id number] Subjective: * Chief Complaints: * * Medical History: Objective: * Vitals: Assessment: Plan: * Treatment: * Images: Billing Information: * Visit Code: * Procedure Codes: Care Plan Details* * Electronic signature of STEPHEN KELLEY MD on 06/29/2025 at 07:46 AM EST Sign off status: Pending * Provider: Antonia Kelley MD Date: 0 03/16/2024 Generated for Vanessa grady/Zoran/eTmarbinsmitting on: 08/29/2024 07:46 AM EST
--- OUTSIDE RECORDS SUMMARY | 2025-06-29 07:46 | XMS_ITS | Clinical Summary ---
Author Organization [facility] Address [address] [place] [address] Care Team Providers Care Physical Education Department Chair Name Role Phone Regi Kelley MD Primary Care Provider [phone] Allergies Active Allergy Reactions Criticality Noted Date [...] 1 3 Active Sodium Sulfate-Mag Sulfate-KCl (Sutab) 4454-060-580 MG TabIndications:C rohn's disease of large intestine without complication (HCC) Take 12 tablets by mouth once. One dose of 12 tablets on the Day Prior to procedure. One dose of 12 tablets on the Day Of the procedure. BIN: [id number] PCN: CN GROUP: [id number] ID: [id number] 24 tablet 3 Active mesalamine (LIALDA) 1.2 [...] patient's age to complete this topic Insurance [facility] Care Teams Physical Education Department Chair Relationship Specialty Start Date End Date Regi Kelley MD [address] [place] [address] PCP - General Internal Medicine 06/04/21
--- OUTSIDE RECORDS SUMMARY | 2025-06-29 07:46 | XMS_ITS | Clinical Summary ---
Author Organization [facility] Address [address] [place] [address] Care Team Providers Care Ex Assistant/Program Director Name Role Phone Regi Kelley Primary Care Provider [phone] Allergies Active Allergy Reactions Criticality Noted Date [...] complete this topic Procedures * Due to [place] [employer] law, this organization might not be sharing negative HIV tests. Procedure Name Priority Date/Time Associated Diagnosis Comments COLONOSCOPY 05/22/2017 8:30 AM EDT from Last 3 Months or Most Recently Relevant to Health Maintenance Results * Due to [place] [employer] law, this organization might not be sharing [...] Most Recently Relevant to Health Maintenance Insurance [facility] Advance Directives Documents on File Type Date Recorded Patient Retread Builder Expl anation Advance Directive 05/17/2014 12:00 AM Adva nce Care Directives Advance Directive 03/10/2012 12:00 AM cherie sales Dec Making (Adv.Dir) Care Teams Ex Assistant/Program Director Relationship Specialty Start Date End Date Regi Kelley [address] [place] [address] PCP - General 07/26/20
--- OUTSIDE RECORDS SUMMARY | 2025-06-29 07:46 | XMS_ITS | Patient Health Record ---
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 Problem Vitamin D deficiency (97447228) Vitamin D deficiency, unspecified (E55.9) Active confirmed Problem Insomnia (464658835) Insomnia, unspecified (G47.00) Active confirmed Problem Chronic rhinitis (13536950) Chronic rhinitis (J31.0) Active confirmed Problem Chronic sinusitis (69298150) Chronic sinusitis, unspecified (J32.9) Active confirmed Problem Crohn's disease (00087474) Crohn's disease, unspecified, without complications (K50.90) Active confirmed Problem Adult health examination (216379100) Encounter for general adult medical examination without abnormal findings (Z00.00) Active confirmed Problem Lipid screening (411146587) Encounter for screening for lipoid disorders (Z13.220) Active confirmed Problem Prediabetes (533179446) Prediabetes (R73.03) Active confirmed Problem Essential hypertension (75823108) Essential hypertension (I10) Active confirmed Problem Hyperlipidaemia (49721575) Hyperlipidemia, unspecified hyperlipidemia type (E78.5) Active confirmed Problem Anxiety (17344424) Anxiety (F41.9) Active confi rmed Problem Hypothyroidism (08876445) Hypothyroidism, unspecified type (E03.9) Active confirmed Problem Arthritis (2224983) Arthritis (M19.90) Active confirmed Problem Male hypogonadism (78565025) Hypogonadism in male (E29.1) Active confirmed Problem Obstructive sleep apnea syndrome (73533515) ROEL (obstructive sleep apnea) (G47.33) Active confirmed Problem Essential hypertension (26791468) Hypertension, unspecified type (I10) Active confirmed Problem Gastroesophageal reflux disease (777353985) Gastroesophageal reflux disease, unspecified whether esophagitis present (K21.9) Active confirmed Problem Screening for malignant neoplasm of prostate (330939236) Prostate cancer screening (Z12.5) Active confirmed Problem Atherosclerosis (35778930) Atherosclerosis (I70.90) Active confirmed Problem Syncope and collapse (025939742) Pre-syncope (R55) Active confirmed Problem Amnesia (76067663) Memory change (R41.3) Active confirmed Problem Rhinosinusitis (488135078) Rhinosinusitis (J32.9) Active confirmed Plan Of Treatment [...] End Date [employer] [address] [place] [address] [id number] EFE FINLEY Self - patient is the insured Medical (General) History Medical History History ICD Code Crohns SI Kidney stones (uric acid) Surgical History Surgery Date(Month/Year) deviated septum repair lasik bilateral shoulder ac joint repair bilateral hands tendon repair right hip tonsillectomy
--- OUTSIDE RECORDS SUMMARY | 2025-06-29 07:46 | XMS_ITS | Encounter Summary ---
Author Organization [facility] Address [address] [place] [address] Care Team Providers Care Bleacher Lard Name Role Phone Regi Kelley MD Primary Care Provider [phone] Encounter Details Date Type Department Care Team (Late st Contact Info) Description 03/26/2023 Scanned Document [facility] [address] [place] [phone] Lebron Watkins MD [address] [place] [address] Social History Tobacco Use Types Packs/Day Years [...] on filedocumented in this encounter Care Teams Bleacher Lard Relationship Specialty Start Date End Date Regi Kelley MD [address] [place] [address] PCP - General Internal Medicine 06/04/21 documented as of this encounter
--- OUTSIDE RECORDS SUMMARY | 2025-06-29 07:47 | XMS_ITS | Clinical Summary ---
Author Organization [facility] Address [address] [place] [address] Care Team Providers Care Office Assistant Receptionist Name Role Phone Unavailable Primary Care Provider [...] topic Solis Thayer Personal/Family Self 1960 [address] [facility] [place] [address]
--- OUTSIDE RECORDS SUMMARY | 2025-06-29 07:47 | XMS_ITS | Patient Health Record ---
Author Organization [facility] Address [address] [place] [address] Care Team Providers Care Supervisor [employer] Name Role Phone Dominique(inactive) Jeovanny MACHADO Primary [...] is negative. 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 Problems Problem Type SNOMED Code ICD Code Onset Dates Problem Status W/U Status Risk Notes Problem Esophageal reflux (229890564) Esophageal reflux (530.81) Active confirmed Problem Pak's esophagus (611607689) Pak's esophagus (530.85) Active confirmed Problem Crohn's disease of large bowel (9282462) Regional enteritis of large intestine (555.1) Active confirmed Plan Of Treatment Future Test Test Name Order Date UPPER GI ENDOSCOPY 11/04/2011 COLONOSCOPY 11/04/2011 Insurance Providers Payer Name Payer Address Payer Phone Subscriber Number Group Number Insured Name Patient Relationship to Insured Coverage Start Date Coverage End Date [facility] [address] [place] [phone] [id number] EFE FINLEY Self - patient is the insured Medical (General) History Medical History History ICD Code Crohn's disease PTSD Pak's esophagus Surgical History Surgery Date(Month/Year) tonsillectomy deviated septum repair shoulder surgery repair of tendon injury on the right marisabel morrison
--- OUTSIDE RECORDS SUMMARY | 2025-06-29 07:47 | XMS_ITS | Clinical Summary ---
Author Organization [address] [place] [address] [place] [phone] Phone Care Team Providers Care Bottom Stop Attacher Name Role Phone Regi Kelley MD Primary Care Provider [phone] Social History Tobacco Use Types Packs/Day Years [...] Procedure Name Priority Date/Time Associated Diagnosis Comments [place] SLEEP STUDY ATTENDED Routine 04/12/2025 10:01 AM EDT from Last 3 Months Results * General sleep study (04/12/2025 10:01 AM EDT) Historical Provider SLEEP CENTER ORDERABLES F inal Result from Last 3 [place] [id number] [facility] Care Teams Bottom Stop Attacher Relationship Specialty Start Date End Date Regi Kelley MD [address] [place] [address] [place] [address] PCP - General Internal Medicine 07/09/21
[2025-06-29 11:54] LABS: Alanine Aminotransferase 22 U/L (0-40); Albumin Level 4.0 g/dL (3.5-5.0); Alkaline Phosphatase 59 U/L (39-117); Anion Gap 10 (12-20); Aspartate Amino Transferase 22 U/L (5-37); Blood Urea Nitrogen 18 mg/dL (9-16); Calcium 8.6 mg/dL (8.4-10.2); Carbon Dioxide 28 mmol/L (22-29); Chloride 106 mmol/L (96-108); Cholesterol 128 mg/dL (<200); Estimated Glomerular Filt Rate > 60; HDL Cholesterol 44 mg/dL (>40); Potassium 4.2 mmol/L (3.3-5.1); Sodium 140 mmol/L (135-145); Total Protein 6.8 g/dL (6.5-8.0); Triglycerides 110 mg/dL (<150)
== END 2025-06-29 07:44 | disposition home or self-care (01) ==
LOC: HO.WFDLDS 07:43
PROVIDERS: Visit Provider Family Medicine
DX: Z00.00 Encounter for general adult medical examination without abnormal findings (principal); R53.83 Other fatigue; I25.10 Atherosclerotic heart disease of native coronary artery without angina pectoris; R73.01 Impaired fasting glucose; M25.50 Pain in unspecified joint; R73.03 Prediabetes
CPT/HCPCS: 36415; 80053; 80061; 83036; 85652; 86141; 86431